=== PATIENT | female | born 1960 | race Caucasian/White ===

== ENCOUNTER 2019-11-24 10:06 | Outpatient (CLI) | payer BC, SELFPAY ==
--- NOTE | 2019-11-24 | ECG_ITS ---
Measurements Intervals [place] Rate: 96 P: 62 TX: 144 QRS: -26 QRSD: 72 T: 74 QT: 326 QTc: 413 Interpretive Statements SINUS RHYTHM DELAYED PRECORDIAL R/S TRANSITION NONSPECIFIC T-WAVE ABNORMALITY- ANTEROLAT/HIGH LAT LEADS BASELINE ARTIFACT- II, III, AVF BORDERLINE ECG Electronically Signed On 11-24-2019 10:33:55 CDT by Daryn Knott D.O.
== END 2019-11-24 10:07 | disposition home or self-care (01) ==
PROVIDERS: PCP Emergency Medicine
DX: M20.42 Other hammer toe(s) (acquired), left foot (principal); Z01.818 Encounter for other preprocedural examination; R94.31 Abnormal electrocardiogram [ECG] [EKG]
CPT/HCPCS: 93005

== ENCOUNTER 2020-03-10 14:30 | Outpatient (CLI) | payer BC, SELFPAY ==
--- NOTE | ~2020-03-10 | US_ITS ---
EXAMINATION: US thyroid DATE: 03/10/2020 14:54 INDICATION: Hypothyroidism. TECHNIQUE: Multiple ultrasound images of the thyroid were obtained. COMPARISON: Ultrasound 10/22/2009 FINDINGS: The right thyroid lobe is absent. The left thyroid lobe measures 3.1 x 1.3 x 1.3 cm. The left thyroi d lobe is hypoechoic with coarsened echotexture. Vascularity is normal. No discrete nodule. IMPRESSION: 1. Chronic heterogeneity of the left thyroid lobe, consistent with chronic thyroiditis. Reviewed, dictated and finalized at location A. AGE CONTROL OPERATOR FORMING IMPRESSION: 1. Chronic heterogeneity of the left thyroid lobe, consistent with chronic thyr oiditis.
--- NOTE | ~2020-03-10 | MM_ITS ---
EXAMINATION: MM screening roel BI w willie HISTORY: Screening mammogram TECHNIQUE: Craniocaudal and mediolateral oblique 3-D tomosynthesis images were obtained and synthetic 2-D images were generated. CAD analysis was submitted and interpreted. COMPARISON: 09/04/2018, 01/02/2016 bilateral digital screening mammogram examinations BREAST PARENCHYMAL COMPOSITION: The breasts are heterogeneously dense, which may obscure small masses . FINDINGS: There are 2 biopsy markers on the right; history of prior benign right breast biopsy. There are scattered bilateral benign calcifications. There is no evidence of suspicious mass, calcifi cation, or architectural distortion to suggest malignancy in either breast. There has been no suspici ous interval change. IMPRESSION: 1. No mammographic evidence of malignancy. 2. Recommend routine screening mammography in one year. BI-RADS Category 2: Benign finding(s). Reviewed, dictated and finalized at location A. ICAL CONSULTANT
== END 2020-03-10 14:31 | disposition home or self-care (01) ==
PROVIDERS: PCP Emergency Medicine; Visit Provider Emergency Medicine
DX: Z12.31 Encounter for screening mammogram for malignant neoplasm of breast (principal); E03.9 Hypothyroidism, unspecified
CPT/HCPCS: 76536; 77063; 77067

== ENCOUNTER 2020-03-31 14:39 | Outpatient (CLI) | payer BC, SELFPAY ==
--- NOTE | ~2020-03-31 | DEXA_ITS ---
Bone Density Report Name: Manda Chavez Age: 59 Sex: Female Ethnicity: White Date of : 1960 Indication: postmenopausal; hysterectomy; Referring Provider: YOKASTA MAJOR Study: Bone densitometry was performed. Exam Date: March 31, 2020 Accession number: [id number] Bone Density: Region BMD T-score Z-score Classification AP Spine (L1-L4) 1.076 0.3 1.6 Normal Femoral Neck (Left) 0.827 -0.2 1.0 Normal Total Hip (Left) 1.063 1.0 1.8 Normal Total Hip Bilateral Avg 1.080 1.2 1.9 Normal Femoral Neck (Right) 0.980 1.2 2.4 Normal Total Hip (Right) 1.095 1.3 2.1 Normal World Health Organization criteria for BMD impression classify patients as: Normal (T-score at or above -1.0), Osteopenia (T-score between -1.0 and -2.5), or Osteoporosis (T-score at or below -2.5). 10-year Fracture Risk: FRAX not reported because: All T-scores for Spine Total, Hip Total, Femoral Neck at or above -1.0 Previous Exams: Region Exam Age BMD T-score BMD Change BMD Change Date g/cm2 vs Baseline vs Previous AP Spine(L1-L4) 03/31/2020 59 1.076 0.3 -0.098(-8.4%)# -0.075(-6.5%)* 08/11/2012 51 1.152 1.0 -0.023(-2.0%)# -0.023(-2.0%)# 04/17/2008 47 1.175 1.2 Total Hip(Left) 03/31/2020 59 1.063 1.0 -0.048(-4.3%)# -0.053(-4.7%)* 08/11/2012 51 1.115 1.4 0.005(0.4%)# 0.005(0.4%)# 04/17/2008 47 1.111 1.4 Total Hip(Right) 03/31/2020 59 1.095 1.3 -0.008(-0.7%)# -0.053(-4.6%)* 08/11/2012 51 1.148 1.7 0.045(4.1%)# 0.045(4.1%)# 04/17/2008 47 1.103 1.3 *Denotes significance at 95% confidence level, LSC for AP Spine = 0.022 g/cm2, LSC for Total Hip = 0.027 g/cm2 Clinical Information Provided by Patient: Has the following medical conditions: Hysterectomy Patient maximum height was 67 Menopause Age: 51 No regular weight bearing exercise Drinks caffeinated beverages Onset of menses at age 13 Number of children 0 Impression: The patient has normal bone mass. The BMD for the AP Spine(L1-L4) decreased, changing by -6.5% since the last DXA exam. The BMD for the Total Hip(Left) decreased, changing by -4.7% since the last DXA exam. The BMD for the Total Hip(Right) decreased, changing by -4.6% since the last DXA exam. Discussion: BONE DENSITY IS ABOVE THE MINIMUM DESIRABLE LEVEL AT ALL SKELETAL SITES TESTED. This patient?s bone mineral density is above the minimum desirable level (T-score -1.0 or better) at all sites measured. The p
== END 2020-03-31 14:40 | disposition home or self-care (01) ==
PROVIDERS: PCP Emergency Medicine; Visit Provider Emergency Medicine
DX: N95.9 Unspecified menopausal and perimenopausal disorder (principal)
CPT/HCPCS: 77080

== ENCOUNTER 2020-04-08 00:53 | Outpatient (CLI) | payer BC, SELFPAY ==
[2020-04-08 18:46] LABS: SARS-CoV-2 RNA PCR Negative
== END 2020-04-08 00:54 | disposition home or self-care (01) ==
LOC: ANHCOVIDDT 00:54
PROVIDERS: PCP Emergency Medicine; Visit Provider Internal Medicine Gastroenterology
DX: Z01.812 Encounter for preprocedural laboratory examination (principal); Z20.822 Contact with and (suspected) exposure to COVID-19
CPT/HCPCS: C9803; U0003; U0005

== ENCOUNTER 2020-04-11 01:53 | Day surgery (SDC) | payer BC, SELFPAY ==
[2020-04-01 08:12] VITALS: BMI 36.6
[2020-04-11 09:09] VITALS: BP 146/109; PULSE 106; RESP 20; TEMP 37.2; O2SAT 99
[2020-04-11] MEDS: LACTATED RINGERS 1,000 ML 150 ML IV CONT (09:19)
--- NOTE | 2020-04-11 10:20 | PM.HPGS ---
History of Present Illness History of Present Illness Consent: Risks, benefits, and alternatives have been discussed and questions answered. Patient agrees to proceed with procedure. Chief complaint: Neoplasm Screening Narrative: Manda Chavez is a 59 year old female here for screening colonoscopy Review of Systems Constitutional: Constitutional: Denies headache(s) and Denies weakness Eyes: Eyes: Denies blurry vision ENT: Reports Normal hearing present, Denies headache(s) and Denies neck pain Cardiovascular: Cardiovascular: Denies chest pain and Denies dyspnea Respiratory: Respiratory: Denies dyspnea Gastrointestinal: Gastrointestinal: Reports no additional gastrointestinal complaints Genitourinary: Genitourinary: Denies dysuria Musculoskeletal: Musculoskeletal: Denies neck pain Integumentary/Breasts: Skin/Breast: Denies dry skin Neurologic: Reports Normal hearing present, Denies headache(s) and Denies weakness Psychiatric: Psychiatric: Denies anxiety Endocrine: Endocrine: Denies change in body appearance Hematologic/Lymphatic: Hematologic/Lymphatic: Denies easy bleeding Allergic/Immunologic: Allergic/Immunologic: Denies urticaria PMFSH Past Medical History Medical History Hypothyroidism (acquired) Family History Family History Sibling Diabetes mellitus Family history of seizure disorder Father Family history of lung cancer, Onset Age: 59 Social History Social History Smoking status: Never smoker Alcohol intake: never Substance use type: does not use Living arrangements: with family Spiritual care concerns: No Meds Home Medications and Allergies Home Medications Medication Instructions Recorded Confirmed Type zolpidem 10 mg tablet 10 mg PO ONCE #30 tablet 06/15/19 04/11/20 Rx levothyroxine 125 mcg tablet See Rx Instructions PO DAILY #90 02/09/20 04/11/20 Rx tablet cetirizine [Zyrtec] 10 mg PO DAILY 04/01/20 04/11/20 History omega 5-wbm-hox-fish oil [Fish Oil] 1 cap PO DAILY 04/01/20 04/11/20 History Allergies Allergy/AdvReac Type Severity Reaction Status Date / Time Penicillins Allergy Unknown Unknown Verified 04/11/20 09:08 Vital Signs Vital Signs - 24 hr 04/11/20 09:09 Temperature 99.0 F Pulse Rate 106 H Respiratory Rate 20 Blood Pressure 146/109 H Pulse Oximetry 99 Exam Const: General: comfortable and no acute distress HENMT: General nose exam: Normal nares present Eyes: General: appearance normal, both eyes and all related structures Neck: Neck: no JVD Resp: Auscultation: clear to auscultation bilaterally Cardio: Rate: regular rate Rhythm: regular rhythm GI: Inspection: non-distended GI Palp: Yes Soft to palpation Skin: General skin exam: normal color Neuro: General: gait normal Speech: normal speech Extrem: General: normal to inspection Psych: Mental Status: mental status grossly normal Assessment and Plan Assessment and plan (1) Colon cancer screening: Code(s): Z12.11 - Encounter for screening for malignant neoplasm of colon Status: Acute Assessment and Plan: will proceed with colonoscopy
--- NOTE | 2020-04-11 10:23 | WPDANESEPP ---
Anes - Eval Pre Procedure Procedure: Operation Date: 04/11/20 10:45 Proposed Procedures p Screening Colonoscopy - Portillo Stevens MD Date/Time: 04/11/20 10:23 Pre Op Diagnosis: Neoplasm Screening Patient Data Age: 59 Gender: F Height: 5 ft 7 in Weight: 106.2 kg Last Vital Signs Temp 99.0 F 04/11/20 09:09 Pulse 106 H 04/11/20 09:09 Resp 20 04/11/20 09:09 BP 146/109 H 04/11/20 09:09 Pulse Ox 99 04/11/20 09:09 Allergies Allergy/AdvReac Type Severity Reaction Status Date / Time Penicillins Allergy Unknown Unknown Verified 04/11/20 09:08 Home Medications Medication Instructions Recorded Confirmed Type zolpidem 10 mg tablet 10 mg PO ONCE #30 tablet 06/15/19 04/11/20 Rx levothyroxine 125 mcg tablet See Rx Instructions PO DAILY #90 02/09/20 04/11/20 Rx tablet cetirizine [Zyrtec] 10 mg PO DAILY 04/01/20 04/11/20 History omega 2-wku-ehn-fish oil [Fish Oil] 1 cap PO DAILY 04/01/20 04/11/20 History Patient hx anesthesia problems: none Family hx anesthesia problems: none PMFSH Past Medical History Medical History (Updated 04/11/20 @ 10:24 by Gaurav Escalante CRNA) Hypothyroidism (acquired) Obesity Surgical History Surgical History (Updated 04/11/20 @ 10:23 by Gaurav Escalante CRNA) H/O arthroscopy of knee H/O: hysterectomy Family History Family History Sibling Diabetes mellitus Family history of seizure disorder Father Family history of lung cancer, Onset Age: 59 Social History Social History Smoking status: Never smoker Alcohol intake: never Substance use type: does not use Living arrangements: with family Spiritual care concerns: No Exam Day of Procedure 04/11/20 10:23 Patient weight: obese Heart: regular rate and rhythm Lungs: clear to auscultation Airway: Mallampati scale class II Risks: SR VR 96
[2020-04-11 10:53] VITALS: BP 131/89; PULSE 96; RESP 16; O2SAT 95
[2020-04-11 11:03] VITALS: BP 146/98; PULSE 95; RESP 20; O2SAT 96
[2020-04-11 11:13] VITALS: BP 160/99; PULSE 92; RESP 22; O2SAT 98
== END 2020-04-11 11:44 | disposition home or self-care (01) ==
PROVIDERS: PCP Emergency Medicine; Visit Provider Internal Medicine Gastroenterology
PROC: 0DJD8ZZ Inspection of Lower Intestinal Tract, Via Natural or Artificial Opening Endoscopic (ICD-10-PCS; CPT 45378; principal; 2020-04-11 10:45)
DX: Z12.11 Encounter for screening for malignant neoplasm of colon (principal); E03.9 Hypothyroidism, unspecified; E66.8 Other obesity; Z68.36 Body mass index [BMI] 36.0-36.9, adult; K57.30 Diverticulosis of large intestine without perforation or abscess without bleeding; K64.8 Other hemorrhoids
CPT/HCPCS: 45378; J2704; J7120

== ENCOUNTER 2021-09-19 07:20 | Outpatient (CLI) | payer BC, SELFPAY ==
--- NOTE | ~2021-09-19 | MM_ITS ---
EXAMINATION: MM screening roel BI w willie HISTORY: Screening TECHNIQUE: Craniocaudal and mediolateral oblique 3-D tomosynthesis images were obtained and synthetic 2-D images were generated. CAD analysis was submitted and interpreted. COMPARISON: Comparison to multiple prior studies sequentially, with oldest reviewed study dated 12/13. BREAST PARENCHYMAL COMPOSITION: The breasts are extremely dense, which lowers the sensitivity of mamm ography FINDINGS: Bilateral breast asymmetries are stable. There are tissue markers in the right breast from prior benign biopsies. There is no evidence of suspicious mass, calcification, or architectural disto rtion to suggest malignancy in either breast. There has been no suspicious interval change. IMPRESSION: 1. No mammographic evidence of malignancy. 2. Recommend routine screening mammography in one year. BI-RADS Category 1: Negative Reviewed, dictated and finalized at location A.
== END 2021-09-19 07:21 | disposition home or self-care (01) ==
LOC: ANHIMG 07:22
PROVIDERS: PCP Emergency Medicine; Visit Provider Obstetrics & Gynecology
DX: Z12.31 Encounter for screening mammogram for malignant neoplasm of breast (principal)
CPT/HCPCS: 77063; 77067

== ENCOUNTER 2022-01-26 13:00 | Outpatient (CLI) | payer BC, SELFPAY ==
[2022-01-26 13:56] LABS: SARS-CoV-2 RNA PCR Positive
== END 2022-01-26 13:01 | disposition home or self-care (01) ==
LOC: ANHLAB 13:02
PROVIDERS: PCP Emergency Medicine; Visit Provider Emergency Medicine
DX: U07.1 COVID-19 (principal)
CPT/HCPCS: U0003; U0005

== ENCOUNTER 2022-04-09 11:23 | Outpatient (CLI) | payer BC, SELFPAY ==
--- NOTE | ~2022-04-09 | XR_ITS ---
XR hip RT 2V w AP pelvis DATE: 04/09/2022 11:39 INDICATION: Right hip pain. Strained groin. TECHNIQUE: AP pelvis. AP and lateral views of right hip COMPARISON: None FINDINGS: Mild lumbar levoscoliosis. The pubic symphysis and sacral iliac joints are intact. No pelvic fracture or bone destruction is det ected. Mild left hip osteoarthritic arthritis. Moderately severe right hip osteoarthritis including joint space narrowing and prominent spurring of the right femoral head. No fracture or dislocation, avascular necrosis or bone destruction of the right hip is detected. IMPRESSION: Moderately severe right hip osteoarthritis Reviewed, dictated and finalized at location B. GENERALIST
== END 2022-04-09 11:24 | disposition home or self-care (01) ==
PROVIDERS: PCP Emergency Medicine; Visit Provider Emergency Medicine
DX: M25.551 Pain in right hip (principal); M16.11 Unilateral primary osteoarthritis, right hip
CPT/HCPCS: 73502

== ENCOUNTER 2022-06-20 13:30 | Outpatient (RCR) | payer BC, SELFPAY ==
--- NOTE | 2022-05-09 15:29 | PTOPEVAL1 ---
Assessment and note entered by Brittany Craig DPT Evaluation Information Assessment Status Evaluation Subjective Information Pt reports bilateral hip pain and OA, reports most of her issue is the right side. Highest pain 9/10 and lowest 0/10. At times gets a stabbing pain with walking, sometimes with rolling over in bed. Sometimes has pain with stairs and sit to stand, or pain with twisting like while doing dishes at her sink. Has been avoiding exercise due to pain. 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 Some pain relief with heat. Sees at the end of May. Reported Pain Level Pain Score 5: Self Report Assessment PT Clinical Summary The patient is presenting to skilled therapy with bilateral hip OA and reports much more pain in her right. She presents with decreased lower extremity strength and gait impairments which are contributing to her pain and difficulty with activities like walking, sit to stand, or rolling over. She will benefit from therapy to address these impairments and safely reduce pain and dysfunction. Plan of Care Interventions Electrical Stimulation,Gait Training,Hot Pack/Cold Pack,Manual Therapy,Neuro Re-education,Patient/ Caregiver Education,Therapeutic Activities, Therapeutic Exercise,Self-Care/Home Management PT Services Indicated Yes Treatment Frequency and 2 times a week for 6 weeks Duration These treatments will address the objective and functional deficits as defined above. The patient will be advanced safely and appropriately in order for the patient to progress towards his/her prior level of function. Additional exercises will be introduced and as well as a comprehensive home exercise program upon discharge, if needed, ?to ensure carryover of functional gains achieved in the clinic. This treatment plan has been reviewed and agreement upon by the patient.
--- NOTE | 2022-05-28 16:14 | PCPTNOTE ---
Patient did not show up for scheduled appointment this date. Called was unable to leave a message mailbox was full.
--- NOTE | 2022-06-20 13:59 | PTOPDC ---
Assessment and note entered by Brittany Craig DPT Evaluation Information Assessment Status Discharge Subjective Information Pt reports feeling the same . Still having pain with certain movements like twisting her legs. Highest pain 10/10 and lowest 0/10. Just saw Dr. Esparza today, still needs to lose 15 pounds prior to doing a total hip replacement. Nothing scheduled so far. Reported Pain Level Pain Score 5: Self Report Assessment PT Clinical Summary The patient has reached a plateau in progress in therapy. She reports her pain is the same as prior to starting therapy. She demonstrates some strength improvements but worse scores on the 5 times sit to stand and 2 minute walk test. Due to these findings, plan to discharge therapy. She has been educated in a thorough HEP to continue addressing strength and function independently, and to follow up with PT and/or MD as needed. Plan of Care Interventions PT Services Indicated No Treatment Frequency and - Duration
== END 2022-06-21 08:40 | disposition home or self-care (01) ==
LOC: ANHPT 13:30
PROVIDERS: PCP Emergency Medicine; Visit Provider Orthopaedic Surgery
DX: M16.0 Bilateral primary osteoarthritis of hip (principal)
CPT/HCPCS: 97014; 97110; 97112; 97140; 97161; 97530; 99199; G0283

== ENCOUNTER 2023-02-03 08:57 | Emergency (ER) | payer BC, SELFPAY ==
--- NOTE | ~2023-02-03 | XR_ITS ---
EXAMINATION: XR chest 2V DATE: 02/03/2023 09:33 INDICATION: Cough. Wheezing. Shortness of breath. TECHNIQUE: Frontal and lateral views of the chest were obtained. COMPARISON: Chest 2 views 03/19/2018 FINDINGS: There is mild atelectasis in left lower lung zone. No pleural effusion or pneumothorax. The heart size is normal. IMPRESSION: 1. Mild atelectasis in left lower lung zone. Reviewed, dictated and finalized at location E. SPLICER
[2023-02-03 09:05] VITALS: BP 155/90; PULSE 99; RESP 18; TEMP 37.1; O2SAT 97
--- NOTE | 2023-02-03 09:26 | ED.GENADULT ---
HPI - General Adult General Chief complaint: Upper Respiratory Infection Stated complaint: Sinus Source: patient Mode of arrival: ambulatory Limitations: no limitations History of Present Illness HPI narrative: Patient presents for evaluation of sick symptoms for over 2 weeks. Symptoms include chest congestion, productive cough of yellow/green sputum, mild shortness of breath, and low-grade fever. No chills, nausea, vomiting or diarrhea. She does not smoke. She states several individuals where she works are sick. She had RSV, COVID and flu vaccines recently. She has taken mucinex for her symptoms. Related Data Home Medications Medication Instructions Recorded Confirmed omega 4-smx-fdo-fish oil 1,000 mg 1 cap PO DAILY 04/01/20 02/03/23 (120 mg-180 mg) capsule (Fish Oil) fexofenadine 60 mg tablet (Yolande 60 mg PO Q12H 01/30/21 02/03/23 Allergy) acetaminophen 650 mg 650 mg PO Q12H 10/16/22 02/03/23 tablet,extended release Allergies Allergy/AdvReac Type Severity Reaction Status Date / Time codeine Allergy Intermediate Hives Verified 10/16/22 08:55 Penicillins Allergy Unknown rash hives Verified 10/16/22 08:55 Review of Systems Review of Systems: CONSTITUTIONAL: Reports low grade fever. Denies chills or sweats. EYES: Denies visual changes, redness, or discharge. ENT: Denies rhinorrhea, congestion, sore throat, or otalgia. CARDIOVASCULAR: Denies chest pain, palpitations, or edema. RESPIRATORY: Reports productive cough of yellow/green sputum and mild SOB GASTROINTESTINAL: Denies abdominal pain, nausea, vomiting, or diarrhea. GENITOURINARY: Denies dysuria or hematuria. SKIN: Denies rash or itching. MUSCULOSKELETAL: Denies back pain, joint pain, or myalgia. NEUROLOGIC: Denies headache, numbness, dizziness, or weakness. PSYCHIATRIC: Denies anxiety or depression. 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 spouse HTN (hypertension) Hypothyroidism (acquired) Obesity Osteoarthritis Screening mammogram, encounter for Surgical History Surgical History H/O arthroscopy of knee left H/O LEEP (~1993) H/O: hysterectomy (05/02/17) RATLH with BSO; uterine prolapse, cervical dysplasia History of colposcopy (01/19/15) Benign History of colposcopy (01/21/17) History of foot surgery right x 2 History of gynecological procedure (11/24/11) endometrial ablation History of gynecological procedure (09/17/11) RA laproscopy w/ adhesiolysis History of partial thyroidectomy (~2002) right side History of tonsillectomy Hx of LASIK Family History Family History Sibling Diabetes mellitus Family history of seizure disorder Pancreatitis Father Family history of lung cancer, Onset Age: 59 Other Heart disease Social History Social History Smoking status: Never smoker Alcohol intake: current Alcohol use details: 1-2 month Substance use: current Substance use type: marijuana Other substance usage details: gummie at night for sleep Lack of Transportation: No Lack of Food: Never True Current Housing: I Have Housing Concerned About Future Housing: No Difficulty Paying Gas/Electric Bills: No Difficulty Paying for Meds: No Currently Unemployed: No Education: Bachelor's Degree Difficulty w/ Childcare or Family Care: No Living arrangements: alone Additional living arrangements comments: Occupation/Education: occupation 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
[2023-02-03] MEDS: IPRATROPIUM BR 0.02% INH SOLN 0.5 MG/2.5 ML VIAL INHALATION (09:38)
[2023-02-03] MEDS: ALBUTEROL SULFATE NEB 2.5 MG/3 ML INH INHALATION (09:38)
[2023-02-03] MEDS: methylPREDNISolone SOD SUCC 125 MG VIAL IM (09:38)
== END 2023-02-03 10:25 | disposition home or self-care (01) ==
PROVIDERS: Emergency Provider Nurse Practitioner; PCP Emergency Medicine
DX: J32.9 Chronic sinusitis, unspecified (principal); I10 Essential (primary) hypertension; E03.9 Hypothyroidism, unspecified; M16.0 Bilateral primary osteoarthritis of hip; E66.9 Obesity, unspecified; Z68.33 Body mass index [BMI] 33.0-33.9, adult
CPT/HCPCS: 71046; 94640; 96372; 99213; G0463; J2930

== ENCOUNTER 2023-02-13 09:23 | Emergency (ER) | payer BC, SELFPAY ==
--- NOTE | ~2023-02-13 | XR_ITS ---
EXAMINATION: XR chest 2V DATE: 02/13/2023 11:02 INDICATION: Productive cough TECHNIQUE: PA and lateral views of the chest are obtained. COMPARISON: 02/03/2023 FINDINGS: There is mild atelectasis of the left lower lung zone. No pleural effusion or pneumothorax. The cardiomediastinal silhouette is normal. There is mild thoracic spondylosis. IMPRESSION: 1. Mild atelectasis of the left lower lung zone. Reviewed, dictated and finalized at location F. E TELEVISION PROGRAM DIRECTOR
[2023-02-13 09:35] VITALS: BP 127/77; PULSE 82; RESP 16; TEMP 37.2; O2SAT 95
--- NOTE | 2023-02-13 10:30 | ED.GENADULT ---
HPI - General Adult General Chief complaint: Upper Respiratory Infection Stated complaint: bad cough Time Seen by Provider: 02/13/23 10:41 Source: patient Mode of arrival: ambulatory Limitations: no limitations History of Present Illness HPI narrative: 62 y/o female presented for continued cough and chest congestion with mild sob for over 3 weeks. Pt was seen here on 02/03/23 for the same symptoms, and states she completed the antibiotic and steroid as directed but feels no improvement. denies chest pain, palpitations, wheezing, nausea, vomiting, diarrhea, fevers or chills. She has taken Mucinex and uses nasal spray and Yolande. Related Data Home Medications Medication Instructions Recorded Confirmed omega 7-vwz-ekv-fish oil 1,000 mg 1 cap PO DAILY 04/01/20 02/03/23 (120 mg-180 mg) capsule (Fish Oil) fexofenadine 60 mg tablet (Yolande 60 mg PO Q12H 01/30/21 02/03/23 Allergy) acetaminophen 650 mg 650 mg PO Q12H 10/16/22 02/03/23 tablet,extended release Flonase 02/13/23 Allergies Allergy/AdvReac Type Severity Reaction Status Date / Time codeine Allergy Intermediate Hives Verified 02/13/23 10:49 Penicillins Allergy Unknown rash hives Verified 02/13/23 10:49 Review of Systems Review of Systems: CONSTITUTIONAL: Denies body aches, fever, chills, or sweats. EYES: Denies visual changes, redness, or discharge. ENT: Denies rhinorrhea, congestion, sore throat, or otalgia. CARDIOVASCULAR: Denies chest pain, palpitations, or edema. RESPIRATORY: Reports cough, sob GASTROINTESTINAL: Denies abdominal pain, nausea, vomiting, or diarrhea. GENITOURINARY: Denies dysuria or hematuria. SKIN: Denies rash, itching, or wounds. MUSCULOSKELETAL: Denies back pain, joint pain, or myalgia. NEUROLOGIC: Denies headache, numbness, tingling, or weakness. All systems reviewed & are unremarkable except as noted in HPI and below PMFSH Past Medical History Medical History Bilateral hip joint arthritis Depression after loss of spouse HTN (hypertension) Hypothyroidism (acquired) Obesity Osteoarthritis Screening mammogram, encounter for Surgical History Surgical History H/O arthroscopy of knee left H/O LEEP (~1993) H/O: hysterectomy (05/02/17) RATLH with BSO; uterine prolapse, cervical dysplasia History of colposcopy (01/19/15) Benign History of colposcopy (01/21/17) History of foot surgery right x 2 History of gynecological procedure (11/24/11) endometrial ablation History of gynecological procedure (09/17/11) RA laproscopy w/ adhesiolysis History of partial thyroidectomy (~2002) right side History of tonsillectomy Hx of LASIK Family History Family History Sibling Diabetes mellitus Family history of seizure disorder Pancreatitis Father Family history of lung cancer, Onset Age: 59 Other Heart disease Social History Social History Smoking status: Never smoker Alcohol intake: current Alcohol use details: 1-2 month Substance use: current Substance use type: marijuana Other substance usage details: gummie at night for sleep Lack of Transportation: No Lack of Food: Never True Current Housing: I Have Housing Concerned About Future Housing: No Difficulty Paying Gas/Electric Bills: No Difficulty Paying for Meds: No Currently Unemployed: No Education: Bachelor's Degree Difficulty w/ Childcare or Family Care: No Living arrangements: alone Additional living arrangements comments: Occupation/Education: occupation 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
== END 2023-02-13 11:22 | disposition home or self-care (01) ==
PROVIDERS: Emergency Provider Nurse Practitioner Family; PCP Emergency Medicine
DX: R05.9 Cough, unspecified (principal); E03.9 Hypothyroidism, unspecified; I10 Essential (primary) hypertension
CPT/HCPCS: 71046; 99213; G0463

== ENCOUNTER 2023-02-22 06:40 | Outpatient (CLI) | payer BC, SELFPAY ==
--- NOTE | ~2023-02-22 | CT_ITS ---
EXAMINATION: CT sinus wo con DATE: 02/22/2023 06:57 INDICATION: Chronic sinusitis TECHNIQUE: Computed tomography (CT) of the paranasal sinuses was performed without intravenous contra st. The dose-length product was 250.27 mGy-cm. Automated exposure control and iterative reconstructio n technique were employed. COMPARISON: None FINDINGS: There is mucosal thickening of the ethmoid and left sphenoid sinus. No air-fluid levels. No significant mucoperiosteal reaction. Leftward nasal septal deviation. Ostiomeatal unit on the right is patent. Left ostiomeatal unit is partially occluded by soft tissue. Mastoids are pneumatized. IMPRESSION: 1. Mild sinusitis. Reviewed, dictated and finalized at location B. REPAIRER BENCH IMPRESSION: 1. Mild sinusitis.
== END 2023-02-22 06:41 | disposition home or self-care (01) ==
PROVIDERS: PCP Emergency Medicine; Visit Provider Emergency Medicine
DX: J32.9 Chronic sinusitis, unspecified (principal)
CPT/HCPCS: 70486

== ENCOUNTER 2023-03-01 17:05 | Emergency (ER) | payer BC, SELFPAY ==
[2023-03-01 17:17] VITALS: BP 151/87; PULSE 99; RESP 18; TEMP 38.1; O2SAT 95
--- NOTE | 2023-03-01 17:53 | ED.URI ---
HPI - URI/Sore Throat General Chief Complaint: Upper Respiratory Infection Stated Complaint: Sinus Time Seen by Provider: 03/01/23 17:34 Source: patient, RN notes reviewed and old records reviewed Mode of arrival: ambulatory Limitations: no limitations History of Present Illness HPI Narrative: Patient presents today complaining of nasal congestion, rhinorrhea, cough, sinus pressure since December. Since that time she has been on 2 rounds of antibiotics and 2 rounds of steroids without relief. She has been to see her PCP, last visit was 4 days ago after she had a sinus CT done. It showed mild sinusitis and patient was instructed to use Flonase and an antihistamine. She is scheduled to see ENT on March 28 for follow-up. Patient presents today asking if she can be placed on an additional course of antibiotics to see if this will help with her symptoms. She has been using Flonase,Vicks, Yolande, and a saline nasal rinse at home for her symptoms. Cough and congestion has not changed in severity. Denies shortness of breath, chest pain. She also reports a new onset fever last night up to 101.9 at home. She took a dose of aspirin at 4:00 p.m. today. 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 Related Data Home Medications Medication Instructions Recorded Confirmed omega 4-wgm-maa-fish oil 1,000 mg 1 cap PO DAILY 04/01/20 03/01/23 (120 mg-180 mg) capsule (Fish Oil) fexofenadine 60 mg tablet (Yolande 60 mg PO Q12H 01/30/21 03/01/23 Allergy) fluticasone propionate 50 1 spray intranasal BID 02/19/23 03/01/23 mcg/actuation nasal spray,suspension (Flonase Allergy Relief) Allergies Allergy/AdvReac Type Severity Reaction Status Date / Time codeine Allergy Intermediate Hives Verified 03/01/23 17:20 Penicillins Allergy Unknown rash hives Verified 03/01/23 17:20 Review of Systems Review of Systems: CONSTITUTIONAL: Denies body aches, chills, or sweats.+ fever EYES: Denies visual changes, redness, or discharge. ENT: Denies sore throat, or otalgia.+ rhinorrhea, congestion, sinus pressure CARDIOVASCULAR: Denies chest pain, palpitations, or edema. RESPIRATORY: Denies dyspnea.+ cough GASTROINTESTINAL: Denies abdominal pain, nausea, vomiting, or diarrhea. GENITOURINARY: Denies dysuria or hematuria. SKIN: Denies rash, itching, or wounds. MUSCULOSKELETAL: Denies back pain, joint pain, or myalgia. NEUROLOGIC: Denies headache, numbness, tingling, or weakness. PSYCH: Denies depression or anxiety. [facility] Past Medical History Medical History Bilateral hip joint arthritis Depression after loss of spouse HTN (hypertension) Hypothyroidism (acquired) Obesity Osteoarthritis Screening mammogram, encounter for Surgical History Surgical History H/O arthroscopy of knee left H/O LEEP (~1993) H/O: hysterectomy (05/02/17) RATLH with BSO; uterine prolapse, cervical dysplasia History of colposcopy (01/19/15) Benign History of colposcopy (01/21/17) History of foot surgery right x 2 History of gynecological procedure (11/24/11) endometrial ablation History of gynecological procedure (09/17/11) RA laproscopy w/ adhesiolysis History of partial thyroidectomy (~2002) right side History of tonsillectomy Hx of LASIK Family History Family History Sibling Diabetes mellitus Family history of seizure disorder Pancreatitis Father Family history of lung cancer, Onset Age: 59 Other Heart disease Social History Social History Smoking status: Never smoker Alcohol intake: current Alcohol use details: 1-2 month Substance use: current Substance use type: marijuana Other substance usage details: gummie at night for sleep Lack of Transportation: No
== END 2023-03-01 18:25 | disposition home or self-care (01) ==
PROVIDERS: Emergency Provider Nurse Practitioner; PCP Emergency Medicine
DX: R50.9 Fever, unspecified (principal); J32.9 Chronic sinusitis, unspecified; I10 Essential (primary) hypertension; E03.9 Hypothyroidism, unspecified; Z79.899 Other long term (current) drug therapy; Z20.822 Contact with and (suspected) exposure to COVID-19
CPT/HCPCS: 87420; 87426; 87804; 99213; C9803; G0463

== ENCOUNTER 2023-03-03 16:41 | Emergency (ER) | payer BC, SELFPAY ==
[2023-03-03] VITALS (15 sets, daily range): BP systolic 123–151; BP diastolic 78–84; PULSE 102–118; RESP 17–20; TEMP 36.5–38; O2SAT 93–98
--- NOTE | ~2023-03-03 | XR_ITS ---
EXAMINATION: XR chest 2V Exam Date/Time: 03/03/2023 17:26 STEAM BOX HAND HISTORY: cough, fevers, uri sxs Comparison: 02/13/2023. RESULT: Lines, tubes, and devices: None. Lungs and pleura: Segmental left lower lobe consolidation. Cardiomediastinal silhouette: Stable. Other: No acute osseous or upper abdominal finding. IMPRESSION: Segmental left lower lobe airspace disease concerning for pneumonia. Reviewed, dictated and finalized at location K. M BOX HAND
[2023-03-03 17:40] LABS: Influenza A QL RT-PCR Negative (Negative); Influenza B QL RT-PCR Negative (Negative); RSV RNA, RT-PCR Negative (Negative); SARS-CoV-2 RNA PCR Negative (Negative)
[2023-03-03 17:51] LABS: Basophils Percent Auto 0.4 % (0.2-1.2); Eosinophils Absolute Auto 0.1 K/mm3 (0-0.3); Eosinophils Percent Auto 1.2 % (0-4.4); Hematocrit 41.6 % (37.0-47.0); Hemoglobin 13.1 g/dL (12.0-15.0); Immature Granulocyte Absolute 0.03 K/mm3 (0.00-0.031); Immature Granulocyte Percent A 0.3 % (0-0.5); Lymphocytes Absolute Auto 1.01 K/mm3 (0.9-3.2); Lymphocytes Percent Auto 9.8 % (18.3-44.2); Mean Corpuscular HGB Conc 31.5 g/dl (32-36); Mean Corpuscular Hemoglobin 26.5 pg (26-34); Mean Platelet Volume 8.7 fl (7.4-10.4); Monocytes Absolute Auto 0.9 K/mm3 (0.1-0.6); Neutrophils Absolute Auto 8.2 K/mm3 (1.3-6.7); Neutrophils Percent Auto 79.3 % (45.5-73.1); Platelet Count Result 227 k/mm3 (150-375); Red Blood Count 4.95 M/mm3 (4.2-5.4); Red Cell Distribution Width 14.1 % (11.5-14.5); White Blood Count 10.3 K/mm3 (4.5-10.0)
--- NOTE | 2023-03-03 18:02 | ED.URI ---
HPI - URI/Sore Throat General Chief Complaint: Upper Respiratory Infection Stated Complaint: congestion Time Seen by Provider: 03/03/23 17:02 Source: patient and old records reviewed Mode of arrival: ambulatory Limitations: no limitations History of Present Illness HPI Narrative: Patient is a 62-year-old female who presents to the ED with report of URI symptoms. Patient reports having persistent cough, congestion, intermittent fevers for the past 1.5 months, since before . She has been seen at the urgent care several times and been on courses of doxycycline and Levaquin, 2 courses of steroids, using an inhaler, Zyrtec/Yolande, and awpz-wlx-zhmejaa decongestants without improvement. She states since Saturday, she has had more persistent fevers. Today had a fever up to 103.4? F at home. She did take aspirin prior to arrival. Patient reports occasional production of sputum with cough. Denies shortness breath, chest pain. Denies any other infectious symptoms, abdominal pain, nausea, vomiting, diarrhea, constipation, dysuria, hematuria. Related Data Home Medications Medication Instructions Recorded Confirmed omega 0-yvj-qsm-fish oil 1,000 mg 1 cap PO DAILY 04/01/20 03/01/23 (120 mg-180 mg) capsule (Fish Oil) fexofenadine 60 mg tablet (Yolande 60 mg PO Q12H 01/30/21 03/01/23 Allergy) fluticasone propionate 50 1 spray intranasal BID 02/19/23 03/01/23 mcg/actuation nasal spray,suspension (Flonase Allergy Relief) Allergies Allergy/AdvReac Type Severity Reaction Status Date / Time codeine Allergy Intermediate Hives Verified 03/03/23 16:49 Penicillins Allergy Unknown rash hives Verified 03/03/23 16:49 Review of Systems Review of Systems: CONSTITUTIONAL: See PI. ENT: See HPI. CARDIOVASCULAR: Denies chest pain. RESPIRATORY: see HPI. GASTROINTESTINAL: Denies abdominal pain, nausea, vomiting, or diarrhea. GENITOURINARY: Denies dysuria or hematuria. MUSCULOSKELETAL: Denies back pain, joint pain, or myalgia. All systems reviewed & are unremarkable except as noted in HPI and below PMFSH Past Medical History Medical History Bilateral hip joint arthritis Depression after loss of spouse HTN (hypertension) Hypothyroidism (acquired) Obesity Osteoarthritis Screening mammogram, encounter for Surgical History Surgical History H/O arthroscopy of knee left H/O LEEP (~1993) H/O: hysterectomy (05/02/17) RATLH with BSO; uterine prolapse, cervical dysplasia History of colposcopy (01/19/15) Benign History of colposcopy (01/21/17) History of foot surgery right x 2 History of gynecological procedure (11/24/11) endometrial ablation History of gynecological procedure (09/17/11) RA laproscopy w/ adhesiolysis History of partial thyroidectomy (~2002) right side History of tonsillectomy Hx of LASIK Family History Family History Sibling Diabetes mellitus Family history of seizure disorder Pancreatitis Father Family history of lung cancer, Onset Age: 59 Other Heart disease Social History Social History Smoking status: Never smoker Alcohol intake: current Alcohol use details: 1-2 month Substance use: current Substance use type: marijuana Other substance usage details: gummie at night for sleep Lack of Transportation: No Lack of Food: Never True Current Housing: I Have Housing Concerned About Future Housing: No Difficulty Paying Gas/Electric Bills: No Difficulty Paying for Meds: No Currently Unemployed: No Education: Bachelor's Degree Difficulty w/ Childcare or Family Care: No Living arrangements: alone Additional living arrangements comments: Occupation/Education: occupation Additional occupatio
[2023-03-03 18:05] LABS: Lactic Acid Reflex 0.9 mmol/L (0.7-2.0)
[2023-03-03 18:07] LABS: Alanine Aminotransferase 42 U/L (6-35); Albumin Level 4.1 g/dL (3.5-5.1); Alkaline Phosphatase 99 U/L (38-126); Anion Gap 8 mmol/L (8-16); Aspartate Amino Transferase 52 U/L (14-36); Bilirubin,Total 0.6 mg/dL (0.2-1.3); Blood Urea Nitrogen 23 mg/dL (7-17); Calcium 8.8 mg/dL (8.4-10.2); Carbon Dioxide 22 mmol/L (22-30); Chloride 108 mmol/L (98-107); Estimated CRCL calculation 62 ml/min; Estimated Glomerular Filt Rate 56; Glucose 113 mg/dL (65-110); Potassium 4.2 mmol/L (3.4-5.0); Sodium 138 mmol/L (137-145)
[2023-03-03] MEDS: ACETAMINOPHEN 500 MG TABLET 1000 MG PO (18:37)
[2023-03-03] MEDS: SODIUM CHLORIDE 0.9% IV 1,000 ML 999 ML IV CONT ×2 (18:38→19:20)
[2023-03-03] MEDS: levoFLOXacin 750 MG/D5W 150 ML 750 MG/150 ML BAG 100 MG IVPB (18:38)
[2023-03-03 19:04] LABS: Appearance Urine Clear (Clear); Bilirubin Urine Negative (Negative); Blood Urine Negative (Negative); Color Urine Yellow (Yellow); Glucose Urine UA Negative (Negative); Ketones Urine Negative (Negative); Leukocyte Esterase Ur Negative LEU/UL (Negative); Nitrate Urine Negative (Negative); Protein Urine Negative (Negative); Specific Grav Ur 1.017 (1.001-1.035); Urobilinogen Urine 0.2 mg/dL (<2.0); pH Urine 5.5 (5.0-9.0)
--- NOTE | 2023-03-03 19:08 | PC.NURSE ---
Report received from MARCUS Rivera. Assumed care of patient at this time.
--- NOTE | 2023-03-03 19:10 | ECG_ITS ---
Measurements Intervals [place] Rate: 110 P: 49 TN: 142 QRS: -20 QRSD: 76 T: 42 QT: 333 QTc: 451 Interpretive Statements SINUS TACHYCARDIA WITH OCCASIONAL SUPRAVENTRICULAR PREMATURE COMPLEXES NONSPECIFIC T-WAVE ABNORMALITY ABNORMAL ECG COMPARED TO ECG 11/24/2019 10:28:01 SINUS TACHYCARDIA NOW PRESENT Electronically Signed On 03-04-2023 12:43:54 BLANKET BINDER by Gatito Ashby M.D.
[2023-03-03 19:21] LABS: Add Urine Microscopic? NO
--- NOTE | 2023-03-03 19:50 | PC.NURSE ---
Patient given water and crackers upon request.
--- NOTE | 2023-03-03 20:10 | PC.NURSE ---
Patient states she feels better and would like to go home. ERP notified and speaking with patient.
== END 2023-03-03 21:19 | disposition home or self-care (01) ==
PROVIDERS: Student in an Organized Health Care Education/Training Program; Emergency Provider Physician Assistant; PCP Emergency Medicine
DX: J18.9 Pneumonia, unspecified organism (principal); Z20.822 Contact with and (suspected) exposure to COVID-19; I10 Essential (primary) hypertension; E66.9 Obesity, unspecified; Z68.33 Body mass index [BMI] 33.0-33.9, adult; E89.0 Postprocedural hypothyroidism; M16.0 Bilateral primary osteoarthritis of hip; Z90.710 Acquired absence of both cervix and uterus
CPT/HCPCS: 36415; 71046; 80053; 81003; 83605; 85025; 87040; 87637; 93005; 96365; 96366; 96367; 99284; A9270; J0696; J1956; J7030

== ENCOUNTER → 2023-04-03 12:55 | Outpatient (CLI) | payer BC, SELFPAY ==
--- NOTE | ~2023-04-03 | MR_ITS ---
EXAMINATION: MR brain/brain stem wo/w con DATE: 04/03/2023 13:32 INDICATION: Encephalocele, unspecified. TECHNIQUE: Magnetic resonance imaging (MRI) of the brain and brainstem was performed without and with 20 mL MultiHance intravenous contrast. COMPARISON: Sinuses CT 02/22/2023 FINDINGS: There are scattered areas of nonspecific increased T2-weighted signal intensity in the cere bral white matter. There is no intracranial hemorrhage, acute infarction, or abnormal intracranial ma ss lesion. The ventricles are normal in size. There is mucosal thickening and dependent fluid in the paranasal sinuses. In the right ethmoid sinus, there is a 11 mm cyst contiguous with a skull base deh iscence. The orbits are normal. The mastoid air cells are normal. IMPRESSION: 1. 11 mm cyst in the right ethmoid sinus contiguous with a skull base dehiscence, consistent with an encephalocele. 2. Mild nonspecific cerebral white matter disease, which likely represents chronic small vessel ische marsha disease. Reviewed, dictated and finalized at location A. TER MIXER IMPRESSION: 1. 11 mm cyst in the right ethmoid sinus contiguous with a skull base dehiscenc e, consistent with an encephalocele. 2. Mild nonspecific cerebral white matter disease, which likely represents small package and bundle sorter clerk annalisa small vessel ischemic disease.
== END ==
PROVIDERS: PCP Otolaryngology; Visit Provider Otolaryngology
DX: Q01.9 Encephalocele, unspecified (principal); R90.82 White matter disease, unspecified; J34.1 Cyst and mucocele of nose and nasal sinus
CPT/HCPCS: 70553; A9577

== ENCOUNTER 2023-05-01 14:11 | Outpatient (CLI) | payer BC, SELFPAY ==
--- NOTE | ~2023-05-01 | MM_ITS ---
EXAMINATION: MM screening roel BI w willie HISTORY: Screening mammogram TECHNIQUE: Craniocaudal and mediolateral oblique 3-D tomosynthesis images were obtained and synthetic 2-D images were generated. CAD analysis was submitted and interpreted. COMPARISON: 09/19/2021, 03/10/2020, 09/04/2018, 01/02/2016 bilateral screening mammogram examinations BREAST PARENCHYMAL COMPOSITION: The breasts are heterogeneously dense, which may obscure small masses . FINDINGS: There is asymmetry in the left; diagnostic left mammogram is recommended, with ultrasound i f required. Biopsy markers are noted in the right breast; history of prior benign right breast biopsies. Otherwise no suspicious mass, architectural distortion, malignant calcification, skin thickening or r etraction or significant new or developing density of either breast is detected. IMPRESSION: 1. Left mammographic asymmetries 2. Recommend diagnostic left mammogram, with ultrasound if required BI-RADS Category 0: Incomplete: Needs additional imaging evaluation. Reviewed, dictated and finalized at location A. ERMAKER HELPER
== END 2023-05-01 14:12 | disposition home or self-care (01) ==
LOC: ANHIMG 14:14
PROVIDERS: PCP Emergency Medicine; Visit Provider Emergency Medicine
DX: Z12.31 Encounter for screening mammogram for malignant neoplasm of breast (principal); R92.8 Other abnormal and inconclusive findings on diagnostic imaging of breast
CPT/HCPCS: 77063; 77067

== ENCOUNTER 2023-06-04 11:11 | Outpatient (CLI) | payer BC, SELFPAY ==
--- NOTE | ~2023-06-04 | MMUS_ITS ---
EXAMINATION: MM diagnostic roel LT w willie, US breast LT complete HISTORY: Left mammographic asymmetry reported on May 01, 2023 screening mammogram TECHNIQUE: Additional 3-D tomosynthesis images of the left breast were performed and synthetic 2-D im ages were generated. CAD analysis was submitted and interpreted. High resolution complete left breast ultrasound examination including all 4 quadrants and subareolar area was performed. COMPARISON: May 01, 2023, 09/19/2021 lateral screening mammogram examinations FINDINGS: MAMMOGRAPHIC FINDINGS: No reproducible mass is evident on these supplemental diagnostic left mammogram images. ULTRASOUND: Small cysts are noted at 4:00 and 6:00. No suspicious mass or shadowing of the left breast is detected. IMPRESSION: 1. Benign findings 2. Routine annual mammographic screening is recommended BI-RADS Category 2: Benign finding(s). Reviewed, dictated and finalized at location A. IMPRESSION: 1. Benign findings 2. Routine annual mammographic screening is recommended BI-RADS Category 2: Benign finding(s).
== END 2023-06-04 11:12 | disposition home or self-care (01) ==
PROVIDERS: PCP Emergency Medicine; Visit Provider Emergency Medicine
DX: N64.89 Other specified disorders of breast (principal)
CPT/HCPCS: 76641; 77061; 77065; G0279

== ENCOUNTER 2023-08-20 09:49 | Outpatient (CLI) | payer BC, SELFPAY ==
[2023-08-20 12:18] LABS: Basophils Absolute Auto 0.1 K/mm3 (0.0-0.1); Eosinophils Absolute Auto 0.2 K/mm3 (0-0.3); Eosinophils Percent Auto 2.7 % (0-4.4); Hemoglobin 13.8 g/dL (12.0-15.0); Immature Granulocyte Absolute 0.02 K/mm3 (0.00-0.031); Immature Granulocyte Percent A 0.3 % (0-0.5); Lymphocytes Absolute Auto 2.19 K/mm3 (0.9-3.2); Lymphocytes Percent Auto 35.2 % (18.3-44.2); Mean Corpuscular HGB Conc 30.7 g/dl (32-36); Mean Corpuscular Hemoglobin 27.1 pg (26-34); Mean Corpuscular Volume 88.4 fl (80-100); Mean Platelet Volume 10.2 fl (7.4-10.4); Monocytes Absolute Auto 0.5 K/mm3 (0.1-0.6); Monocytes Percent Auto 7.7 % (2.6-8.5); Neutrophils Absolute Auto 3.3 K/mm3 (1.3-6.7); Neutrophils Percent Auto 53.1 % (45.5-73.1); Platelet Count Result 171 k/mm3 (150-375); Red Blood Count 5.09 M/mm3 (4.2-5.4); Red Cell Distribution Width 13.4 % (11.5-14.5); White Blood Count 6.2 K/mm3 (4.5-10.0)
[2023-08-20 12:25] LABS: Urine Cotinine NEGATIVE
== END 2023-08-20 09:50 | disposition home or self-care (01) ==
LOC: ANHSURGERY 09:54
PROVIDERS: PCP Emergency Medicine; Visit Provider Orthopaedic Surgery
DX: Z01.818 Encounter for other preprocedural examination (principal); M16.11 Unilateral primary osteoarthritis, right hip
CPT/HCPCS: 80307; 85025; 86850; 86900; 86901

== ENCOUNTER 2023-08-27 14:43 | Observation (INO) | payer BC, SELFPAY ==
[2023-08-20 10:14] VITALS: BP 143/93; PULSE 84; RESP 16; TEMP 37.3; O2SAT 97; BMI 34.8
--- NOTE | 2023-08-20 10:31 | PC.NURSE ---
Report to the Outpatient Waiting Room, entrance under the green pavilion located off [facility], at time __6:00AM on date __08/26/23 . Planned Procedure Time: __7:30AM . Time changes happen often and if your time is changed the preop area will call you the afternoon before. - You and your visitor will be asked to self-screen and do not enter if you have any COVID symptoms. - A mask is optional within the hospital at this time. Patients may have clear liquids (water, carbonated beverages, clear teas, apple juice) until 3 hours prior to surgery with a maximum of 20 ounces. - No food from midnight until time of surgery. Take the following medications with a SIP of water the morning of surgery: ___LEVOTHYROXINE DO NOT STOP ANY OF YOUR OTHER PRESCRIPTION MEDICATIONS PRIOR TO SURGERY ?EXCEPT THE FOLLOWING Medications to discontinue per physician ____HOLD ALL VITAMINS/SUPPLEMENTS 3 DAYS PRE-OP- LAST DOSE 08/22/[address] FRANKLIN. Please no make-up, nail burkinan, hairspray, perfume, deodorant, or body powder the day of surgery. No jewelry (including any body piercings) or valuables the day of surgery, leave them at home. Please take a shower or bath the night before, or the morning of, surgery with an antibacterial soap. Wear comfortable, loose fitting clothing. - Jewelry must be removed prior to entering the operating room. Rings and piercings that are not removed may be cut off. - The hospital will not accept responsibility for valuables. - Please leave all valuables, including medications, at home the day of surgery. If you are going home after surgery, a licensed delivery driver/customer service must drive you home. - NO public transportation without another adult if you receive anesthesia. - We recommend that an adult stay with you for 24 hours following discharge. - We also recommend that you do not drive, make important decision, drink alcoholic beverages, or take any drugs that were not prescribed by your health care provider for at least 24 hours after your discharge time. Follow any additional instructions given to you from your surgeon. If you or anyone in your household have experienced Covid symptoms in the past week, please notify your surgeon or the nurse liaison at the phone number below for possible testing. Telephone instructions given to ____PATIENT and asked if any additional questions and then verbalized understanding. Patient advised to call surgeon office or pre surgery nurse liaison [phone] if any additional questions.
--- NOTE | 2023-08-22 07:27 | PM.IMHP ---
H&P: HPI History of Present Illness Date/Time: 08/22/23 07:27 Chief Complaint: Patient has hip pain right. She has an arthritic RIGHT hip that this been unresponsive to conservative treatment. She would like to proceed with hip replacement surgery. Review of Systems Musculoskeletal: Musculoskeletal: Reports arthralgias, Reports joint swelling and Reports stiffness [facility] Past Medical History Medical History Abnormal cervical Papanicolaou smear Acute non-recurrent frontal sinusitis Atypical mole Bilateral hip joint arthritis Bronchitis Chronic frontal sinusitis Chronic maxillary sinusitis Chronic right shoulder pain Fatigue HTN (hypertension) Hypothyroidism (acquired) Hypothyroidism (acquired) Obesity Osteoarthritis Other chronic pain Primary insomnia Right foot pain Screening mammogram, encounter for Superior glenoid labrum lesion of right shoulder Tuberculosis screening Surgical History Surgical History H/O arthroscopy of knee left H/O LEEP (~1993) H/O: hysterectomy (05/02/17) RATLH with BSO; uterine prolapse, cervical dysplasia History of colposcopy (01/19/15) Benign History of colposcopy (01/21/17) History of foot surgery right x 2 History of gynecological procedure (11/24/11) endometrial ablation History of gynecological procedure (09/17/11) RA laproscopy w/ adhesiolysis History of nasal surgery History of partial thyroidectomy (~2002) right side History of tonsillectomy Hx of LASIK Family History Family History Sibling Diabetes mellitus Family history of seizure disorder Pancreatitis Father Family history of lung cancer, Onset Age: 59 Other Heart disease Mother COPD (chronic obstructive pulmonary disease) Emphysema/COPD Social History Social History Smoking status: Never smoker Alcohol intake: current Drinks per week: 2 Alcohol use details: 1-2 month Substance use: current Substance use type: marijuana Other substance usage details: 1 GUMMIE AT NIGHT Do You Feel Safe in your Home?: Yes Current Housing: Decline to Answer Concerned About Future Housing: Decline to Answer Difficulty Paying Gas/Electric Bills: Decline to Answer Difficulty Paying for Meds: Decline to Answer Currently Unemployed: Decline to Answer Education: Decline to Answer Difficulty w/ Childcare or Family Care: Decline to Answer Living arrangements: alone Additional living arrangements comments: Occupation/Education: occupation 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 Gender identity (if verbalized by the patient): Female Sexual Orientation (if Verbalized by the Patient): Straight or Heterosexual Spiritual care concerns: No Meds Home Medications and Allergies Home Medications Medication Instructions Recorded Confirmed Type omega 9-kra-bqs-fish oil 1,000 mg 1 cap PO DAILY 04/01/20 08/20/23 History (120 mg-180 mg) capsule (Fish Oil) fexofenadine 60 mg tablet (Yolande 60 mg PO QAM 01/30/21 08/20/23 History Allergy) losartan 50 mg tablet See Rx Instructions .Route 01/30/23 08/20/23 Rx .COMPLEX #90 tabs levothyroxine 137 mcg tablet See Rx Instructions .Route 02/06/23 08/20/23 Rx .COMPLEX #90 tabs fluticasone propionate 50 1 spray intranasal BID 02/19/23 08/20/23 History mcg/actuation nasal spray,suspension (Flonase Allergy Relief) celecoxib 200 mg capsule See Rx Instructions .Route 03/19/23 08/20/23 Rx .COMPLEX #90 caps azelastine 137 mcg (0.1 %) nasal 1 spray intranasal .qd-bid #30 mL 04/23/23 08/20/23 Rx spray aerosol tolterodine 2 mg tablet (Detrol) 2 mg PO Q12H 05/29/23 08/20/23 History cetirizine 10 mg capsule (Zyrtec) 10 mg PO HS 07/25/23 08/20/23 History cholecalcif
[2023-08-26] VITALS (17 sets, daily range): BP systolic 130–162; BP diastolic 75–97; PULSE 75–95; RESP 12–21; TEMP 36.3–37; O2SAT 88–99; BMI 34.4
[2023-08-26] MEDS: LACTATED RINGERS 1,000 ML 30 ML IV CONT ×2 (06:20→10:11)
[2023-08-26] MEDS: ACETAMINOPHEN 500 MG TABLET 1000 MG PO (06:43)
[2023-08-26] MEDS: VANCOMYCIN 1,500 MG/NS 500 ML BAG 250 MG IVPB (06:44)
--- NOTE | 2023-08-26 06:54 | WPDANESEPPF ---
Anes - Initial Pre Proc Eval Procedure: Operation Date: 08/26/23 07:30 Proposed Procedures p Right Total Hip Arthroplasty - Rupert Rico MD Date/Time: 08/26/23 06:54 Surgeon: Rupert Rico MD Pre Op Diagnosis: oa right hip Patient Data Age: 62 Gender: F Height: 1.7 m Weight: 99.75 kg Last Vital Signs Temp 37.3 C 08/20/23 10:14 Pulse 84 08/20/23 10:14 Resp 16 08/20/23 10:14 BP 143/93 H 08/20/23 10:14 Pulse Ox 97 08/20/23 10:14 O2 Del Method Room Air 08/20/23 10:14 Allergies Allergy/AdvReac Type Severity Reaction Status Date / Time No Known Allergies Allergy Verified 08/26/23 06:30 Home Medications Medication Instructions Recorded Confirmed Type omega 3-tlv-lgr-fish oil 1,000 mg 1 cap PO DAILY 04/01/20 08/26/23 History (120 mg-180 mg) capsule (Fish Oil) fexofenadine 60 mg tablet (Yolande 60 mg PO QAM 01/30/21 08/20/23 History Allergy) losartan 50 mg tablet See Rx Instructions .Route 01/30/23 08/20/23 Rx .COMPLEX #90 tabs levothyroxine 137 mcg tablet See Rx Instructions .Route 02/06/23 08/26/23 Rx .COMPLEX #90 tabs fluticasone propionate 50 1 spray intranasal BID 02/19/23 08/20/23 History mcg/actuation nasal spray,suspension (Flonase Allergy Relief) celecoxib 200 mg capsule See Rx Instructions .Route 03/19/23 08/26/23 Rx .COMPLEX #90 caps azelastine 137 mcg (0.1 %) nasal 1 spray intranasal .qd-bid #30 mL 04/23/23 08/20/23 Rx spray aerosol tolterodine 2 mg tablet (Detrol) 2 mg PO Q12H 05/29/23 08/20/23 History cetirizine 10 mg capsule (Zyrtec) 10 mg PO HS 07/25/23 08/20/23 History cholecalciferol (vitamin D3) 50 100 mcg PO DAILY #180 caps 08/13/23 08/26/23 Rx mcg (2,000 unit) capsule rivaroxaban 10 mg tablet (Xarelto) 10 mg PO DAILY PE prophylaxis s/p 08/23/23 Rx joint replacement 21 days #21 tabs Patient hx anesthesia problems: none Family hx anesthesia problems: post op nausea/vomiting Results Review: All pre-operative results and documents have been reviewed as part of the pre-operative evaluation. [facility] Past Medical History Medical History Abnormal cervical Papanicolaou smear Acute non-recurrent frontal sinusitis Atypical mole Bilateral hip joint arthritis Bronchitis Chronic frontal sinusitis Chronic maxillary sinusitis Chronic right shoulder pain Fatigue HTN (hypertension) Hypothyroidism (acquired) Hypothyroidism (acquired) Obesity Osteoarthritis Other chronic pain Primary insomnia Right foot pain Screening mammogram, encounter for Superior glenoid labrum lesion of right shoulder Tuberculosis screening Surgical History Surgical History H/O arthroscopy of knee left H/O LEEP (~1993) H/O: hysterectomy (05/02/17) RATLH with BSO; uterine prolapse, cervical dysplasia History of colposcopy (01/19/15) Benign History of colposcopy (01/21/17) History of foot surgery right x 2 History of gynecological procedure (11/24/11) endometrial ablation History of gynecological procedure (09/17/11) RA laproscopy w/ adhesiolysis History of nasal surgery History of partial thyroidectomy (~2002) right side History of tonsillectomy Hx of LASIK Family History Family History Sibling Diabetes mellitus Family history of seizure disorder Pancreatitis Father Family history of lung cancer, Onset Age: 59 Other Heart disease Mother COPD (chronic obstructive pulmonary disease) Emphysema/COPD Social History Social History Smoking status: Never smoker Alcohol intake: current Drinks per week: 2 Alcohol use details: 1-2 month Substance use: current Substance use type: marijuana Other substance usage details: 1 GUMMIE AT NIGHT Do You Feel Safe in your Home?:
[2023-08-26] MEDS: TRANEXAMIC ACID 1,000MG/ISO100 1,000 MG/100 ML BAG 200 MG IVPB (06:59)
--- NOTE | 2023-08-26 06:59 | WPDHPUPDATE1 ---
History and Physical Update Update Date/Time: 08/26/23 06:59 History and Physical has been reviewed, including an updated exam of the patient. There are NO changes in the patient's condition. Risks, benefits, and alternatives have been discussed and questions answered. Patient agrees to proceed with procedure.
[2023-08-26] MEDS: ceFAZolin 2 GM/D5W 50 ML 2 GM/50 ML BAG IVPB ×2 (07:29→16:46)
[2023-08-26] MEDS: ceFAZolin SODIUM 1 GM VIAL 2 GM IV PUSH (09:18)
--- NOTE | 2023-08-26 09:33 | P.OP_ITS ---
Procedure Note - Detailed Date of Procedure 08/26/23 Pre-op Diagnosis Osteoarthritis right hip Post-op Diagnosis Same Procedure Performed RIGHT total hip arthroplasty Surgeon Rupert Rico MD Customer Support Agent Eris Ng Anesthesia General Indications Pain and Arthritis Description of Procedure Patient was brought to the operating room #7, and an anesthetic was administered. The patient was placed with the RIGHT side up and sterilely prepped and draped in the usual manner. A ongitudinal incision was performed. Diissection was carried down to the fascia. A Hardinge type approach was used and the femoral head was dislocated anteriorly. The Femoral head was removed a finger breath above the lesser trochanter. The acetabulum was serially reamed to accept a 52mm Acetabular component. This was impacted into place and secured with 2 25mm screws. A high wall liner was placed. The femur was reamed and broached to accept a #7 component which was impacted into place. A miu 3 head and neck were placed and the hip was put through full range of motion. The hip was noted to be stable. The wounds were then closed in a layered fashion using #5 ethibond, 2 vicryl, 2-0 vicryl and mary jane. Patient left the operating room in satisfactory condition. Her bone was estremely hard. Implants Biomet Taper Lock stem Purnima Multihole Cup Estimated Blood Loss 600 Drains No Packing No Pathology None sent Complications No immediate complications Condition Stable Disposition PACU [facility] Billing Surgery - Charge Forward: Surgery Billing ([id number] Right Total Hip)
[2023-08-26] MEDS: fentaNYL CITRATE INJ (*CRX) 100 MCG/2 ML VIAL 25 MCG IV PUSH ×7 (10:35→11:15)
--- NOTE | 2023-08-26 11:27 | ADMGEN ---
This patient, Manda Chavez, was admitted to Medical Room 251-01. Patient/family oriented to hospital policies and general routines including ID bracelet, bed and alarms, visiting hours, pain management, procedures, bathroom and other care routines, personal items, smoking policy, room service/diet, and visiting hours. Information on how to activate the Rapid Response Team has been discussed. Patient/Family are encouraged to report perceived risks to care and to ask questions if they do not understand what they are told or what they should do.
--- NOTE | 2023-08-26 13:07 | WPDCN ---
Assessment and Plan Assessment and plan (1) Osteoarthritis of right hip: Code(s): M16.11 - Unilateral primary osteoarthritis, right hip Status: Acute Assessment and Plan: Postoperative day 0 status post right total hip arthroplasty. Wound care, pain control, and DVT prophylaxis deferred to Dr. Rico. Monitor hemoglobin and hematocrit. (2) Hypertension: Code(s): I10 - Essential (primary) hypertension Status: Acute Assessment and Plan: Blood pressures were reviewed and they have been stable postoperatively. Continue losartan 50 mg daily and monitor closely. (3) Hypothyroidism: Code(s): E03.9 - Hypothyroidism, unspecified Status: Acute Assessment and Plan: Continue levothyroxine. Recent TSH was within normal limits. Plan Thank you for allowing us to participate in this patient's care. Please do not hesitate to contact us with any questions. HPI Data of Consult Date/Time: 08/26/23 13:00 Requesting Physician: Rupert Rico MD Consult Narrative Reason for consult: Medical management. Narrative: This is a 62-year-old female with osteoarthritis, hypertension, and hypothyroidism whom the hospitalist service has been consulted for help managing her medical conditions postoperatively. She presented today for elective right hip arthroplasty due to ongoing pain despite conservative outpatient treatment. Her surgery was performed under general anesthesia with no immediate complications documented and an estimated blood loss of 600 mL. She is having difficulties with severe ?Charley horses? in the right hip. She has been up with a walker with therapy and tells me that she had a hard time due to the pain. She is worried about being discharged home as she lives alone in a 3 story town home. Other than that she is doing okay and she denies fever, chills, sweats, chest pain, shortness a breath, nausea, and vomiting. She also denies paresthesias, skin color, and temperature changes distal to the surgical site. Regarding her chronic medical conditions, they were reportedly well controlled on medication. She denies personal history of venous thromboembolism. Review of Systems Review of Systems: 12 systems were reviewed and are negative except for as per HPI. [facility] Past Medical History Medical History (Updated 08/26/23 @ 13:14 by Brisa Ashraf PA-C) Hypertension Hypothyroidism Osteoarthritis Surgical History Surgical History (Updated 08/26/23 @ 13:14 by Brisa Ashraf PA-C) History of arthroscopy of left knee History of colposcopy (01/21/17) History of endometrial ablation (11/24/11) History of foot surgery right x 2 History of laparoscopy (09/17/11) With adhesiolysis. History of laser assisted in situ keratomileusis History of loop electrical excision procedure (LEEP) (1993) History of nasal surgery History of partial thyroidectomy (2002) Right History of tonsillectomy History of total abdominal hysterectomy and bilateral salpingo-oophorectomy (05/02/17) For uterine prolapse and cervical dysplasia. Family History Family History Sibling Diabetes mellitus Family history of seizure disorder Pancreatitis Father Family history of lung cancer, Onset Age: 59 Other Heart disease Mother COPD (chronic obstructive pulmonary disease) Emphysema/COPD Social History Social History (Updated 08/26/23 @ 13:14 by Brisa Ashraf PA-C) Social History: Surrogate medical decision maker: Chica Gabrielle, sibling. Code status: Full code. Smoking status: Never smoker Alcohol intake: current Drinks per week: 2 Alcohol use details: 1-2 month Substance use: current Substance use type: marijuana Other substance usage details: 1 GUMMIE AT NIGHT Do You Feel Safe in your Home?: Yes Lack of Transportation: No Lack of Food: Never True Current Housing:
[2023-08-26] MEDS: DEXTROSE 5%/0.45% SOD CHL 1,000 ML 80 ML IV CONT (14:18)
[2023-08-26] MEDS: HYDROcodone/acetaminophen (*CRX) 7.5-325 MG TABLET 1 TAB PO ×2 (14:18→20:49)
[2023-08-26] MEDS: LOSARTAN POTASSIUM 50 MG TABLET BY MOUTH (14:18)
[2023-08-26] MEDS: RIVAROXABAN 10 MG TABLET PO (16:51)
[2023-08-26] MEDS: FAMOTIDINE 20 MG TABLET PO (20:50)
[2023-08-26] MEDS: FLUTICASONE PROPIONATE 0.05% NA SPR 16 GM BTL (*BKC) 1 SPRAY NASAL (20:50)
[2023-08-26] MEDS: TOLTERODINE TARTRATE 2 MG TABLET PO (20:50)
[2023-08-26] MEDS: AZELASTINE HCL NASAL 0.1% 137 MCG/SPR 30 ML BTL 1 SPRAY NASAL (20:50)
[2023-08-27] VITALS (10 sets, daily range): BP systolic 132–148; BP diastolic 69–80; PULSE 87–108; RESP 18–20; TEMP 36.2–37; O2SAT 95–100
--- NOTE | ~2023-08-27 | XR_ITS ---
EXAMINATION: XR surgery orthopedic DATE: 08/26/2023 09:37 INDICATION: Right total hip arthroplasty. TECHNIQUE: 2 intraoperative views of the pelvis were obtained. COMPARISON: Right hip radiographs 05/01/2023 FINDINGS: The first image demonstrates a right acetabular cup in expected position and a broach in pr oximal right femur. The second image demonstrates a total right hip arthroplasty in near-anatomic ali gnment. No fracture. IMPRESSION: 1. Total right hip arthroplasty in near-anatomic alignment. Reviewed, dictated and finalized at location A.
[2023-08-27] MEDS: ceFAZolin 2 GM/D5W 50 ML 2 GM/50 ML BAG IVPB ×2 (00:55→08:44)
[2023-08-27] MEDS: HYDROcodone/acetaminophen (*CRX) 7.5-325 MG TABLET 1 TAB PO ×3 (01:49→13:27)
[2023-08-27] MEDS: HYDROmorphone HCL INJ (*CRX) 1 MG/ML SYR IV PUSH (04:21)
[2023-08-27 05:55] LABS: Basophils Absolute Auto 0.1 K/mm3 (0.0-0.1); Basophils Percent Auto 0.4 % (0.2-1.2); Hematocrit 36.9 % (37.0-47.0); Hemoglobin 11.7 g/dL (12.0-15.0); Immature Granulocyte Absolute 0.04 K/mm3 (0.00-0.031); Immature Granulocyte Percent A 0.3 % (0-0.5); Lymphocytes Absolute Auto 1.48 K/mm3 (0.9-3.2); Lymphocytes Percent Auto 12.9 % (18.3-44.2); Mean Corpuscular HGB Conc 31.7 g/dl (32-36); Mean Corpuscular Hemoglobin 27.1 pg (26-34); Mean Corpuscular Volume 85.4 fl (80-100); Mean Platelet Volume 9.2 fl (7.4-10.4); Monocytes Absolute Auto 1.2 K/mm3 (0.1-0.6); Monocytes Percent Auto 10.5 % (2.6-8.5); Neutrophils Absolute Auto 8.7 K/mm3 (1.3-6.7); Neutrophils Percent Auto 75.9 % (45.5-73.1); Platelet Count Result 223 k/mm3 (150-375); Red Blood Count 4.32 M/mm3 (4.2-5.4); Red Cell Distribution Width 13.4 % (11.5-14.5); White Blood Count 11.5 K/mm3 (4.5-10.0)
[2023-08-27 06:06] LABS: Anion Gap 5 mmol/L (4-12); Blood Urea Nitrogen 14 mg/dL (7-17); Calcium 8.5 mg/dL (8.4-10.2); Carbon Dioxide 26 mmol/L (22-30); Chloride 106 mmol/L (98-107); Estimated CRCL calculation 90 ml/min; Estimated Glomerular Filt Rate > 60; Glucose 125 mg/dL (65-110); Potassium 3.8 mmol/L (3.4-5.0); Sodium 137 mmol/L (137-145)
--- NOTE | 2023-08-27 06:36 | PM.PNORT ---
Progress Note: A&P Assessment and Plan (1) Osteoarthritis of right hip: Code(s): M16.11 - Unilateral primary osteoarthritis, right hip Status: Acute Assessment and Plan: Patient is S/P RIGHT MOMO for osteoarthritis. Doing well. Will mobilize today. If ambulatory will send home. (2) History of right hip replacement: Code(s): Z96.641 - Presence of right artificial hip joint Status: Acute Subjective Subjective Date/Time Seen: 08/27/23 06:36 Post Op day: 1 Principal diagnosis: RIGHT MOMO for osteoarthritis Review of Systems Musculoskeletal: Musculoskeletal: Reports arthralgias, Reports joint swelling, Reports limited range of motion and Reports loss of height Exam Narrative: NVI. Dressing intact. Wiggles toes. Objective Data Vital Signs Vital Signs: Vital Signs - 24 hr 08/26/23 10:11 08/26/23 10:15 08/26/23 10:30 Temperature 97.9 F Pulse Rate 95 89 93 Respiratory Rate 18 18 16 Blood Pressure 145/95 H 139/89 138/97 H Pulse Oximetry 96 96 99 Oxygen Delivery Simple Face Mask Simple Face Mask Room Air Oxygen Flow Rate 8 8 08/26/23 10:39 08/26/23 10:42 08/26/23 10:45 Temperature Pulse Rate 79 Respiratory Rate 19 Blood Pressure 133/75 Pulse Oximetry 88 L 99 97 Oxygen Delivery Nasal Cannula Nasal Cannula Nasal Cannula Oxygen Flow Rate 3 2 2 08/26/23 11:00 08/26/23 11:09 08/26/23 12:55 Temperature Pulse Rate 91 93 Respiratory Rate 16 18 Blood Pressure 148/95 H Pulse Oximetry 97 92 Oxygen Delivery Nasal Cannula Nasal Cannula Room Air Oxygen Flow Rate 2 2 08/26/23 11:40 08/26/23 11:55 08/26/23 12:25 Temperature 97.6 F 97.8 F 97.7 F Pulse Rate 76 80 76 Respiratory Rate 20 20 21 H Blood Pressure 130/77 135/83 139/79 Pulse Oximetry 98 97 98 Oxygen Delivery Oxygen Flow Rate 08/26/23 13:25 08/26/23 16:00 08/26/23 12:00 Temperature 97.4 F L Pulse Rate 75 75 78 Respiratory Rate 12 18 Blood Pressure 149/88 H Pulse Oximetry 98 97 Oxygen Delivery Nasal Cannula Oxygen Flow Rate 2 08/26/23 17:00 08/26/23 20:05 08/26/23 20:00 Temperature 98.6 F 97.3 F L Pulse Rate 76 78 76 Respiratory Rate 20 20 20 Blood Pressure 159/89 H 162/86 H Pulse Oximetry 98 98 97 Oxygen Delivery Room Air Oxygen Flow Rate 08/27/23 00:04 08/26/23 20:00 08/27/23 00:00 Temperature 97.5 F L Pulse Rate 90 84 87 Respiratory Rate 20 Blood Pressure 142/77 H Pulse Oximetry 97 Oxygen Delivery Oxygen Flow Rate 08/27/23 04:38 08/27/23 04:00 Temperature 97.1 F L Pulse Rate 102 H 95 Respiratory Rate 18 Blood Pressure 134/69 Pulse Oximetry 95 Oxygen Delivery Oxygen Flow Rate Intake/Output Intake/Output: Intake & Output 08/24/23 08/25/23 08/26/23 08/27/23 23:59 23:59 23:59 23:59 Intake Total 1450 440 Balance 1450 440 Meds/Results Medications: Active Medications Generic Name Dose Route Start Last Admin Trade Name Freq PRN Reason Stop Dose Admin Hydrocodone Bitart/Acetaminophen 1 tab 08/26/23 11:15 Hydrocodone/Acetaminophen (*Crx) 5-325 Mg Tablet PO Q4H PRN Pain Rated 4-6 Hydrocodone Bitart/Acetaminophen 1 tab 08/26/23 11:15 08/27/23 01:49 Hydrocodone/Acetaminophen (*Crx) 7.5-325 Mg Tablet PO 1 tab Q4H PRN Administration Pain Rated 7-10 Azelastine HCl 1 spray 08/26/23 21:00 08/26/23 20:50 Azelastine Hcl Nasal 0.1% 137 Mcg/Spr 30 Ml Btl NASAL 1 spray Q12H FERMIN Administration Celecoxib 200 mg 08/27/23 09:00 Celecoxib 200 Mg Capsule PO DAILY FERMIN Famotidine 20 mg 08/26/23 21:00 08/26/23 20:50 Famotidine 20 Mg Tablet PO 20 mg Q12HR FERMIN Administration Fluticasone Propionate 1 spray 08/26/23 21:00 08/26/23 20:50 Fluticasone Propionate 0.05% Na Spr 16 Gm Btl (*Bkc) NASAL 1 spray Q12H FERMIN Administration Hydromorphone HCl 1 mg 08/26/23 11:15 08/27/23 04:21 Hydromorphone Hcl Inj (*Crx) 1 Mg/Ml Syr IV PUSH
--- NOTE | 2023-08-27 07:35 | PM.IMPN ---
Progress Note: A&P Assessment and Plan (1) Osteoarthritis of right hip: Code(s): M16.11 - Unilateral primary osteoarthritis, right hip Status: Acute Assessment and Plan: S/p right total hip arthroplasty on 08/[address] Rico - Wound care, pain control, and DVT prophylaxis deferred to Dr. Rico. - Hemoglobin and hematocrit remain stable, continue to monitor (2) Hypertension: Code(s): I10 - Essential (primary) hypertension Status: Acute Assessment and Plan: Blood pressures were reviewed and continue to be stable postoperatively. - Continue losartan 50 mg daily and monitor closely. (3) Hypothyroidism: Code(s): E03.9 - Hypothyroidism, unspecified Status: Acute Assessment and Plan: TSH 08/09/23: 1.78 - Continue levothyroxine 137 mcg daily Plan Thank you for allowing us to participate in this patient's care. Please do not hesitate to contact us with any questions. Time Spent With Patient Time with patient: 25 - 35 minutes Subjective Date/time seen: 08/27/23 07:35 Interval history: 62-year-old female with osteoarthritis, hypertension, and hypothyroidism whom the hospitalist service has been consulted for help managing her medical conditions postoperatively after an elective right total hip arthroplasty on 08/[address] Rico. Patient is pleasant lying in bed. She states that after receiving the IV ibuprofen and having the kosta hose placed, her pain has significantly improved. She notes that the pain was not in the hip, rather in the thigh and radiated to the foot. She denies pain, tingling/numbness at this time. Patient denies chest pain, shortness of breath, nausea/vomiting and changes in bowel/bladder. After my assessment patient was getting up to work with OT. Review of Systems Review of Systems: All systems reviewed & are unremarkable except as noted in HPI and below Exam Narrative: AF HR 105 RR 20 SpO2 98 BP 132/77 General: female in no acute respiratory distress who is nontoxic appearing, lying semi recumbent in bed. HEENT: Normocephalic. Atraumatic. Pupils equal round reactive to light. Extraocular movement intact. Sclera clear and anicteric. No facial asymmetry. Chest: Lungs are clear to auscultation bilaterally okay. No wheezes or crackles. CV: Heart was regular rate and rhythm. S1-S2. No murmurs, gallops, or rubs. Abd: Abdomen was soft. Nontender. Nondistended. Positive bowel sounds. No organomegaly or masses. Ext: No clubbing, cyanosis, or edema. SCD and thigh high kosta hose in place. 2+ DP pulses bilaterally. Neuro: Patient is alert and oriented x4. Cranial nerves 2-12 are intact. Speech is clear. Psych: Normal mood and affect. Patient is pleasant and cooperative. Skin: Warm and dry. No rashes noted. Objective Data Vital Signs Vital Signs: Vital Signs - 24 hr 08/26/23 10:11 08/26/23 10:15 08/26/23 10:30 Temperature 97.9 F Pulse Rate 95 89 93 Respiratory Rate 18 18 16 Blood Pressure 145/95 H 139/89 138/97 H Pulse Oximetry 96 96 99 Oxygen Delivery Simple Face Mask Simple Face Mask Room Air Oxygen Flow Rate 8 8 08/26/23 10:39 08/26/23 10:42 08/26/23 10:45 Temperature Pulse Rate 79 Respiratory Rate 19 Blood Pressure 133/75 Pulse Oximetry 88 L 99 97 Oxygen Delivery Nasal Cannula Nasal Cannula Nasal Cannula Oxygen Flow Rate 3 2 2 08/26/23 11:00 08/26/23 11:09 08/26/23 12:55 Temperature Pulse Rate 91 93 Respiratory Rate 16 18 Blood Pressure 148/95 H Pulse Oximetry 97 92 Oxygen Delivery Nasal Cannula Nasal Cannula Room Air Oxygen Flow Rate 2 2 08/26/23 11:40 08/26/23 11:55 08/26/23 12:25 Temperature 97.6 F 97.8 F 97.7 F Pulse Rate 76 80 76 Respiratory Rate 20 20 21 H Blood Pressure 130/77 135/83 139/79 Pulse Oximetry 98 97 98 Oxygen Delivery Oxygen Flow Rate 08/26/23 13:25 08/26/23 16:00 08/26/23 12:00 Temperature 97.4 F L Pulse Rate 75 75 78 Respiratory Ra
[2023-08-27] MEDS: CELECOXIB 200 MG CAPSULE PO (08:44)
[2023-08-27] MEDS: LORATADINE 10 MG TABLET PO (08:44)
--- NOTE | 2023-08-27 08:44 | WPDANESPN ---
Anes - Prog Note Post-Op Date/Time: 08/27/23 08:44 Cardiovascular status: normal Respiratory status: normal Airway patency: baseline Mental status: baseline Post-Op hydration status: normal Vital Signs: Last Vital Signs Temp 36.2 C L 08/27/23 04:38 Pulse 102 H 08/27/23 04:38 Resp 18 08/27/23 04:38 BP 134/69 08/27/23 04:38 Pulse Ox 95 08/27/23 04:38 O2 Del Method Room Air 08/26/23 20:00 O2 Flow Rate 2 08/26/23 12:00 Pain Score (VAS): 09/01 I/O: Intake & Output 08/26/23 08/27/23 08/27/23 23:59 07:59 15:59 Intake Total 1080 440 Balance 1080 440 Laboratory Tests 08/27/23 05:27 08/27/23 05:27 08/27/23 05:27 WBC 11.5 H RBC 4.32 Hgb 11.7 L Hct 36.9 L MCV 85.4 MCH 27.1 MCHC 31.7 L RDW 13.4 Plt Count 223 MPV 9.2 Immature Gran % (Auto) 0.3 Neut % (Auto) 75.9 H Lymph % (Auto) 12.9 L [place] % (Auto) 10.5 H Eos % (Auto) 0.0 Baso % (Auto) 0.4 Lymph # (Auto) 1.48 [place] # (Auto) 1.2 H Eos # (Auto) 0.0 Baso # (Auto) 0.1 Abs Immat Gran (auto) 0.04 H Absolute Neuts (auto) 8.7 H Absolute Nucleated RBC 0.000 Nucleated RBC % 0.0 Sodium 137 Potassium 3.8 Chloride 106 Carbon Dioxide 26 Anion Gap 5 BUN 14 D Creatinine 0.70 Estim Creat Clear Calc 90 Estimated GFR > 60 Glucose 125 H Calcium 8.5 Magnesium 2.0 Post-procedural complaints: none Patient Feedback: Patient satisfied with anesthetic care.
[2023-08-27] MEDS: FAMOTIDINE 20 MG TABLET PO ×2 (08:46→20:11)
[2023-08-27] MEDS: SENNA/DOCUSATE SODIUM TABLET 2 TAB PO (08:46)
[2023-08-27] MEDS: LOSARTAN POTASSIUM 50 MG TABLET BY MOUTH (08:46)
[2023-08-27] MEDS: TOLTERODINE TARTRATE 2 MG TABLET PO ×2 (08:46→20:12)
[2023-08-27] MEDS: FLUTICASONE PROPIONATE 0.05% NA SPR 16 GM BTL (*BKC) 1 SPRAY NASAL ×2 (08:49→20:14)
[2023-08-27] MEDS: AZELASTINE HCL NASAL 0.1% 137 MCG/SPR 30 ML BTL 1 SPRAY NASAL ×2 (08:49→20:14)
[2023-08-27] MEDS: IBUPROFEN IV 800 MG/200 ML 800 MG/200 ML BAG 400 MG IVPB ×2 (11:02→21:36)
--- NOTE | 2023-08-27 11:28 | PCOTNOTE ---
Attempted 2 times this A.M. to see Patient for OT treatment session. Patient had just finished PT and could not tolerate at that time. Therapist check back at a alter time and still declined, stating having increased pain and currently getting IV pain medication and just got back into bed. Patient asked therapist to come back in the afternoon.
[2023-08-27] MEDS: RIVAROXABAN 10 MG TABLET PO (16:26)
[2023-08-27] MEDS: CYCLOBENZAPRINE HCL 10 MG TABLET PO (16:26)
[2023-08-27] MEDS: traMADol HCL (*CRX) 50 MG TABLET PO (20:12)
[2023-08-28] VITALS: PULSE 92
[2023-08-28] MEDS: CYCLOBENZAPRINE HCL 10 MG TABLET PO ×2 (00:55→09:01)
[2023-08-28 04:00] VITALS: PULSE 96
[2023-08-28 04:32] VITALS: BP 147/84; PULSE 101; RESP 20; TEMP 36.6; O2SAT 96
--- NOTE | 2023-08-28 07:42 | PM.IMPN ---
Progress Note: A&P Assessment and Plan (1) Osteoarthritis of right hip: Code(s): M16.11 - Unilateral primary osteoarthritis, right hip Status: Acute Assessment and Plan: S/p right total hip arthroplasty on 08/[address] Rico - Wound care, pain control, and DVT prophylaxis deferred to Dr. Rico. -pt is on xarelto - Hemoglobin and hematocrit remain stable, continue to monitor (2) Hypertension: Code(s): I10 - Essential (primary) hypertension Status: Acute Assessment and Plan: Blood pressures were reviewed and continue to be stable postoperatively. - Continue losartan 50 mg daily - monitor (3) Hypothyroidism: Code(s): E03.9 - Hypothyroidism, unspecified Status: Acute Assessment and Plan: TSH 08/09/23: 1.78 - Continue levothyroxine 137 mcg daily Plan Thank you for allowing us to participate in this patient's care. Please do not hesitate to contact us with any questions. Time Spent With Patient Time with patient: 25 - 35 minutes Subjective Date/time seen: 08/28/23 07:42 Interval history: 62-year-old female with osteoarthritis, hypertension, and hypothyroidism whom the hospitalist service has been consulted for help managing her medical conditions postoperatively after an elective right total hip arthroplasty on 08/[address] Rico. Hospitalist group is consulted to follow pt for chronic disease management Her pain has significantly improved with IV ibuprophen and KOSTA hose. She notes that the pain was not in the hip, rather in the thigh and radiated to the foot. She denies pain, tingling/numbness at this time. Patient denies chest pain, shortness of breath, nausea/vomiting and changes in bowel/bladder. Working with PT/OT she reports that she might be going home today- she is stable from medical stand point- will sign off. Review of Systems Review of Systems: 12 systems were reviewed and are negative except for as per HPI. All systems reviewed & are unremarkable except as noted in HPI and below Exam Narrative: AF HR 105 RR 20 SpO2 98 BP 132/77 General: female in no acute respiratory distress who is nontoxic appearing, lying semi recumbent in bed. HEENT: Normocephalic. Atraumatic. Pupils equal round reactive to light. Extraocular movement intact. Sclera clear and anicteric. No facial asymmetry. Chest: Lungs are clear to auscultation bilaterally okay. No wheezes or crackles. CV: Heart was regular rate and rhythm. S1-S2. No murmurs, gallops, or rubs. Abd: Abdomen was soft. Nontender. Nondistended. Positive bowel sounds. No organomegaly or masses. Ext: No clubbing, cyanosis, or edema. SCD and thigh high kosta hose in place. 2+ DP pulses bilaterally. Neuro: Patient is alert and oriented x4. Cranial nerves 2-12 are intact. Speech is clear. Psych: Normal mood and affect. Patient is pleasant and cooperative. Skin: Warm and dry. No rashes noted. Objective Data Vital Signs Vital Signs: Vital Signs - 24 hr 08/27/23 09:00 08/27/23 08:40 08/27/23 14:00 Temperature 98.1 F 98.6 F Pulse Rate 105 H 98 Respiratory Rate 20 18 Blood Pressure 132/77 148/80 H Pulse Oximetry 98 96 Oxygen Delivery Room Air 08/27/23 08:00 08/27/23 12:00 08/27/23 16:00 Temperature Pulse Rate 108 H 103 H 93 Respiratory Rate Blood Pressure Pulse Oximetry Oxygen Delivery 08/27/23 19:42 08/27/23 20:00 08/28/23 00:00 Temperature 98.5 F Pulse Rate 96 92 Respiratory Rate 20 Blood Pressure 140/80 Pulse Oximetry 100 Oxygen Delivery Room Air 08/28/23 04:00 08/28/23 04:32 Temperature 97.9 F Pulse Rate 96 101 H Respiratory Rate 20 Blood Pressure 147/84 H Pulse Oximetry 96 Oxygen Delivery Intake/Output Intake/Output: Intake & Output 08/25/23 08/26/23 08/27/23 08/28/23 23:59 23:59 23:59 23:59 Intake Total 1450 2280 390 Balance 1450 2280 390 Meds/Results Medications: Active Medications Gen
[2023-08-28] MEDS: LEVOTHYROXINE SODIUM 112 MCG TABLET PO (08:45)
[2023-08-28] MEDS: HYDROcodone/acetaminophen (*CRX) 5-325 MG TABLET 1 TAB PO (08:45)
[2023-08-28] MEDS: SENNA/DOCUSATE SODIUM TABLET 2 TAB PO ×2 (08:45→16:46)
[2023-08-28] MEDS: FLUTICASONE PROPIONATE 0.05% NA SPR 16 GM BTL (*BKC) 1 SPRAY NASAL (08:45)
[2023-08-28] MEDS: FAMOTIDINE 20 MG TABLET PO (08:46)
[2023-08-28] MEDS: TOLTERODINE TARTRATE 2 MG TABLET PO (08:47)
[2023-08-28] MEDS: LEVOTHYROXINE SODIUM 25 MCG TABLET PO (08:47)
[2023-08-28] MEDS: LORATADINE 10 MG TABLET PO (08:47)
[2023-08-28] MEDS: LOSARTAN POTASSIUM 50 MG TABLET BY MOUTH (08:47)
[2023-08-28] MEDS: CELECOXIB 200 MG CAPSULE PO (08:47)
[2023-08-28] MEDS: AZELASTINE HCL NASAL 0.1% 137 MCG/SPR 30 ML BTL 1 SPRAY NASAL (09:02)
--- NOTE | 2023-08-28 10:39 | P.DS_ITS ---
DS: Admitting Diagnosis Discharge Date 03/27/23 Admitting Diagnosis Osteoarthritis Right Hio DS: Discharge Diagnosis Discharge Diagnosis (1) History of right hip replacement: Code(s): Z96.641 - Presence of right artificial hip joint Status: Acute Assessment and Plan: S/P Right MOMO. Progressing slowly. NVI. Home with home help DS: Summary Hospital Course Hospital Course: Patient underwent Right Total Hip Arthroplasty for Osteoarthritis. Progressing slowly. Home today Status at Discharge Functional status at discharge: uses cane/walker Time Spent with Patient Time attestation: Total time spent providing and/or coordinating discharge services: Exam Narrative: Dressing intact. NVI. Wiggles toes Eyes: General: appearance normal, both eyes and all related structures Neck: Neck: supple Resp: Effort & Inspection: normal respiratory effort Cardio: Rate: regular rate Rhythm: regular rhythm Discharge Plan Discharge Attending physician on discharge: Rupert Rico Consulting providers: Joel Lim; Edyta Meier Discharging Clinician: Rupert Rico Anticipated Discharge Date/Time: 08/28/23 16:43 Patient Disposition: Home Health Service Activity: no straining, no driving and follow weight bearing status Diet: regular Discharge Instructions: Care Coordination: Patient to have [facility] for PT/OT eval and treat, and senior living. Their phone number is [phone] if you have any questions. They will contact you to schedule their first visit. Patient Instructions: Antibiotic Form Stand Alone Forms: General Discharge Information Follow-up/Referrals: Rupert Rico MD [Physician] - Discharge Medications: New hydrocodone-acetaminophen 7.5-325 mg tablet 1 tablet PO Q4H PRN (Reason: pain) Qty: 40 0RF doxycycline hyclate 100 mg tablet 100 mg PO DAILY Qty: 10 0RF Continued fexofenadine [Yolande Allergy] 60 mg tablet 60 mg PO QAM tolterodine [Detrol] 2 mg tablet 2 mg PO Q12H Zyrtec 10 mg capsule 10 mg PO HS fluticasone propionate [Flonase Allergy Relief] 50 mcg/actuation spray,suspension 1 spray intranasal BID Rx Instructions: administer into each nostril omega 1-yil-ryn-fish oil [Fish Oil] 1,000 mg (120 mg-180 mg) Capsule 1 cap PO DAILY levothyroxine 137 mcg Tablet 137 mcg PO DAILY losartan 50 mg tablet See Rx Instructions .ROUTE .COMPLEX Qty: 90 2RF Dose Instruction: TAKE 1 TABLET BY MOUTH DAILY Rx Instructions: TAKE 1 TABLET BY MOUTH DAILY IN AM celecoxib 200 mg capsule See Rx Instructions .ROUTE .COMPLEX Qty: 90 2RF Dose Instruction: TAKE 1 CAPSULE BY MOUTH DAILY Rx Instructions: TAKE 1 CAPSULE BY MOUTH DAILY azelastine 137 mcg (0.1 %) aerosol,spray 1 spray intranasal .qd-bid Qty: 30 0RF Rx Instructions: administer into each nostril. Aim back/up/out cholecalciferol (vitamin D3) 50 mcg (2,000 unit) capsule 100 mcg PO DAILY Qty: 180 2RF Xarelto 10 mg tablet 10 mg PO DAILY 21 Days Qty: 21 0RF Rx Instructions: take 1 tab daily x 21 days beginning day AFTER surgery Date of admission: 08/27/23 14:43 Primary Care Provider: Lucas Thomas Admitting Provider: Rupert Rico Attending physician on admission: Rupert Rico Condition: Stable
[2023-08-28] MEDS: HYDROcodone/acetaminophen (*CRX) 7.5-325 MG TABLET 1 TAB PO (12:46)
[2023-08-28 13:55] VITALS: BP 133/72; PULSE 102; RESP 16; TEMP 36.8; O2SAT 99
[2023-08-28] MEDS: RIVAROXABAN 10 MG TABLET PO (16:46)
== END 2023-08-28 17:00 | disposition home health service (06) ==
LOC: ANHSURGERY 14:48 → ANH2MED 14:48
PROVIDERS: Admitting Provider Orthopaedic Surgery; PCP Emergency Medicine; Visit Provider Orthopaedic Surgery
PROC: (CPT 27130; principal; 2023-08-26 07:30)
DX: M16.11 Unilateral primary osteoarthritis, right hip (principal); I10 Essential (primary) hypertension; E03.9 Hypothyroidism, unspecified; E66.9 Obesity, unspecified; Z68.37 Body mass index [BMI] 37.0-37.9, adult; F12.90 Cannabis use, unspecified, uncomplicated
CPT/HCPCS: 27130; 36415; 80048; 83735; 85025; 97110; 97116; 97161; 97165; 97530; 97535; 99199; A9270; C1776; G0378; J0690; J1100; J1170; J1741; J2405; J2704; J3010; J3370; J7120

== ENCOUNTER 2024-06-24 07:47 | Outpatient (CLI) | payer BC, SELFPAY ==
--- OUTSIDE RECORDS SUMMARY | 2024-06-24 07:55 | XMS_ITS | Clinical Summary ---
Author Organization [facility] Address [address] [place] [id number] Care Team Providers Care Telecom Manager Name Role Phone Lucas Thomas MD Primary Care Provide r Allergies Active Allergy Reactions Criticality Noted Date Comments Codeine Rash Medium 07/19/2013 Rash Penicillin G Rash Medium 07/19/2013 Rash- Tolerated recently Medications azelastine (ASTELIN) 137 mcg (0.1 %) nasal sprayIndications: Seasonal Allergic Rhinitis Administer 1 spray into each nostril 2 (two) times a day 4 Active celecoxib (CeleBREX) 200 mg capsuleIndication s:Osteoarthritis Take 1 capsule (200 mg total) by mouth nightly 3 Active levothyroxine (SYNTHROID) 137 mcg tabletIndications :hypothyroidism Take 1 tablet (137 mcg total) by mouth chief mate before breakfast 3 Active losartan (COZAAR) 50 mg tabletIndications :hypertension Take 1 tablet (50 mg total) by mouth chief mate before breakfast 3 Active tolterodine (DETROL) 2 mg tabletIndications :Bladder Hyperactivity Take 1 tablet (2 mg total) by mouth 2 (two) times a day 3 Active zolpidem (AMBIEN) 5 mg tabletIndications :Sleep-Onset Insomnia Take 1 tablet (5 mg total) by mouth daily as needed for sleep (for vacation only) 3 Active fexofenadine (JULIAN) 180 mg tabletIndications :Seasonal Allergic Rhinitis Take 1 tablet (180 mg total) by mouth chief mate before breakfast Active cetirizine (ZyrTEC) 10 mg tabletIndications :Perennial Allergic Rhinitis,Seasonal Allergic Rhinitis Take 1 tablet (10 mg total) by mouth chief mate before breakfast Active cannabidiol, CBD, (EPIDIOLEX) 100 mg/mL solutionIndicatio ns:sleep Take 5 mg/kg by mouth nightly as needed (sleep) Active docosahexaenoic acid/epa (FISH OIL ORAL)Indications: supplement Take 1 tablet by mouth chief mate before breakfast Active aspirin 500 mg tablet Take 1 tablet (500 mg total) by mouth every 6 (six) hours as needed for pain or headaches Active sod hlwbw-dorgbc-xsam ez bottle 2,300-700 mg kit Administer 1 spray into each nostril 2 (two) times a day 1 kit 4 Active oxyCODONE (ROXICODONE) 5 mg immediate release tabletIndications :Pain Take 1 tablet (5 mg total) by mouth every 4 (four) hours as needed for pain 5 tablet 4 Active Active Problems Problem Noted Date Diagnosed Date Chronic ethmoidal sinusitis 04/24/2023 CSF leak 04/24/2023 Surgical History Surgery Date Site/Laterality Comments LASIK unusre of date THYROID SURGERY 03/25/1992 - 03/24/1993 FOOT SURGERY unsure of date HYSTERECTOMY 03/25/2017 - 03/24/2018 KNEE SURGERY unsure of date TONSILLECTOMY 03/25/1970 - 03/24/1971 Medical History Medical History Date Comments Allergic rhinitis Arthritis Fracture of nasal bones Hypertension Thyroid disease Sleep apnea Family History Medical History Relation Name Comments Cancer Father Rheum arthritis Mother Anesthesia problems Neg Hx Relation Name Status Comments Father Mother Social History Tobacco Use Types Packs/Day Years Used Date Smoking Tobacco: Never Passive Smoke Exposure: Never Smokeless Tobacco: Never Tobacco Cessation:Counseling Given: Not Answered AUDIT-C Answer Date Recorded Q1: How often do you have a drink containing alc ohol? 2-4 times a month 06/20/2023 Q2: How many drinks containi ng alcohol do you have on a typical day when you are drinking? 1 or 2 06/20/2023 Q3: How often do you have si x or more drinks on one occasion? Never 06/20/2023 Personal Safety Answer Date Recorded Have you ever been in or are you currently in a harmful physical or emotional relationship or is someone making you feel afraid or unsafe? 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 RESOURCES MANAGER Gender Identity Not on file Sexual Orientation Not on file Obstetrics History Last Filed Vital Signs Vital Sign Reading Time Taken Comments Blood Pressure 155/101 06/20/2023 10:00 AM CDT Pulse 99 06/20/2023 10:10 AM CDT Temperature 36 C (96.8 F) 06/20/2023 9:20 AM CDT Respiratory Rate 16 06/20/2023 10:10 AM CDT Oxygen Saturation 97% 06/20/2023 10:10 AM CDT Inhaled Oxygen Concentration - - Weight 97.5 kg (215 lb) 05/24/2023 11:00 AM CENTER HUMAN RESOURCES MANAGER Height 170.2 cm (5' 7 ) 05/24/2023 11:00 AM CENTER HUMAN RESOURCES MANAGER Body Mass Index 33.67 05/24/2023 11:00 AM CENTER HUMAN RESOURCES MANAGER Plan of Treatment Health Maintenance Due Date Last Done Comments Breast Cancer Screening-Mammogram 1961 Colon Cancer Screening-Colonoscopy 1961 Depression Screening 1961 Hepatitis C Screening 1961 Hepatitis B Screening 12/13/1979 Regular Well Visit/Exam 18-64 12/13/1979 Pneumococcal vaccine <65 (1 of 2 - PCV) 1980 Covid-19 Vaccine (2023-2 5 season) 2023 12/16/2022, 12/13/2021, 06/24/2021, Additional history exists Influenza Vaccine (#1) 2023 , 12/13/2021, 12/02/2020, Additional history exists DTaP/Tdap/Td Vaccine (3 - Td or Tdap) 12/28/2026 12/28/2016, 04/21/2012 Zoster Vaccine Completed 02/20/2020, 12/22/2019 Insurance [employer] Sub[place] Plan / Payer (Ef fective 2023-Present) Name:Kathy Manda D Relation to Subscriber:Self Name:Manda Chavez Lakisha Payer ID:[id number] (NAIC) Type:HEALTHCARE/EXCHANGE Address: [place] [id number] [place] Care Teams Telecom Manager Relationship Specialty Start Date End Date Lucas Thomas MD [address] [place] [address] PCP - General Emergency Medicine 04/23/23
--- OUTSIDE RECORDS SUMMARY | 2024-06-24 07:55 | XMS_ITS | Referral Summary ---
Author Organization [facility] Address [address] [place] [id number] Care Team Providers Care Generation Technologist Name Role Phone Lucas Thomas MD Primary [...] 1 tablet (137 mcg total) by mouth early years teacher before breakfast 3 Active losartan (COZAAR) 50 mg tabletIndications :hypertension Take 1 tablet (50 mg total) by mouth early years teacher before breakfast 3 Active tolterodine (DETROL) 2 [...] 1 tablet (180 mg total) by mouth early years teacher before breakfast Active cetirizine (ZyrTEC) 10 mg tabletIndications :Perennial Allergic Rhinitis,Seasonal Allergic Rhinitis Take 1 tablet (10 mg total) by mouth early years teacher before breakfast Active cannabidiol, CBD, (EPIDIOLEX) 100 mg/mL solutionIndicatio ns:sleep Take 5 mg/kg by mouth nightly as needed (sleep) Active docosahexaenoic acid/epa (FISH OIL ORAL)Indications: supplement Take 1 tablet by mouth early years teacher before breakfast Active aspirin 500 mg tablet Take 1 tablet (500 mg total) by mouth every 6 (six) hours as needed for pain or headaches Active sod jnmwk-bzbfrx-rceu ez bottle 2,300-700 mg kit Administer 1 spray into each nostril 2 (two) times a day 1 kit 4 Active oxyCODONE (ROXICODONE) 5 mg immediate release tabletIndications :Pain Take 1 tablet (5 mg total) by mouth every 4 (four) hours as needed for pain 5 tablet 4 Active Active Problems Problem Noted Date Diagnosed Date Chronic ethmoidal sinusitis 04/24/2023 CSF leak 04/24/2023 Social History Tobacco Use Types Packs/Day Years [...] on file Legal Sex Female 2:03 AM PHLEBOTOMY SERVICES REPRESENTATIVE Gender Identity Not on file Sexual Orientation Not on file Last Filed Vital Signs Vital Sign Reading Time Taken Comments Blood Pressure 155/101 06/20/2023 10:00 AM CDT Pulse 99 06/20/2023 10:10 AM CDT Temperature 36 C (96.8 F) 06/20/2023 9:20 AM CDT Respiratory Rate 16 06/20/2023 10:10 AM CDT Oxygen Saturation 97% 06/20/2023 10:10 AM CDT Inhaled Oxygen Concentration - - Weight 97.5 kg (215 lb) 05/24/2023 11:00 AM PHLEBOTOMY SERVICES REPRESENTATIVE Height 170.2 cm (5' 7 ) 05/24/2023 11:00 AM PHLEBOTOMY SERVICES REPRESENTATIVE Body Mass Index 33.67 05/24/2023 11:00 AM PHLEBOTOMY SERVICES REPRESENTATIVE Plan of Treatment Not on file [place] Care Teams Generation Technologist Relationship Specialty Start Date End Date Lucas Thomas MD [address] [facility] [place] [address] PCP - General Emergency Medicine 04/23/23
--- OUTSIDE RECORDS SUMMARY | 2024-06-24 07:55 | XMS_ITS | Clinical Summary ---
Author Organization [facility] Care Team Providers Care Bus Operator Name Role Phone Unavailable Primary Care Provider Unavailabl e Social History Tobacco Use Types Packs/Day Years Used Date Smoking Tobacco: Never Assessed Comments Unknown Sex and Gender Information Value Date Recorded Sex Assigned at Not on file Legal Sex Female 8:58 AM ECOMMERCE MERCHANDISING MANAGER Gender Identity Not on file Sexual Orientation Not on file Plan of Treatment Health Maintenance Due Date Last Done Comments Hepatitis C Virus (HCV) Screening 1961 Pap Smear 1982 Cervical Cancer Screening (CCS) 12/13/1991 HPV/Cotest 12/13/1991 Colonoscopy 2006 Colorectal Cancer Screening 2006 Cologuard 12/13/2011 Immunochemical Fecal Occult Blood 12/13/2011 Mammogram 12/13/2011 Pneumococcal Immunization (50+ years) (1 of 1 - PCV) 12/13/2011 Influenza Immunization (#1) 11/24/202311/24, 01/02/2019, 01/01/2018, Additional history exists SARS-COV-2 Immunization ( - 2023- season) 2023 Respiratory Syncytial Virus (RSV) Immunization (Adult) (1 - 1-dose 75+ series) 2036 DTaP/Tdap/Td Immunization Discontinued 12/28/2016, TdaP Immunization Completed 12/28/2016, 04/21/2012 Zoster Immunization Completed 02/20/2020, 0 Hepatitis B Immunization Aged Out No longer eligible based on patient's age to complete this topic Meningococcal Immunization (ACWY) Aged Out No longer eligible based on patient's age to complete this topic Pneumococcal Immunization Combined Aged Out No longer eligible based on patient's age to complete this topic Rotavirus Immunization Aged Out No lo nger eligible based on patient's age to complete this topic
--- OUTSIDE RECORDS SUMMARY | 2024-06-24 07:55 | XMS_ITS | Continuity of Care Document ---
Author Organization [facility] Address [address] [facility] [address] [place] [address] Phone Care Team Providers Care Varnish Melter Helper Name Role Phone Aldo Coronado MD Unavailable [...] Copied on Encounter OFFICE/OUTPA TIENT VISIT EST [facility], [address] [facility] [address], [place], [facility], tel:[phone] [facility] Impingement syndrome of right shoulder 7 Ivonne Carlson. [address] [facility] [address], [place], [place], [id number]. tel:[phone] OFFICE/OUTPA TIENT VISIT EST [facility], [address] [facility] [address], [place], [place], [facility], tel:[phone] [facility] Rotator cuff impingement syndrome of left shoulderImping ement syndrome of right shoulder 7 Ivonne Carlson. [address] [facility] [address], [place], [place], [id number]. tel:[phone] OFFICE/OUTPA TIENT VISIT [facility], [address], [address], tel:[phone] [facility] Right rotator cuff tendonitis 1 7 Ivonne Carlson. [address], [place], [place], [id number]. tel:[phone] [facility], [address] [place] [address], [address], [place] tel:[phone] [facility] Knee pain, right Apr-3 0-201 4 Zelda Kelsy. [address] [place] [address], [place], [place], [id number]. tel:[phone] OFFICE/OUTPA TIENT VISIT [facility], [address], [address], [place] tel:[phone] [facility] Knee pain, right May- 0-201 4 Zelda Kelsy. [address] [place] [address], [place], [place], [id number]. tel:[phone] OFFICE/OUTPA TIENT VISIT [facility], [address], [address], [place] tel:[phone] [facility] Bakers cyst 7 4 Tru Gomez. [address] [place] [address], [id number]. tel:[phone] Family History Family Member Type Diagnosis Age At Onset Mother Problem (finding) Alive and well Payers Payer name Insurance type Covered constitution party ID Zulay fam(s) Blue Access PPO [id number] Social History Type Description Quantity Date Captured [...] Assessment Date assessment [facility] Care Teams Name Effective Dates (start - stop) Status Members No Information
--- NOTE | 2024-06-24 08:41 | ECG_ITS ---
Test Date: 2024-06-24 09:06:52 Measurements Intervals [place] Rate: 82 P: 14 ND: 134 QRS: -32 QRSD: 78 T: 45 QT: 353 QTc: 413 Interpretive Statements SINUS RHYTHM LEFT AXIS DEVIATION PATTERN CONSISTENT WITH PULMONARY DISEASE BORDERLINE T WAVE ABNORMALITY- ANTERIOR LEADS BORDERLINE ECG No previous ECG available for comparison Electronically Signed On 06-24-2024 09:09:00 CDT by Daryn Knott D.O.
[2024-06-24 09:22] LABS: Basophils Absolute Auto 0.1 K/mm3 (0.0-0.1); Basophils Percent Auto 1.3 % (0.2-1.2); Eosinophils Absolute Auto 0.2 K/mm3 (0-0.3); Eosinophils Percent Auto 3.2 % (0-4.4); Hematocrit 44.3 % (37.0-47.0); Hemoglobin 13.9 g/dL (12.0-15.0); Immature Granulocyte Absolute 0.03 K/mm3 (0.00-0.031); Immature Granulocyte Percent A 0.5 % (0-0.5); Lymphocytes Absolute Auto 1.65 K/mm3 (0.9-3.2); Lymphocytes Percent Auto 29.7 % (18.3-44.2); Mean Corpuscular HGB Conc 31.4 g/dl (32-36); Mean Corpuscular Hemoglobin 26.5 pg (26-34); Mean Corpuscular Volume 84.5 fl (80-100); Mean Platelet Volume 9.2 fl (7.4-10.4); Monocytes Absolute Auto 0.5 K/mm3 (0.1-0.6); Monocytes Percent Auto 9.5 % (2.6-8.5); Neutrophils Absolute Auto 3.1 K/mm3 (1.3-6.7); Neutrophils Percent Auto 55.8 % (45.5-73.1); Platelet Count Result 220 k/mm3 (150-375); Red Blood Count 5.24 M/mm3 (4.2-5.4); Red Cell Distribution Width 13.7 % (11.5-14.5); White Blood Count 5.6 K/mm3 (4.5-10.0)
[2024-06-24 09:29] LABS: Albumin Level 4.4 g/dL (3.5-5.1); Estimated Glomerular Filt Rate 60; Glucose 91 mg/dL (65-110)
[2024-06-24 09:31] LABS: Urine Cotinine NEGATIVE
[2024-06-24 10:39] LABS: MRSA (PCR) NOT DETECTED (NOT DETECTE)
[2024-06-24 17:03] LABS: Hemoglobin A1C 6.1 % (<5.7)
== END 2024-06-24 07:48 | disposition home or self-care (01) ==
LOC: ANHSURGERY 07:50
PROVIDERS: PCP Emergency Medicine; Visit Provider Orthopaedic Surgery
DX: M17.12 Unilateral primary osteoarthritis, left knee (principal); Z01.818 Encounter for other preprocedural examination
CPT/HCPCS: 80307; 82040; 82565; 82947; 83036; 85025; 87641; 93005

== ENCOUNTER 2024-07-10 07:27 | Outpatient (CLI) | payer BC, SELFPAY ==
--- NOTE | ~2024-07-10 | MM_ITS ---
EXAMINATION: MM screening roel BI w willie HISTORY: Screening TECHNIQUE: Craniocaudal and mediolateral oblique 3-D tomosynthesis images were obtained and synthetic 2-D images were generated. CAD analysis was submitted and interpreted. COMPARISON: 01/02/2016 BREAST PARENCHYMAL COMPOSITION: Dense: The breasts are heterogeneously dense, which may obscure small masses FINDINGS: There is no evidence of suspicious mass, calcification, or architectural distortion to sugg est malignancy in either breast. There has been no suspicious interval change. IMPRESSION: 1. No mammographic evidence of malignancy. 2. Recommend routine screening mammography in one year. BI-RADS Category 1: Negative Reviewed, dictated and finalized at location B.
--- OUTSIDE RECORDS SUMMARY | 2024-07-10 07:31 | XMS_ITS | Clinical Summary ---
Author Organization [facility] Care Team Providers Care Supervisor Grounds Name Role Phone Unavailable Primary Care Provider Unavailabl e Social History Tobacco Use Types Packs/Day Years Used Date Smoking Tobacco: Never Assessed Comments Unknown Sex and Gender Information Value Date Recorded Sex Assigned at Not on file Legal Sex Female 8:58 AM RESTAURANT HOSPITALITY MANAGER Gender Identity Not on file Sexual [...]
--- OUTSIDE RECORDS SUMMARY | 2024-07-10 07:31 | XMS_ITS | Referral Summary ---
Author Organization [facility] Address [address] [place] [id number] Care Team Providers Care Rabies Inspector Name Role Phone Lucas Thomas MD Primary [...] 1 tablet (137 mcg total) by mouth coal screener before breakfast 3 Active losartan (COZAAR) 50 mg tabletIndications :hypertension Take 1 tablet (50 mg total) by mouth coal screener before breakfast 3 Active tolterodine (DETROL) 2 [...] 1 tablet (180 mg total) by mouth coal screener before breakfast Active cetirizine (ZyrTEC) 10 mg tabletIndications :Perennial Allergic Rhinitis,Seasonal Allergic Rhinitis Take 1 tablet (10 mg total) by mouth coal screener before breakfast Active cannabidiol, CBD, (EPIDIOLEX) 100 mg/mL solutionIndicatio ns:sleep Take 5 mg/kg by mouth nightly as needed (sleep) Active docosahexaenoic acid/epa (FISH OIL ORAL)Indications: supplement Take 1 tablet by mouth coal screener before breakfast Active aspirin 500 mg tablet Take 1 tablet (500 mg total) by mouth every 6 (six) hours as needed for pain or headaches Active sod fmboz-xekugv-frvp ez bottle 2,300-700 mg kit Administer 1 [...] on file Legal Sex Female 2:03 AM PAPER MACHINE BACK TENDER Gender Identity Not on file Sexual Orientation [...] 97.5 kg (215 lb) 05/24/2023 11:00 AM PAPER MACHINE BACK TENDER Height 170.2 cm (5' 7 ) 05/24/2023 11:00 AM PAPER MACHINE BACK TENDER Body Mass Index 33.67 05/24/2023 11:00 AM PAPER MACHINE BACK TENDER Plan of Treatment Not on file [place] Care Teams Rabies Inspector Relationship Specialty Start Date End Date Lucas Thomas MD [address] [place] [address] PCP - General Emergency Medicine 04/23/23
--- OUTSIDE RECORDS SUMMARY | 2024-07-10 07:31 | XMS_ITS | Clinical Summary ---
Author Organization [facility] Address [address] [place] [id number] Care Team Providers Care Precast Concrete Products Installer Name Role Phone Lucas Thomas MD Primary [...] 1 tablet (137 mcg total) by mouth auto dismantler before breakfast 3 Active losartan (COZAAR) 50 mg tabletIndications :hypertension Take 1 tablet (50 mg total) by mouth auto dismantler before breakfast 3 Active tolterodine (DETROL) 2 [...] 1 tablet (180 mg total) by mouth auto dismantler before breakfast Active cetirizine (ZyrTEC) 10 mg tabletIndications :Perennial Allergic Rhinitis,Seasonal Allergic Rhinitis Take 1 tablet (10 mg total) by mouth auto dismantler before breakfast Active cannabidiol, CBD, (EPIDIOLEX) 100 mg/mL solutionIndicatio ns:sleep Take 5 mg/kg by mouth nightly as needed (sleep) Active docosahexaenoic acid/epa (FISH OIL ORAL)Indications: supplement Take 1 tablet by mouth auto dismantler before breakfast Active aspirin 500 mg tablet Take 1 tablet (500 mg total) by mouth every 6 (six) hours as needed for pain or headaches Active sod emgds-bbsjxr-pmrk ez bottle 2,300-700 mg kit Administer 1 [...] on file Legal Sex Female 2:03 AM ELECTRICAL MANAGER Gender Identity Not on file Sexual [...] 97.5 kg (215 lb) 05/24/2023 11:00 AM ELECTRICAL MANAGER Height 170.2 cm (5' 7 ) 05/24/2023 11:00 AM ELECTRICAL MANAGER Body Mass Index 33.67 05/24/2023 11:00 AM ELECTRICAL MANAGER Plan of Treatment Health Maintenance Due Date Last Done Comments Breast Cancer Screening-Mammogram 1961 Colon Cancer Screening-Colonoscopy 1961 Depression Screening 1961 Hepatitis C Screening 1961 Hepatitis B Screening 12/13/1979 Regular Well Visit/Exam 18-64 12/13/1979 Pneumococcal vaccine <65 (1 of 2 - PCV) 1980 Covid-19 Vaccine (2023-2 5 season) 2023 12/16/2022, 12/13/2021, 06/24/2021, Additional history exists Influenza Vaccine (Season Ended) 2024 12/16/2022, 12/13/2021, 12/02/2020, Additional history exists DTaP/Tdap/Td Vaccine (3 - Td or Tdap) 12/28/2026 12/28/2016, 04/21/2012 Zoster Vaccine Completed 02/20/2020, 12/22/2019 [place] Sub[place] Plan / Payer (Ef fective 2023-Present) Name:Kathy Manda D Relation to Subscriber:Self Name:Manda Chavez Lakisha Payer ID:[id number] (NAIC) Type:HEALTHCARE/EXCHANGE Address: [place] [id number] [place] Care Teams Precast Concrete Products Installer Relationship Specialty Start Date End Date Lucas Thomas MD [address] [place] [address] PCP - General Emergency Medicine 04/23/23
--- OUTSIDE RECORDS SUMMARY | 2024-07-10 07:31 | XMS_ITS | Continuity of Care Document ---
Author Organization [facility] Address [address] [facility] [address] [facility] [address] [place] [address] Phone Care Team Providers Care Specification Writer Name Role Phone Aldo Coronado MD Unavailable [...] [facility], [address] [facility] [address], [place], [facility], tel:[phone] [facility] Impingement syndrome of right shoulder 7 Ivonne Carlson. [address] [facility] [address], [place], [place], [id number]. tel:[phone] OFFICE/OUTPA TIENT VISIT EST [facility], [address] [facility] [address], [place], [place], [facility], tel:[phone] [facility] Rotator cuff impingement syndrome of left shoulderImping ement syndrome of right shoulder 7 Ivonne Carlson. [address] [facility] [address], [place], [place], [id number]. tel:[phone] OFFICE/OUTPA TIENT VISIT [facility], [address], [address], tel:[phone] [facility] Right rotator cuff tendonitis 1 7 Ivonne Carlson. [address], [place], [place], [id number]. tel:[phone] [facility], [address] [place] [address], [address], [place] tel:[phone] [facility] Knee pain, right Apr-3 0-201 4 Zelda Kelsy. [address] [address], [place], [place], [id number]. tel:[phone] OFFICE/OUTPA TIENT VISIT [facility], [address], [address], [place] tel:[phone] [facility] Knee pain, right May- 0-201 4 Zelda Kelsy. [address] [address], [place], [place], [id number]. tel:[phone] OFFICE/OUTPA TIENT VISIT [facility], [address], [address], [place] tel:[phone] [facility] Bakers cyst 7 4 Tru Gomez. [address] [place] [address], [id number]. tel:[phone] Family History Family Member Type Diagnosis Age At Onset Mother Problem (finding) Alive and well Payers Payer name Insurance type Covered green party ID Zulay fam(s) Blue Access PPO E2 OT [id number] Social History Type Description Quantity Date Captured [...] Assessment Date assessment Impingement syndrome of right [facility] Patient Care Teams Name Effective Dates (start - stop) Status Members No Information
== END 2024-07-10 07:28 | disposition home or self-care (01) ==
LOC: ANHIMG 07:29
PROVIDERS: PCP Emergency Medicine; Visit Provider Obstetrics & Gynecology
DX: Z12.31 Encounter for screening mammogram for malignant neoplasm of breast (principal)
CPT/HCPCS: 77063; 77067

== ENCOUNTER 2024-08-19 00:40 | Day surgery (SDC) | payer BC, SELFPAY ==
--- NOTE | 2024-06-24 07:49 | PC.NURSE ---
Report to the Outpatient Waiting Room, entrance under the green pavilion located off [facility], at time __6 am on date _08/19/24 . Planned Procedure Time: __7:30 am .? Time changes happen often and if your time is changed the preop area will call you the afternoon before. - You and your visitor will be asked to self-screen and do not enter if you have any COVID symptoms. Please call surgeon if you need to reschedule. - A mask is optional within the hospital at this time. Patients may have clear liquids (water, carbonated beverages, clear teas, apple juice) until 3 hours prior to surgery ( 4:30 am) with a maximum of 20 ounces. - No food from midnight until time of surgery and no smoking, or chewing tobacco (or any form of nicotine). No chewing gum, candy or mints. - Take only the following medications with a SIP of water on the morning of surgery: ___LEVOTHYROXINE DO NOT STOP ANY OF YOUR OTHER PRESCRIPTION MEDICATIONS PRIOR TO SURGERY EXCEPT THE FOLLOWING Hold all vitamins and supplements for 3 days per anesthesiologist. LAST DOSE 08/15/24 Medications to discontinue per physician NAPROXEN PER DR FRANKLIN Date to take last dose TOTAL JOINT CLASS 06/24/24 AT 10 AM Please no make-up, nail [place], hairspray, perfume, deodorant, or body powder the day of surgery.? No jewelry (including any body piercings) or valuables the day of surgery, leave them at home.? Please take a shower or bath the night before, or the morning of, surgery with an antibacterial soap.? Wear comfortable, loose fitting clothing.? Children are encouraged to wear pajamas. - Jewelry must be removed prior to entering the operating room.? Rings and piercings that are not removed may be cut off. - The hospital will not accept responsibility for valuables.? - Please leave all valuables, including medications, at home the day of surgery. If you are going home after surgery, a licensed driver/sales workers must drive you home.? - NO public transportation without another adult if you receive anesthesia. - We recommend that an adult stay with you for 24 hours following discharge. - We also recommend that you do not drive, make important decision, drink alcoholic beverages, or take any drugs that were not prescribed by your health care provider for at least 24 hours after your discharge time. For Pediatric surgeries, we recommend two adults accompany the child home. Follow any additional instructions given to you from your surgeon. verbal and written instructions given to __PATIENT and asked if any additional questions and then verbalized understanding. Patient advised to call surgeon office or pre surgery nurse liaison [phone] if any additional questions.
[2024-06-24 07:54] VITALS: BMI 35.7
[2024-06-24 08:42] VITALS: BP 138/94; PULSE 80; RESP 18; TEMP 37.2; O2SAT 98
--- NOTE | 2024-08-18 07:06 | PM.IMHP ---
H&P: HPI History of Present Illness Date/Time: 08/18/24 07:06 Chief Complaint: Patient has hgfn-vc-nevx arthritis left knee. She has failed conservative treatment like to proceed with knee replacement surgery. She has had right knee replacement earlier this year. She has done well from that. Review of Systems Musculoskeletal: Musculoskeletal: Reports arthralgias, Reports joint swelling, Reports limited range of motion and Reports loss of height PMFSH Past Medical History Medical History Chronic sinusitis Hypothyroidism Hypertension Osteoarthritis Surgical History Surgical History History of right hip replacement 08/26/23 History of endometrial ablation (11/24/11) History of laparoscopy (09/17/11) With adhesiolysis. History of total abdominal hysterectomy and bilateral salpingo-oophorectomy (05/02/17) For uterine prolapse and cervical dysplasia. History of laser assisted in situ keratomileusis History of loop electrical excision procedure (LEEP) (1993) History of arthroscopy of left knee History of nasal surgery History of colposcopy (01/21/17) History of tonsillectomy History of partial thyroidectomy (2002) Right History of foot surgery right x 2 Family History Family History Sibling Diabetes mellitus Family history of seizure disorder Pancreatitis Father Family history of lung cancer, Onset Age: 59 Other Heart disease Mother COPD (chronic obstructive pulmonary disease) Emphysema/COPD Social History Social History Social History: Surrogate medical decision maker: Chica Anthony, sibling. Code status: Full code. Smoking status: Never smoker Second hand tobacco smoke exposure: Yes Additional smoking assessment comments: DENIES ANY FORM OF TOBACCO USE Alcohol intake: current Drinks per week: 2 Alcohol use details: BEER Substance use: current Substance use type: marijuana Other substance usage details: gummie to sleep Do You Feel Safe in your Home?: Yes Lack of Transportation: No Lack of Food: Never True Current Housing: I Have Housing Concerned About Future Housing: No Difficulty Paying Gas/Electric Bills: No Difficulty Paying for Meds: No Currently Unemployed: No Education: Bachelor's Degree Difficulty w/ Childcare or Family Care: No Living arrangements: alone Occupation/Education: occupation 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 Gender identity (if verbalized by the patient): Female Spiritual care concerns: No Meds Home Medications and Allergies Home Medications ?Medication ?Instructions ?Recorded ?Confirmed ?Type omega 3-nzy-xfz-fish oil 1,000 mg 1 cap PO DAILY 04/01/20 08/04/24 History (120 mg-180 mg) capsule (Fish Oil) fexofenadine 60 mg tablet (Yolande 60 mg PO QAM 01/30/21 08/04/24 History Allergy) cetirizine 10 mg capsule (Zyrtec) 10 mg PO HS 07/25/23 08/04/24 History cholecalciferol (vitamin D3) 50 100 mcg (2 x 50 mcg (2,000 unit)) 08/13/23 08/04/24 Rx mcg (2,000 unit) capsule PO DAILY #180 caps naproxen 500 mg tablet 500 mg PO BID #180 tabs 02/04/24 08/04/24 Rx tolterodine 2 mg tablet See Rx Instructions .Route 02/12/24 08/04/24 Rx .COMPLEX #180 tabs levothyroxine 125 mcg tablet 125 mcg PO DAILY #90 tabs 03/16/24 08/04/24 Rx losartan 50 mg tablet See Rx Instructions .Route 07/10/24 08/04/24 Rx .COMPLEX #90 tabs azelastine 137 mcg (0.1 %) nasal 1 spray intranasal .qd-bid PRN 08/04/24 History spray fluticasone propionate 50 1 spray intranasal BID PRN 08/04/24 08/04/24 History mcg/actuation nasal spray,suspension (Flonase Allergy Relief) Allergies Allergy/AdvReac Type Severity Reaction Status Date / Time No Known Allergies Allergy Verified 08/04/24 15:13 Exam Narrative: On exam she has motion of her LEFT knee from 5-100 10?. She has varus deformity. She has grinding crepitus and pain. She walks with an antalgic gait. Neurologically she is intact. Assessment and Plan Assessment and plan (1) Osteoarthritis of knees, bilateral: Code(s): M17.0 - Bilateral primary osteoarthritis of knee Status: Acute Assessment and Plan: Patient has arthritis left knee. She has ktwk-dj-ypgx changes failed conservative treatment. She has already had a knee replacement on the right knee for osteoarthritis as well. I have discussed treatment options with the patient in detail. We discussed risks, benefits, limitations, and alternatives. She understands and agrees would like to proceed. Will proceed per her request.
[2024-08-19] VITALS (19 sets, daily range): BP systolic 128–152; BP diastolic 70–96; PULSE 45–104; RESP 12–20; TEMP 36.1–37.1; O2SAT 92–100; BMI 35.7
--- NOTE | ~2024-08-19 | XR_ITS ---
EXAMINATION: [id number] DATE: 08/19/2024 9:50 CDT INDICATION: Left knee arthroplasty TECHNIQUE: 2 views left knee FINDINGS: There is a left total knee arthroplasty in expected position. Subcutaneous gas with fluid and air in the joint and overlying skin mary jane are consistent with recent surgery. No evidence of pe riprosthetic fracture. IMPRESSION: 1. Recent left total knee arthroplasty. Reviewed, dictated and finalized at location A.
--- OUTSIDE RECORDS SUMMARY | 2024-08-19 00:43 | XMS_ITS | Referral Summary ---
Author Organization [facility] Address [address] [place] [id number] Care Team Providers Care Street Car Inspector Name Role Phone Lucas Thomas MD [...] 1 tablet (137 mcg total) by mouth deputy chief executive before breakfast 3 Active losartan (COZAAR) 50 mg tabletIndications :hypertension Take 1 tablet (50 mg total) by mouth deputy chief executive before breakfast 3 Active tolterodine (DETROL) 2 [...] 1 tablet (180 mg total) by mouth deputy chief executive before breakfast Active cetirizine (ZyrTEC) 10 mg tabletIndications :Perennial Allergic Rhinitis,Seasonal Allergic Rhinitis Take 1 tablet (10 mg total) by mouth deputy chief executive before breakfast Active cannabidiol, CBD, (EPIDIOLEX) 100 mg/mL solutionIndicatio ns:sleep Take 5 mg/kg by mouth nightly as needed (sleep) Active docosahexaenoic acid/epa (FISH OIL ORAL)Indications: supplement Take 1 tablet by mouth deputy chief executive before breakfast Active aspirin 500 mg tablet Take 1 tablet (500 mg total) by mouth every 6 (six) hours as needed for pain or headaches Active sod synau-yimrmd-bboc ez bottle 2,300-700 mg kit Administer 1 [...] on file Legal Sex Female 2:03 AM MSW Gender Identity Not on file Sexual Orientation [...] 97.5 kg (215 lb) 05/24/2023 11:00 AM MSW Height 170.2 cm (5' 7) 05/24/2023 11:00 AM MSW Body Mass Index 33.67 05/24/2023 11:00 AM MSW Plan of Treatment Not on file [place] Care Teams Street Car Inspector Relationship Specialty Start Date End Date Lucas Thomas MD [address] [place] [address] PCP - General Emergency Medicine 04/23/23
--- OUTSIDE RECORDS SUMMARY | 2024-08-19 00:43 | XMS_ITS | Continuity of Care Document ---
Author Organization [facility] Address [address] [facility] [address] [place] [address] Phone Care Team Providers Care Track Inspecting Supervisor Name Role Phone Aldo Coronado MD Unavailable [...] Copied on Encounter OFFICE/OUTPA TIENT VISIT EST [facility], [address] [facility] [address], [place], [facility], tel:[phone] [facility] Impingement syndrome of right shoulder 7 Ivonne Carlson. [address] [facility] [address], [place], [place], [id number]. tel:[phone] OFFICE/OUTPA TIENT VISIT EST [facility], [address] [facility] [address], [place], [place], [facility], tel:[phone] [facility] Rotator cuff impingement syndrome of left shoulderImping ement syndrome of right shoulder 7 Ivonne Carlson. [address], [place], [place], [id number]. tel:[phone] OFFICE/OUTPA TIENT VISIT [facility], [address], [address], tel:[phone] [facility] Right rotator cuff tendonitis 1 7 Ivonne Carlson. [address], [place], [place], [id number]. tel:[phone] [facility], [address] [place] [address], [address], [place] tel:[phone] [facility] Knee pain, right Apr-3 0-201 4 Zelda Kelsy. [address] [address], [place], [place], [id number]. tel:[phone] OFFICE/OUTPA TIENT VISIT [facility], [address], [address], [place] tel:[phone] [facility] Knee pain, right May- 0-201 4 Zelda Kelsy. [address] [address], [place], [place], [id number]. tel:[phone] OFFICE/OUTPA TIENT VISIT [facility], [address], [address], [place] tel:[phone] [facility] Bakers cyst 7 4 Tru Gomez. [address] [place] [address], [id number]. tel:[phone] Family History Family Member Type Diagnosis Age At Onset Mother Problem (finding) Alive and well Payers Payer name Insurance type Covered alliance party ID Zulay fam(s) Blue Access PPO E2 [place] [id number] Social History Type Description Quantity Date Captured [...] Assessment Date assessment [facility]ing[facility] Patient Care Teams Name Effective Dates (start - stop) Status Members No Information
--- OUTSIDE RECORDS SUMMARY | 2024-08-19 00:43 | XMS_ITS | Clinical Summary ---
Author Organization [facility] Care Team Providers Care Warp Yarn Sorter Name Role Phone Unavailable Primary Care Provider Unavailabl e Social History Tobacco Use Types Packs/Day Years Used Date Smoking Tobacco: Never Assessed Comments Unknown Sex and Gender Information Value Date Recorded Sex Assigned at Not on file Legal Sex Female 8:58 AM COMPOSITION ROOFER Gender Identity Not on file Sexual Orientation [...]
--- OUTSIDE RECORDS SUMMARY | 2024-08-19 00:43 | XMS_ITS | Clinical Summary ---
Author Organization [facility] Address [address] [place] [id number] Care Team Providers Care Risk Compliance Manager Name Role Phone Lucas Thomas MD [...] 1 tablet (137 mcg total) by mouth inpatient coder before breakfast 3 Active losartan (COZAAR) 50 mg tabletIndications :hypertension Take 1 tablet (50 mg total) by mouth inpatient coder before breakfast 3 Active tolterodine (DETROL) 2 [...] 1 tablet (180 mg total) by mouth inpatient coder before breakfast Active cetirizine (ZyrTEC) 10 mg tabletIndications :Perennial Allergic Rhinitis,Seasonal Allergic Rhinitis Take 1 tablet (10 mg total) by mouth inpatient coder before breakfast Active cannabidiol, CBD, (EPIDIOLEX) 100 mg/mL solutionIndicatio ns:sleep Take 5 mg/kg by mouth nightly as needed (sleep) Active docosahexaenoic acid/epa (FISH OIL ORAL)Indications: supplement Take 1 tablet by mouth inpatient coder before breakfast Active aspirin 500 mg tablet Take 1 tablet (500 mg total) by mouth every 6 (six) hours as needed for pain or headaches Active sod doore-hywstn-ylrg ez bottle 2,300-700 mg kit Administer 1 [...] on file Legal Sex Female 2:03 AM TRAUMA DIRECTOR Gender Identity Not on file Sexual Orientation [...] 97.5 kg (215 lb) 05/24/2023 11:00 AM TRAUMA DIRECTOR Height 170.2 cm (5' 7) 05/24/2023 11:00 AM TRAUMA DIRECTOR Body Mass Index 33.67 05/24/2023 11:00 AM TRAUMA DIRECTOR Plan of Treatment Health Maintenance Due Date [...] Chavez Lakisha Payer ID:[id number] (NAIC) Type:HEALTHCARE/EXCHANGE Address: [place] [id number] [place] Care Teams Risk Compliance Manager Relationship Specialty Start Date End Date Lucas Thomas MD [address] [place] [address] PCP - General Emergency Medicine 04/23/23
[2024-08-19] MEDS: LACTATED RINGERS 1,000 ML 30 ML IV CONT ×2 (06:15→09:44)
--- NOTE | 2024-08-19 06:48 | WPDHPUPDATE1 ---
History and Physical Update Update Date/Time: 08/19/24 06:48 History and Physical has been reviewed, including an updated exam of the patient. There are NO changes in the patient's condition. Risks, benefits, and alternatives have been discussed and questions answered. Patient agrees to proceed with procedure.
[2024-08-19] MEDS: VANCOMYCIN 1,500 MG/NS 500 ML BAG 250 MG IVPB (07:09)
[2024-08-19] MEDS: TRANEXAMIC ACID 1,000MG/ISO100 1,000 MG/100 ML BAG 200 MG IVPB (07:10)
[2024-08-19] MEDS: ACETAMINOPHEN 500 MG TABLET 1000 MG PO (07:12)
--- NOTE | 2024-08-19 07:27 | P.PNAN_ITS ---
Anes - Initial Pre Proc Eval Procedure: Operation Date: 08/19/24 07:30 Proposed Procedures p Left Total Knee Arthroplasty - Rupert Rico MD Date/Time: 08/19/24 07:27 Surgeon: Rupert Rico MD Pre Op Diagnosis: oa left knee Patient Data Age: 63 Gender: F Height: 1.68 m Weight: 100.5 kg Last Vital Signs Temp 98.8 F 08/19/24 06:20 Pulse 88 08/19/24 06:20 Resp 18 08/19/24 06:20 BP 133/82 08/19/24 06:20 Pulse Ox 97 08/19/24 06:20 O2 Del Method Room Air 08/19/24 06:20 Allergies Allergy/AdvReac Type Severity Reaction Status Date / Time No Known Allergies Allergy Verified 08/19/24 06:12 Home Medications ?Medication ?Instructions ?Recorded ?Confirmed ?Type omega 8-jxz-mkp-fish oil 1,000 mg 1 cap PO DAILY 04/01/20 08/19/24 History (120 mg-180 mg) capsule (Fish Oil) fexofenadine 60 mg tablet (Yolande 60 mg PO QAM 01/30/21 08/19/24 History Allergy) cetirizine 10 mg capsule (Zyrtec) 10 mg PO HS 07/25/23 08/19/24 History cholecalciferol (vitamin D3) 50 100 mcg (2 x 50 mcg (2,000 unit)) 08/13/23 08/19/24 Rx mcg (2,000 unit) capsule PO DAILY #180 caps naproxen 500 mg tablet 500 mg PO BID #180 tabs 02/04/24 08/19/24 Rx levothyroxine 125 mcg tablet 125 mcg PO DAILY #90 tabs 03/16/24 08/19/24 Rx losartan 50 mg tablet See Rx Instructions .Route 07/10/24 08/19/24 Rx .COMPLEX #90 tabs azelastine 137 mcg (0.1 %) nasal 1 spray intranasal .qd-bid PRN 08/04/24 History spray fluticasone propionate 50 1 spray intranasal BID PRN 08/04/24 08/04/24 History mcg/actuation nasal spray,suspension (Flonase Allergy Relief) tolterodine 2 mg tablet See Rx Instructions .Route 08/18/24 Rx .COMPLEX #180 tabs Laboratory Tests 08/19/24 06:26 Blood Type O Positive Antibody Screen Pending Patient hx anesthesia problems: none Family hx anesthesia problems: none Results Review: All pre-operative results and documents have been reviewed as part of the pre- operative evaluation. [facility] Past Medical History Medical History Chronic sinusitis Hypothyroidism Hypertension Osteoarthritis Surgical History Surgical History History of right hip replacement 08/26/23 History of endometrial ablation (11/24/11) History of laparoscopy (09/17/11) With adhesiolysis. History of total abdominal hysterectomy and bilateral salpingo-oophorectomy (05/02/17) For uterine prolapse and cervical dysplasia. History of laser assisted in situ keratomileusis History of loop electrical excision procedure (LEEP) (1993) History of arthroscopy of left knee History of nasal surgery History of colposcopy (01/21/17) History of tonsillectomy History of partial thyroidectomy (2002) Right History of foot surgery right x 2 Family History Family History Sibling Diabetes mellitus Family history of seizure disorder Pancreatitis Father Family history of lung cancer, Onset Age: 59 Other Heart disease Mother COPD (chronic obstructive pulmonary disease) Emphysema/COPD Social History Social History Social History: Surrogate medical decision maker: Chica Anthony, sibling. Code status: Full code. Smoking status: Never smoker Second hand tobacco smoke exposure: Yes Additional smoking assessment comments: DENIES ANY FORM OF TOBACCO USE Alcohol intake: current Drinks per week: 2 Alcohol use details: BEER Substance use: current Substance use type: marijuana Other substance usage details: gummie to sleep Do You Feel Safe in your Home?: Yes Lack of Transportation: No Lack of Food: Never True Current Housing: I Have Housing Concerned About Future Housing: No Difficulty Paying Gas/Electric Bills: No Difficulty Paying for Meds: No Currently Unemployed: No Education: Bachelor's Degree Difficulty w/ Childcare or Family Care: No Living arrangements: alone Occupation/Education: occupation 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 Gender identity (if verbalized by the patient): Female Spiritual care concerns: No Anes - Eval Final PreProcedure Day of Procedure 08/19/24 07:27 Patient weight: obese Lungs: normal air movement Airway: Mallampati scale class II Neurological: alert and oriented Last oral intake: >/= 8 hours ASA classification: III Emergent: no Anesthetic plan: proceed Anesthesia type and monitoring: general LMA and standard monitoring Results Review: All pre-operative results and documents have been reviewed as part of the pre- operative evaluation. HTN, hyperlipidemia, hypothyroidism. Informed Consent: The patient's anesthetic plan and its attendant risks and benefits were discussed with the patient/family/POA. Questions were solicited and answers provided to the satisfaction of the patient/family/POA.
--- NOTE | 2024-08-19 07:29 | WPDANESPNB ---
Anes - Peripheral Nerve Block Date/Time: 08/19/24 07:29 I have discussed with the patient/family/POA the placement of a peripheral nerve block for post-operative pain management, including associated risks, benefits, complications, and side effects. Alternative methods of post-operative analgesia were detailed. Questions were solicited and answers provided to the satisfaction of the patient/family/POA. Time-Out: A pre-procedural Time-Out was completed immediately before starting the procedure and confirmed: Patient Identification, Site, Procedure, Patient Position and the Availability of Requisite Equipment. Clinical Indications: Acute post-operative pain management requested by the operative surgeon. Nerve Block Insertion Note Anes-nerve block: adductor canal left Patient position: supine Skin prep: chlorhexidine Needle: 22 gauge, stimulating, insulated echogenic needle. Needle length: 80 mm Technique: ultrasound Injectate: other (Bupiv 0.5%, 15 mls. ) Observations: tolerated well Complications: none Procedure start time:: 720 Procedure end time:: 725
[2024-08-19] MEDS: ceFAZolin 2 GM/D5W 50 ML 2 GM/50 ML BAG IVPB ×2 (07:30→16:10)
[2024-08-19] MEDS: SODIUM CHLORIDE 0.9% IV 37.7 ML, MORPHINE SULFATE INJ (*CRX) 2 MG, ROPivacaine HCL 1% 2... INFILTRATE (08:15)
[2024-08-19] MEDS: GENTAMICIN BONE CEMENT REFOBACIN 1 EACH TOPICAL (08:26)
[2024-08-19] MEDS: TRANEXAMIC ACID 1,000 MG/10 ML AMPUL 1000 MG IV PUSH (08:43)
--- NOTE | 2024-08-19 09:01 | P.OP_ITS ---
Procedure Note - Detailed Date of Procedure 08/19/24 Pre-op Diagnosis Osteoarthritis LEFT knee Post-op Diagnosis Same Procedure Performed LEFT Total Knee arthroplasty Surgeon Rupert Rico MD Anesthesia General Indications Pain and Arthritis Description of Procedure The patient was brought to operating room #7. A general anesthetic was administered. Placed on the operating table and sterilely prepped and draped in usual manner. A longitudinal incision was made. Tourniquet inflated to 300 mmHg for a total of 44 minutes. Dissection was carried down to the fascia. Medial parapatellar incision was made and the patella subluxated laterally. P atella cut from 20 to 14 mm. The tibia was cut perpendicular to the long axis and femur cut in 5 degrees of valgus. The components were trialed and the knee was noted to be stable with excellent motion. The soft tissues balanced, hemostasis obtained. All [address], 63 tibia, 60 femur, 34 mm patella, and 10 mm poly. Motion was 0-125 degrees with good stability in both flexion and extension. The wound was closed with #2 Vicryl, 2-0 Vicryl and mary jane. [employer] Estimated Blood Loss 200 Drains No Packing No Pathology None sent Complications No immediate complications Condition Stable Disposition PACU [facility] Billing Surgery - Charge Forward: Surgery Billing ([id number] TKA)
[2024-08-19] MEDS: fentaNYL CITRATE INJ (*CRX) 100 MCG/2 ML VIAL 25 MCG IV PUSH ×8 (09:40→10:23)
--- NOTE | 2024-08-19 10:53 | ADMGEN ---
This patient, Manda Chavez, was admitted to -. Patient/family oriented to hospital policies and general routines including ID bracelet, bed and alarms, visiting hours, pain management, procedures, bathroom and other care routines, personal items, smoking policy, room service/diet, and visiting hours. Information on how to activate the Rapid Response Team has been discussed. Patient/Family are encouraged to report perceived risks to care and to ask questions if they do not understand what they are told or what they should do.
[2024-08-19] MEDS: HYDROcodone/acetaminophen (*CRX) 7.5-325 MG TABLET 1 TAB PO ×3 (11:37→20:26)
[2024-08-19] MEDS: SENNA/DOCUSATE SODIUM TABLET 2 TAB PO (16:11)
--- NOTE | 2024-08-19 18:25 | PCRCNOTE ---
Incentive spirometer given to RN and will instruct patient.
--- NOTE | 2024-08-19 18:47 | PM.IMCN ---
Assessment and Plan Assessment and plan (1) Osteoarthritis of knees, bilateral: Qualifiers: Osteoarthritis type: primary Qualified Code(s): M17.0 - Bilateral primary osteoarthritis of knee Code(s): M17.0 - Bilateral primary osteoarthritis of knee Status: Acute Assessment and Plan: Total left knee arthroplasty done on 08/19 with Jacky AYERS. Primary management through orthopedic team. - ambulate with assistance and up to chair - use IS - neurovasc checks - see order for intervals - SCDs and TEDs - analgesics and antiemetics p.r.n. - monitor labs in AM - CBC and BMP - bowel regimen: docusate/senna, polyethylene glycol - maintenance fluids: NS 125 mL/hr x8 hrs - PT/OT (2) Hypothyroidism: Qualifiers: Hypothyroidism type: unspecified Qualified Code(s): E03.9 - Hypothyroidism, unspecified Code(s): E03.9 - Hypothyroidism, unspecified Status: Chronic Assessment and Plan: - continue home medication: Levothyroxine 125 mcg daily - TSH within normal limits on 07/28/2024 (3) HTN (hypertension): Qualifiers: Hypertension type: primary hypertension Qualified Code(s): I10 - Essential (primary) hypertension Code(s): I10 - Essential (primary) hypertension Status: Chronic Assessment and Plan: - chronic, currently 148/88 - continue home medications:Losartan 50 mg daily - monitor Plan Diet: regular GI Prophylaxis: not currently indicated DVT Prophylaxis: SCDs, TEDs IV fluids: NS at 125 mL/hour x8 hours Lines/Tubes: peripheral IV Code Status: full code HPI Date of Consult Consult date: 08/19/24 Requesting Physician: Rupert Rico MD Primary Care Provider: Lucas Thomas MD Consult Narrative Reason for consult: medical management Narrative: 63 y/o F presents here for a left total knee arthroplasty with PMH of hypothyroidism, osteoarthritis, and hypertension. The patient presented here for a total left knee arthroplasty. She has a history of cwfy-nw-zxki arthritis to the left knee. She has previously failed conservative treatment including cortisone injections (last done 3 months ago, lasted for only a few weeks and wore off), naproxen, etc.. Pain now causing difficulty with her daily activities (ambulating, stairs, etc.). Due to these factors she elected to move forward with surgical management. Postoperatively she reports pain is moderate, no nausea or vomiting. She denies any recent changes to her home medications or medical history. Preop VS: 99? F, HR 80, R 18, 138/94, and 98% on RA. Preop workup: No leukocytosis, no anemia, no significant electrolyte derangements, creatinine 0.8 and GFR 83, A1c 6.1% on 06/24/2024, TSH within normal limits on 07/28/2024. Review of Systems Review of Systems: All systems reviewed & are unremarkable except as noted in HPI and below PMFSH Past Medical History Medical History REBEKAH (obstructive sleep apnea) does not wear a CPAP Chronic sinusitis Hypothyroidism Hypertension Osteoarthritis Surgical History Surgical History History of right hip replacement 08/26/23 History of endometrial ablation (11/24/11) History of laparoscopy (09/17/11) With adhesiolysis. History of total abdominal hysterectomy and bilateral salpingo-oophorectomy (05/02/17) For uterine prolapse and cervical dysplasia. History of laser assisted in situ keratomileusis History of loop electrical excision procedure (LEEP) (1993) History of arthroscopy of left knee History of nasal surgery History of colposcopy (01/21/17) History of tonsillectomy History of partial thyroidectomy (2002) Right History of foot surgery right x 2 Family History Family History Sibling Diabetes mellitus Family history of seizure disorder Pancreatitis Father Family history of lung cancer, Onset Age: 59 Other Heart disease Mother COPD (chronic obstructive pulmonary disease) Emphysema/COPD Social History Social History Social History: Surrogate medical decision maker: Chicarivas Anthony, sibling. Code status: Full code. Smoking status: Never smoker Second hand tobacco smoke exposure: Yes Additional smoking assessment comments: DENIES ANY FORM OF TOBACCO USE Alcohol intake: current Drinks per week: 2 Alcohol use details: BEER Substance use: current Substance use type: marijuana Other substance usage details: gummie to sleep Do You Feel Safe in your Home?: Yes Lack of Transportation: No Lack of Food: Never True Current Housing: I Have Housing Concerned About Future Housing: No Difficulty Paying Gas/Electric Bills: No Difficulty Paying for Meds: No Currently Unemployed: No Education: Bachelor's Degree Difficulty w/ Childcare or Family Care: No Living arrangements: alone Occupation/Education: occupation 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 Gender identity (if verbalized by the patient): Female Spiritual care concerns: No Meds Home Medications and Allergies Home Medications ?Medication ?Instructions ?Recorded ?Confirmed ?Type omega 2-rfu-vil-fish oil 1,000 mg 1 cap PO DAILY 04/01/20 08/19/24 History (120 mg-180 mg) capsule (Fish Oil) fexofenadine 60 mg tablet (Yolande 60 mg PO QAM 01/30/21 08/19/24 History Allergy) cetirizine 10 mg capsule (Zyrtec) 10 mg PO HS 07/25/23 08/19/24 History cholecalciferol (vitamin D3) 50 100 mcg (2 x 50 mcg (2,000 unit)) 08/13/23 08/19/24 Rx mcg (2,000 unit) capsule PO DAILY #180 caps naproxen 500 mg tablet 500 mg PO BID #180 tabs 02/04/24 08/19/24 Rx levothyroxine 125 mcg tablet 125 mcg PO DAILY #90 tabs 03/16/24 08/19/24 Rx losartan 50 mg tablet See Rx Instructions .Route 07/10/24 08/19/24 Rx .COMPLEX #90 tabs azelastine 137 mcg (0.1 %) nasal 1 spray intranasal .qd-bid PRN 08/04/24 08/19/24 History spray allergy symptoms fluticasone propionate 50 1 spray intranasal BID PRN nasal 08/04/24 08/19/24 History mcg/actuation nasal congestion spray,suspension (Flonase Allergy Relief) tolterodine 2 mg tablet See Rx Instructions .Route 08/18/24 08/19/24 Rx .COMPLEX #180 tabs Allergies Allergy/AdvReac Type Severity Reaction Status Date / Time No Known Allergies Allergy Verified 08/19/24 10:56 Vital Signs Vital Signs - 24 hr 08/19/24 06:20 08/19/24 09:25 08/19/24 09:35 Temperature 98.8 F 97.0 F L Pulse Rate 88 104 H 94 Respiratory Rate 18 12 12 Blood Pressure 133/82 152/85 H 143/84 H Pulse Oximetry 97 98 100 Oxygen Delivery Room Air Simple Face Mask Simple Face Mask Oxygen Flow Rate 8 8 08/19/24 09:45 08/19/24 10:00 08/19/24 10:15 Temperature Pulse Rate 95 100 98 Respiratory Rate 12 20 14 Blood Pressure 144/85 H 145/73 H 128/81 Pulse Oximetry 100 98 99 Oxygen Delivery Simple Face Mask Room Air Nasal Cannula Oxygen Flow Rate 8 2 08/19/24 10:25 08/19/24 10:30 08/19/24 11:00 Temperature Pulse Rate 93 96 95 Respiratory Rate 15 16 14 Blood Pressure 139/96 H 134/90 144/75 H Pulse Oximetry 95 92 96 Oxygen Delivery Nasal Cannula Nasal Cannula Nasal Cannula Oxygen Flow Rate 2 2 3 08/19/24 11:30 08/19/24 12:00 08/19/24 12:30 Temperature Pulse Rate 86 45 L 86 Respiratory Rate 16 Blood Pressure 133/86 134/89 135/83 Pulse Oximetry 99 99 94 Oxygen Delivery Nasal Cannula Nasal Cannula Nasal Cannula Oxygen Flow Rate 3 3 3 08/19/24 12:50 08/19/24 13:10 08/19/24 13:13 Temperature 97.2 F L Pulse Rate 89 82 Respiratory Rate 18 16 Blood Pressure 146/90 H 142/96 H Pulse Oximetry 100 97 96 Oxygen Delivery Nasal Cannula Room Air Oxygen Flow Rate 3 08/19/24 13:28 08/19/24 13:58 08/19/24 14:01 Temperature 97.2 F L 97.0 F L Pulse Rate 82 79 Respiratory Rate 16 16 Blood Pressure 133/70 133/91 H Pulse Oximetry 96 97 Oxygen Delivery Room Air Oxygen Flow Rate 08/19/24 14:58 Temperature 97.0 F L Pulse Rate 90 Respiratory Rate 14 Blood Pressure 148/88 H Pulse Oximetry 97 Oxygen Delivery Oxygen Flow Rate Exam Const: General: comfortable and no acute distress Other: female, nontoxic appearance HENMT: Face/Nose/Sinus: Normal nares present Mouth: Yes moist mucous membranes Eyes: General: appearance normal, both eyes and all related structures Sclera: sclerae normal Pupils: Equal, round and reactive pupils present EOM: EOMs intact bilaterally Resp: Effort & Inspection: normal respiratory effort Auscultation: clear to auscultation bilaterally Cardio: Rate: regular rate Rhythm: regular rhythm Other: S1-S2 present without murmur, rub, ectopy GI: Other: Abdomen soft, nondistended, nontender. Normoactive bowel sounds in all quadrants. Skin: General skin exam: normal color and no rashes or lesions noted Wounds: no wounds Neuro: Speech: normal speech Motor exam (neuro): 5/5 motor strength present throughout Sensory Exam: normal sensation Other: A&O x4 Extrem: General: normal to inspection Psych: Mental Status: mental status grossly normal Affect: normal affect Other: good insight judgment, pleasant Quality VTE Prophylaxis VTE prophylaxis: mechanical ordered Hospitalist [facility] Advance Care Plan I have confirmed that the patient's Advanced Care Plan is present, code status is documented, or surrogate decision maker is listed in patient medical record.: Yes Medication Reconciliation I have utilized all available resources to obtain, update and review the patients current medications (includes all prescriptions, OTC, herbals, cannabis, and nutritional supplements).: Yes
[2024-08-19] MEDS: ASPIRIN 325 MG ENTERIC TABLET PO (20:26)
[2024-08-20] VITALS: BP 116/74; PULSE 92; RESP 17; TEMP 36.4; O2SAT 96
[2024-08-20] MEDS: ceFAZolin 2 GM/D5W 50 ML 2 GM/50 ML BAG IVPB ×2 (00:02→09:53)
[2024-08-20 04:00] VITALS: BP 100/60; PULSE 98; RESP 16; TEMP 36.5; O2SAT 97
[2024-08-20] MEDS: HYDROcodone/acetaminophen (*CRX) 5-325 MG TABLET 1 TAB PO (04:27)
[2024-08-20] MEDS: HYDROcodone/acetaminophen (*CRX) 7.5-325 MG TABLET 1 TAB PO ×2 (04:28)
[2024-08-20 08:00] VITALS: BP 139/79; PULSE 87; RESP 20; TEMP 36.7; O2SAT 100
[2024-08-20 08:01] LABS: Basophils Percent Auto 0.3 % (0.2-1.2); Eosinophils Percent Auto 0.3 % (0-4.4); Hematocrit 39.3 % (37.0-47.0); Hemoglobin 12.3 g/dL (12.0-15.0); Immature Granulocyte Absolute 0.03 K/mm3 (0.00-0.031); Immature Granulocyte Percent A 0.3 % (0-0.5); Lymphocytes Percent Auto 18.2 % (18.3-44.2); Mean Corpuscular HGB Conc 31.3 g/dl (32-36); Mean Corpuscular Volume 86.2 fl (80-100); Mean Platelet Volume 9.5 fl (7.4-10.4); Monocytes Absolute Auto 0.8 K/mm3 (0.1-0.6); Monocytes Percent Auto 9.2 % (2.6-8.5); Neutrophils Absolute Auto 6.3 K/mm3 (1.3-6.7); Neutrophils Percent Auto 71.7 % (45.5-73.1); Platelet Count Result 187 k/mm3 (150-375); Red Blood Count 4.56 M/mm3 (4.2-5.4); Red Cell Distribution Width 13.4 % (11.5-14.5); White Blood Count 8.8 K/mm3 (4.5-10.0)
[2024-08-20 08:06] LABS: Anion Gap 7 mmol/L (4-12); Blood Urea Nitrogen 19 mg/dL (7-17); Calcium 8.7 mg/dL (8.4-10.2); Carbon Dioxide 27 mmol/L (22-30); Chloride 104 mmol/L (98-107); Estimated CRCL calculation 68 ml/min; Estimated Glomerular Filt Rate > 60; Glucose 111 mg/dL (65-110); Potassium 3.8 mmol/L (3.4-5.0); Sodium 138 mmol/L (137-145)
[2024-08-20] MEDS: IBUPROFEN IV 800 MG/200 ML 800 MG/200 ML BAG 400 MG IVPB (08:23)
[2024-08-20] MEDS: ASPIRIN 325 MG ENTERIC TABLET PO (08:24)
[2024-08-20] MEDS: SENNA/DOCUSATE SODIUM TABLET 2 TAB PO (08:25)
--- NOTE | 2024-08-20 08:47 | PM.IMPN ---
Progress Note: A&P Assessment and Plan (1) Osteoarthritis of knees, bilateral: Qualifiers: Osteoarthritis type: primary Qualified Code(s): M17.0 - Bilateral primary osteoarthritis of knee Code(s): M17.0 - Bilateral primary osteoarthritis of knee Status: Acute Assessment and Plan: Total left knee arthroplasty done on 08/19 with Jacky AYERS. Primary management through orthopedic team. - ambulate with assistance and up to chair - use IS - neurovasc checks - see order for intervals - SCDs and TEDs - analgesics and antiemetics p.r.n. - monitor labs in AM - CBC and BMP - bowel regimen: docusate/senna, polyethylene glycol - maintenance fluids: NS 125 mL/hr x8 hrs - PT/OT (2) Hypothyroidism: Qualifiers: Hypothyroidism type: unspecified Qualified Code(s): E03.9 - Hypothyroidism, unspecified Code(s): E03.9 - Hypothyroidism, unspecified Status: Chronic Assessment and Plan: - continue home medication: Levothyroxine 125 mcg daily - TSH within normal limits on 07/28/2024 (3) HTN (hypertension): Qualifiers: Hypertension type: primary hypertension Qualified Code(s): I10 - Essential (primary) hypertension Code(s): I10 - Essential (primary) hypertension Status: Chronic Assessment and Plan: - chronic, currently 139/79 - continue home medications:Losartan 50 mg daily - monitor Plan Diet: regular GI Prophylaxis: not currently indicated DVT Prophylaxis: SCDs, TEDs IV fluids: NS at 125 mL/hour x8 hours Lines/Tubes: peripheral IV Code Status: full code Subjective Date/time seen: 08/20/24 08:47 Interval history: 08/20/24 Patient was sitting in the chair feeling well. She denies any chest pain, shortness a breath dot nausea, vomiting, diarrhea or constipation. Currently patient feels pretty well and is ready to go home. Pain is a 09/01. 08/19/24 63 y/o F presents here for a left total knee arthroplasty with PMH of hypothyroidism, osteoarthritis, and hypertension. The patient presented here for a total left knee arthroplasty. She has a history of xmvi-fj-[id number] arthritis to the left knee. She has previously failed conservative treatment including cortisone injections (last done 3 months ago, lasted for only a few weeks and wore off), naproxen, etc.. Pain now causing difficulty with her daily activities (ambulating, stairs, etc.). Due to these factors she elected to move forward with surgical management. Postoperatively she reports pain is moderate, no nausea or vomiting. She denies any recent changes to her home medications or medical history. Preop VS: 99? F, HR 80, R 18, 138/94, and 98% on RA. Preop workup: No leukocytosis, no anemia, no significant electrolyte derangements, creatinine 0.8 and GFR 83, A1c 6.1% on 06/24/2024, TSH within normal limits on 07/28/2024. Review of Systems Review of Systems: All systems reviewed & are unremarkable except as noted in HPI and below Exam Narrative: General: well-nourished, well-appearing 63-year-old female, sitting up in bed, comfortable, NARD Neuro: awake, alert and oriented x4, speech clear, no focal neuro deficits noted HEENMT: normocephalic, atraumatic, EOMI, sclerae anicteric, moist oral mucosa Respiratory: Clear to auscultation bilaterally without crackles, rhonchi or wheezes, nonlabored breathing Cardio: regular rate, regular rhythm with S1-S2 Abdomen: nondistended, normoactive bowel sounds, soft, nontender to palpation Extremities: no edema, erythema, or tenderness to palpation, DP pulses 2+ bilaterally Skin: no rashes or lesions, warm and dry Psych: appropriate mood and affect, judgment and insight intact Objective Data Vital Signs Vital Signs: Vital Signs - 24 hr 08/19/24 09:25 08/19/24 09:35 08/19/24 09:45 Temperature 97.0 F L Pulse Rate 104 H 94 95 Respiratory Rate 12 12 12 Blood Pressure 152/85 H 143/84 H 144/85 H Pulse Oximetry 98 100 100 Oxygen Delivery Simple Face Mask Simple Face Mask Simple Face Mask Oxygen Flow Rate 8 8 8 08/19/24 10:00 08/19/24 10:15 08/19/24 10:25 Temperature Pulse Rate 100 98 93 Respiratory Rate 20 14 15 Blood Pressure 145/73 H 128/81 139/96 H Pulse Oximetry 98 99 95 Oxygen Delivery Room Air Nasal Cannula Nasal Cannula Oxygen Flow Rate 2 2 08/19/24 10:30 08/19/24 11:00 08/19/24 11:30 Temperature Pulse Rate 96 95 86 Respiratory Rate 16 14 16 Blood Pressure 134/90 144/75 H 133/86 Pulse Oximetry 92 96 99 Oxygen Delivery Nasal Cannula Nasal Cannula Nasal Cannula Oxygen Flow Rate 2 3 3 08/19/24 12:00 08/19/24 12:30 08/19/24 12:50 Temperature Pulse Rate 45 L 86 89 Respiratory Rate 18 Blood Pressure 134/89 135/83 146/90 H Pulse Oximetry 99 94 100 Oxygen Delivery Nasal Cannula Nasal Cannula Nasal Cannula Oxygen Flow Rate 3 3 3 08/19/24 13:10 08/19/24 13:13 08/19/24 13:28 Temperature 97.2 F L 97.2 F L Pulse Rate 82 82 Respiratory Rate 16 16 Blood Pressure 142/96 H 133/70 Pulse Oximetry 97 96 96 Oxygen Delivery Room Air Oxygen Flow Rate 08/19/24 13:58 08/19/24 14:01 08/19/24 14:58 Temperature 97.0 F L 97.0 F L Pulse Rate 79 90 Respiratory Rate 16 14 Blood Pressure 133/91 H 148/88 H Pulse Oximetry 97 97 Oxygen Delivery Room Air Oxygen Flow Rate 08/19/24 20:00 08/19/24 21:32 08/20/24 00:00 Temperature 97.6 F 97.5 F L Pulse Rate 82 92 Respiratory Rate 13 17 Blood Pressure 129/70 116/74 Pulse Oximetry 98 96 Oxygen Delivery Room Air Oxygen Flow Rate 08/20/24 04:00 Temperature 97.7 F Pulse Rate 98 Respiratory Rate 16 Blood Pressure 100/60 Pulse Oximetry 97 Oxygen Delivery Oxygen Flow Rate Intake/Output Intake/Output: Intake & Output 08/17/24 08/18/24 08/19/24 08/20/24 23:59 23:59 23:59 23:59 Intake Total 2180 430 Balance 2180 430 Meds/Results Medications: Active Medications Generic Name Dose Route Start Last Admin Trade Name Freq PRN Reason Stop Dose Admin Hydrocodone Bitart/Acetaminophen 1 tab 08/19/24 10:48 08/20/24 04:28 Hydrocodone/Acetaminophen (*Crx) 7.5-325 Mg Tablet PO 1 tab Q4H PRN Administration Pain Rated 7-10 Hydrocodone Bitart/Acetaminophen 1 tab 08/19/24 13:01 08/20/24 04:27 Hydrocodone/Acetaminophen (*Crx) 5-325 Mg Tablet PO 1 tab Q4H PRN Administration Pain Rated 4-6 Aspirin 325 mg 08/19/24 21:00 08/20/24 08:24 Aspirin 325 Mg Enteric Tablet PO 325 mg Q12HR FERMIN Administration Celecoxib 200 mg 08/19/24 17:00 08/20/24 08:30 Celecoxib 200 Mg Capsule PO Not Given BIDWM FERMIN Diphenhydramine HCl 25 mg 08/19/24 13:01 Diphenhydramine Hcl Inj 50 Mg/Ml Vial IV PUSH Q6H PRN Itching Hydromorphone HCl 1 mg 08/19/24 13:06 Hydromorphone Hcl Inj (*Crx) 2 Mg/Ml Vial IV PUSH Q2H PRN Breakthrough Pain Rated 7-10 or NPO Hydromorphone HCl 0.5 mg 08/19/24 13:06 Hydromorphone Hcl Inj (*Crx) 2 Mg/Ml Vial IV PUSH Q2H PRN Breakthrough Pain Rated 4-6 or NPO Ibuprofen 800 mg in 200 mls @ 400 mls/hr 08/19/24 13:01 08/20/24 08:23 Caldolor 800 Mg/200 Ml IVPB 400 mls/hr Q6H PRN Administration Breakthrough Pain Rated 1-3 or NPO Levothyroxine Sodium 125 mcg 08/20/24 06:30 08/20/24 01:12 Levothyroxine Sodium 125 Mcg Tablet PO Not Given DAILY@0630 [facility] Losartan Potassium 50 mg 08/20/24 09:00 08/20/24 08:30 Losartan Potassium 50 Mg Tablet PO Not Given DAILY [facility] Naloxone HCl 0.1 mg 08/19/24 13:01 Naloxone Hcl 0.4 Mg/Ml Vial IV PUSH Q2M PRN Opiate Reversal Ondansetron HCl 4 mg 08/19/24 13:01 Ondansetron Inj 4 Mg/2 Ml Vial IV PUSH Q4H PRN Nausea And Vomiting Polyethylene Glycol 17 gm 08/20/24 09:00 08/20/24 08:30 Polyethylene Glycol 3350 17 Gm Powd.Pack PO Not Given QAM [facility] Senna/Docusate Sodium 2 tab 08/19/24 17:00 08/20/24 08:25 Senna/Docusate Sodium Tablet PO 2 tab BID FERMIN Administration Tolterodine Tartrate 2 mg 08/19/24 21:00 08/20/24 08:30 Tolterodine Tartrate 2 Mg Tablet PO Not Given Q12HR FERMIN Tramadol HCl 50 mg 08/19/24 13:01 Tramadol Hcl (*Crx) 50 Mg Tablet PO Q4H PRN Pain Rated 1-3 Radiology Results: ITS Impressions Knee X-Ray 08/19/24 09:50 IMPRESSION: 1. Recent left total knee arthroplasty. Labs Labs: Laboratory Results - last 24 hr 08/20/24 07:26 WBC 8.8 RBC 4.56 Hgb 12.3 Hct 39.3 MCV 86.2 MCH 27.0 MCHC 31.3 L RDW 13.4 Plt Count 187 MPV 9.5 Immature Gran % (Auto) 0.3 Neut % (Auto) 71.7 Lymph % (Auto) 18.2 L [place] % (Auto) 9.2 H Eos % (Auto) 0.3 Baso % (Auto) 0.3 Lymph # (Auto) 1.60 [place] # (Auto) 0.8 H Eos # (Auto) 0.0 Baso # (Auto) 0.0 Abs Immat Gran (auto) 0.03 Absolute Neuts (auto) 6.3 Absolute Nucleated RBC 0.000 Nucleated RBC % 0.0 Sodium 138 Potassium 3.8 Chloride 104 Carbon Dioxide 27 Anion Gap 7 BUN 19 H Creatinine 0.90 Estim Creat Clear Calc 68 Estimated GFR > 60 Glucose 111 H Calcium 8.7 Quality VTE Prophylaxis VTE prophylaxis: mechanical ordered
== END 2024-08-20 11:40 | disposition home or self-care (01) ==
LOC: ANHSURGERY 05:46 → ANH3MEDSUR 13:02
PROVIDERS: PCP Emergency Medicine; Visit Provider Orthopaedic Surgery
PROC: (CPT 27447; principal; 2024-08-19 07:30)
DX: M17.12 Unilateral primary osteoarthritis, left knee (principal); G89.18 Other acute postprocedural pain; E03.9 Hypothyroidism, unspecified; I10 Essential (primary) hypertension; F12.90 Cannabis use, unspecified, uncomplicated; E66.9 Obesity, unspecified; Z68.35 Body mass index [BMI] 35.0-35.9, adult
CPT/HCPCS: 27447; 64447; 36415; 73560; 80048; 85025; 86850; 86900; 86901; 97110; 97116; 97161; 97165; 97530; 97535; A9270; C1713; C1776; J0171; J0690; J1100; J1171; J1741; J1885; J2003; J2250; J2270; J2371; J2405; J2704; J2795; J3010; J3370; J7120

== ENCOUNTER 2024-10-24 16:31 | Emergency (ER) | payer BC, SELFPAY ==
--- NOTE | ~2024-10-24 | XR_ITS ---
EXAM: XR forearm LT 2V, XR forearm RT 2V DATE: 10/24/2024 17:14 HISTORY: fall, pain . COMPARISON: None available. FINDINGS: Normal mineralization. Chronic appearing ossific fragment in the dorsal right wrist as can be seen with old triquetral fracture. Possible cortical irregularity of the left radial head. Left e lbow joint effusion. No lytic or blastic lesion. Joint spaces are maintained. No erosion or periostea l change. Soft tissues within normal limits. IMPRESSION: Possible left radial head fracture with left elbow joint effusion. Recommend dedicated radiographs of the elbow. No acute osseous finding in the right forearm. Reviewed, dictated and finalized at location K. IMPRESSION: Possible left radial head fracture with left elbow joint effusion. Recommend de dicated radiographs of the elbow. No acute osseous finding in the right forearm.
--- NOTE | ~2024-10-24 | XR_ITS ---
EXAM: XR elbow LT min 3V DATE: 10/24/2024 17:58 HISTORY: fall, possible radial head fx . COMPARISON: X-ray left forearm, same date. FINDINGS: Normal mineralization. Small cortical regularity along the anteromedial aspect of the radi al head. No lytic or blastic lesion. Joint spaces are maintained. No erosion or periosteal change. La rge elbow joint effusion. Soft tissues within normal limits. IMPRESSION: Elbow joint effusion which may indicate the presence of occult fracture, likely radial he ad in a patient of this age. No overt radial head fracture, however there is cortical irregularity al penny the anteromedial aspect of the radial head that may represent a small acute fracture fragment krista mandy degenerative change. Reviewed, dictated and finalized at location K. IMPRESSION: Elbow joint effusion which may indicate the presence of occult frac ture, likely radial head in a patient of this age. No overt radial head fractur e, however there is cortical irregularity along the anteromedial aspect of the radial head that may represent a small acute fracture fragment versus degenerat rikki change.
--- OUTSIDE RECORDS SUMMARY | 2024-10-24 16:33 | XMS_ITS | Referral Summary ---
Author Organization [facility] Address [address] [place] [id number] Care Team Providers Care Museum Exhibit Designer Name Role Phone Lucas Thomas MD Primary [...] 1 tablet (137 mcg total) by mouth regional merchandising manager before breakfast 3 Active losartan (COZAAR) 50 mg tabletIndications :hypertension Take 1 tablet (50 mg total) by mouth regional merchandising manager before breakfast 3 Active tolterodine (DETROL) 2 [...] 1 tablet (180 mg total) by mouth regional merchandising manager before breakfast Active cetirizine (ZyrTEC) 10 mg tabletIndications :Perennial Allergic Rhinitis,Seasonal Allergic Rhinitis Take 1 tablet (10 mg total) by mouth regional merchandising manager before breakfast Active cannabidiol, CBD, (EPIDIOLEX) 100 mg/mL solutionIndicatio ns:sleep Take 5 mg/kg by mouth nightly as needed (sleep) Active docosahexaenoic acid/epa (FISH OIL ORAL)Indications: supplement Take 1 tablet by mouth regional merchandising manager before breakfast Active aspirin 500 mg tablet Take 1 tablet (500 mg total) by mouth every 6 (six) hours as needed for pain or headaches Active sod kpalx-htfnky-jukj ez bottle 2,300-700 mg kit Administer 1 [...] on file Legal Sex Female 2:03 AM SKEINER Gender Identity Not on file Sexual Orientation [...] 97.5 kg (215 lb) 05/24/2023 11:00 AM SKEINER Height 170.2 cm (5' 7) 05/24/2023 11:00 AM SKEINER Body Mass Index 33.67 05/24/2023 11:00 AM SKEINER Plan of Treatment Not on file [place] Care Teams Museum Exhibit Designer Relationship Specialty Start Date End Date Lucas Thomas MD [address] [place] [address] PCP - General Emergency Medicine 04/23/23
--- OUTSIDE RECORDS SUMMARY | 2024-10-24 16:33 | XMS_ITS | Clinical Summary ---
Author Organization [facility] Address [address] [place] [id number] Care Team Providers Care Teaching Manager Name Role Phone Lucas Thomas MD [...] 1 tablet (137 mcg total) by mouth adjunct spanish instructor before breakfast 3 Active losartan (COZAAR) 50 mg tabletIndications :hypertension Take 1 tablet (50 mg total) by mouth adjunct spanish instructor before breakfast 3 Active tolterodine (DETROL) 2 [...] 1 tablet (180 mg total) by mouth adjunct spanish instructor before breakfast Active cetirizine (ZyrTEC) 10 mg tabletIndications :Perennial Allergic Rhinitis,Seasonal Allergic Rhinitis Take 1 tablet (10 mg total) by mouth adjunct spanish instructor before breakfast Active cannabidiol, CBD, (EPIDIOLEX) 100 mg/mL solutionIndicatio ns:sleep Take 5 mg/kg by mouth nightly as needed (sleep) Active docosahexaenoic acid/epa (FISH OIL ORAL)Indications: supplement Take 1 tablet by mouth adjunct spanish instructor before breakfast Active aspirin 500 mg tablet Take 1 tablet (500 mg total) by mouth every 6 (six) hours as needed for pain or headaches Active sod dgrza-mucwed-emrl ez bottle 2,300-700 mg kit Administer 1 [...] on file Legal Sex Female 2:03 AM 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 TEST ENGINE 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 Gender Identity Not on file Sexual Orientation [...] 97.5 kg (215 lb) 05/24/2023 11:00 AM RESEARCH TEST ENGINE EVALUATOR Height 170.2 cm (5' 7) 05/24/2023 11:00 AM RESEARCH TEST ENGINE EVALUATOR Body Mass Index 33.67 05/24/2023 11:00 AM RESEARCH TEST ENGINE EVALUATOR Plan of Treatment Health Maintenance Due Date Last Done Comments Breast Cancer Screening-Mammogram 1961 Colon Cancer Screening-Colonoscopy 1961 Depression Screening 1961 Hepatitis C Screening 1961 Hepatitis B Screening 12/13/1979 Regular Well Visit/Exam 18-64 12/13/1979 Pneumococcal vaccine <65 (1 of 2 - PCV) 1980 Covid-19 Vaccine (2023-2 5 season) 2023 12/16/2022, 12/13/2021, 06/24/2021, Additional history exists Influenza Vaccine (#1) 2024 , 12/13/2021, 12/02/2020, Additional history exists DTaP/Tdap/Td Vaccine (3 - Td or Tdap) 12/28/2026 12/28/2016, 04/21/2012 Zoster Vaccine Completed 02/20/2020, 12/22/2019 Insurance [place] Member Subscriber Plan / Payer (Ef fective 2023-Present) Name:Kathy Manda D Relation to Subscriber:Self Name:Manda Chavez Lakisha Payer ID:[id number] (NAIC) Type:HEALTHCARE/EXCHANGE Address: [place] [id number] [place] Care Teams Teaching Manager Relationship Specialty Start Date End Date Lucas Thomas MD [address] [place] [address] PCP - General Emergency Medicine 04/23/23
--- OUTSIDE RECORDS SUMMARY | 2024-10-24 16:33 | XMS_ITS | Continuity of Care Document ---
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, tel:[phone] [facility] Impingement syndrome of right shoulder 7 Ivonne Carlson. [address], [place], [place], [id number]. tel:[phone] OFFICE/OUTPA TIENT VISIT EST [facility], [address], [place], [place], [facility], tel:[phone] [facility] Rotator cuff impingement syndrome of left shoulderImping ement syndrome of right shoulder 7 Ivonne Carlson. [address], [place], [place], [id number]. tel:[phone] OFFICE/OUTPA TIENT VISIT [facility], [address], [address], tel:[phone] [facility] Right rotator cuff tendonitis 1 7 Ivonne Carlson. [address], [place], [place], [id number]. tel:[phone] [facility], [address] [place] [address], [address], [place] tel:[phone] [facility] Knee pain, right Apr-3 0-201 4 Zelda Kelsy. [address] [place] [address], [place], [place], [id number]. tel:[phone] OFFICE/OUTPA TIENT VISIT [facility], [address], [address], [place] tel:[phone] [facility] Knee pain, right May- 0-201 4 Zelda Kelsy. [address] [address], [place], [place], [id number]. tel:[phone] OFFICE/OUTPA TIENT VISIT [facility], [address], [address], [place] tel:[phone] [facility] Bakers cyst 7 4 Tru Gomez. [address] [place] [address], [id number]. tel:[phone] Family History Family Member Type Diagnosis Age At Onset Mother Problem (finding) Alive and well Payers Payer name Insurance type Covered alliance party ID Zulay fam(s) Blue Access PPO E2 OT [id number] Social History Type Description Quantity Date Captured [...] Assessment Date assessment Impingement syndrome of right [facility] Patient Care Teams Name Effective Dates (start - stop) Status Members No Information
--- OUTSIDE RECORDS SUMMARY | 2024-10-24 16:33 | XMS_ITS | Clinical Summary ---
Author Organization [facility] Care Team Providers Care Calendering Machine Operator Name Role Phone Unavailable Primary Care Provider Unavailabl e Social History Tobacco Use Types Packs/Day Years Used Date Smoking Tobacco: Never Assessed Comments Unknown Sex and Gender Information Value Date Recorded Sex Assigned at Not on file Legal Sex Female 8:[address] Gender Identity Not on file Sexual Orientation Not on file Plan of Treatment Health Maintenance Due Date Last Done Comments Hepatitis C Virus (HCV) Screening 1961 Pap Smear 1982 Cervical Cancer Screening (CCS) 12/13/1991 HPV/Cotest 12/13/1991 Cologuard 2006 Colonoscopy 2006 Colorectal Cancer Screening 2006 Immunochemical Fecal Occult Blood 2006 Pneumococcal Immunization (50+ years) (1 of 1 - PCV) 12/13/2011 SARS-COV-2 Immunization ( - 2023- season) 2023 Influenza Immunization (#1) 11/23/202411/24, 01/02/2019, 01/01/2018, Additional history exists Respiratory Syncytial Virus (RSV) Immunization (Adult) (1 - 1-dose 75+ series) 2036 DTaP/Tdap/Td Immunization Discontinued 12/28/2016, TdaP Immunization Completed 12/28/2016, 04/21/2012 Zoster Immunization Completed 02/20/2020, 0 Hepatitis B Immunization Aged Out No longer eligible based on patient's age to complete this topic Human Papillomavirus (HPV) Immunization Aged Out No longer eligible based on patient's age to complete this topic Meningococcal Immunization (ACWY) Aged Out No longer eligible based on patient's age to complete this topic Rotavirus Immunization Aged Out No lo nger eligible based on patient's age to complete this topic
--- OUTSIDE RECORDS SUMMARY | 2024-10-24 16:33 | XMS_ITS | Patient Health Record ---
Author Organization [facility] Address [address] [place], [place] [id number] Care Team Providers Care Command And Control Systems Integrator Name Role Phone LUIS CERVANTES Unavailable [phone] Lucas Thomas Unavailable Unavailable Reason For Referral No Information Medications Medication SIG (Take, Route, Frequency, Duration) Notes Start Date End Date Status levothyroxine sodium 0.125 MG Oral Tablet ORAL levothyroxine sodium 0.125 MG Oral TabletOriginal Medicationlevothyroxine sodium 0.125 MG Oral Tablet *Reorder from Food[employer]an for eRx and Interaction Alerts* 6 Active Meloxicam 7.5 MG Oral Tablet ORAL meloxicam 7.5 MG Oral TabletOriginal Medicationmeloxicam 7.5 MG Oral Tablet *Reorder from Medispan for eRx and Interaction Alerts* 6 Active Plan Of Treatment No Information Insurance Providers Payer Name Payer Address Payer Phone Subscriber Number Group Number Insured Name Patient Relationship to Insured Coverage Start Date Coverage End Date [facility] [address] [place], [place] [id number] 1 WILY DESIR Spouse - patient is the spouse of the insured
[2024-10-24 16:38] VITALS: BP 160/85; PULSE 87; RESP 16; TEMP 36.3; O2SAT 99
--- NOTE | 2024-10-24 17:21 | ED.UPPEXIN ---
HPI - Extremity Injury (Upper) General Chief Complaint: Extremity Injury, Upper Stated Complaint: Pain bilateral arms after falling forward Time Seen by Provider: 10/24/24 16:43 Source: patient Mode of arrival: ambulatory Limitations: no limitations History of Present Illness HPI narrative: Patient is a 63-year-old female who presents the ED with report of bilateral forearm pain. Patient reports she was walking in her neighborhood this morning when she tripped and fell. She attempted to catch herself with both arms. Complains of pain to bilateral forearms. States she has had difficulty raising her forearms above her head due to the pain. Denies pain in her shoulders. Denies head injury, LOC. She did scrape her left knee and reports a recent left knee replacement, however denies any pain within the left knee. Has been ambulatory without issue. Denies numbness. Related Data Home Medications ?Medication ?Instructions ?Recorded ?Confirmed ?Last Taken ?Type omega 4-dhf-sfs-fish oil 1,000 mg 1 cap PO DAILY 04/01/20 10/01/24 08/16/24 History (120 mg-180 mg) capsule (Fish Oil) fexofenadine 60 mg tablet (Yolande 60 mg PO QAM 01/30/21 10/01/24 08/18/24 History Allergy) cetirizine 10 mg capsule (Zyrtec) 10 mg PO HS 07/25/23 10/01/24 08/18/24 History azelastine 137 mcg (0.1 %) nasal 1 spray intranasal .qd-bid PRN 08/04/24 10/01/24 Unknown History spray allergy symptoms fluticasone propionate 50 1 spray intranasal BID PRN nasal 08/04/24 10/01/24 Unknown History mcg/actuation nasal congestion spray,suspension (Flonase Allergy Relief) Allergies Allergy/AdvReac Type Severity Reaction Status Date / Time No Known Allergies Allergy Verified 10/24/24 16:32 Review of Systems Review of Systems: All systems reviewed & are unremarkable except as noted in HPI. All systems reviewed & are unremarkable except as noted in HPI and below PMFSH Past Medical History Medical History REBEKAH (obstructive sleep apnea) does not wear a CPAP Chronic sinusitis Hypothyroidism Hypertension Osteoarthritis Surgical History Surgical History History of right hip replacement 08/26/23 History of endometrial ablation (11/24/11) History of laparoscopy (09/17/11) With adhesiolysis. History of total abdominal hysterectomy and bilateral salpingo-oophorectomy (05/02/17) For uterine prolapse and cervical dysplasia. History of laser assisted in situ keratomileusis History of loop electrical excision procedure (LEEP) (1993) History of arthroscopy of left knee History of nasal surgery History of colposcopy (01/21/17) History of tonsillectomy History of partial thyroidectomy (2002) Right History of foot surgery right x 2 Family History Family History Sibling Diabetes mellitus Family history of seizure disorder Pancreatitis Father Family history of lung cancer, Onset Age: 59 Other Heart disease Mother COPD (chronic obstructive pulmonary disease) Emphysema/COPD Social History Social History Social History: Surrogate medical decision maker: Chica Anthony, sibling. Code status: Full code. Smoking status: Never smoker Second hand tobacco smoke exposure: Yes Additional smoking assessment comments: DENIES ANY FORM OF TOBACCO USE Alcohol intake: current Drinks per week: 2 Alcohol use details: BEER Substance use: current Substance use type: marijuana Other substance usage details: gummie to sleep Do You Feel Safe in your Home?: Yes Lack of Transportation: No Lack of Food: Never True Current Housing: I Have Housing Concerned About Future Housing: No Difficulty Paying Gas/Electric Bills: No Difficulty Paying for Meds: No Currently Unemployed: No Education: Bachelor's Degree Difficulty w/ Childcare or Family Care: No Living arrangements: alone Occupation/Education: occupation 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 Gender identity (if verbalized by the patient): Female Spiritual care concerns: No Exam Narrative: GENERAL: Well appearing, obese with BMI of 34.5, non-toxic, in no acute distress. HEAD: Normocephalic, atraumatic. RESPIRATORY: Airway patent, respirations nonlabored. Clear to auscultation bilaterally, no rales, rhonchi, wheezing. CARDIOVASCULAR: Regular rate and rhythm without murmurs, rubs, or gallops. Radial pulses strong and intact. MUSCULOSKELETAL: Moves all extremities. No gross deformities. Mild diffuse tenderness throughout bilateral for regions. No significant bony tenderness over distal radius/ulna bilaterally. No significant bony tenderness over elbows bilaterally. No significant tenderness over shoulders bilaterally. Strong salesperson pianos and organs strength bilaterally. Sensation intact throughout extremity. Recent healing midline anterior L knee scar without evidence of dehiscence or signs of infection. Small overlying abrasion without active bleeding. No significant tenderness throughout left knee. SKIN: Warm, dry, normal color. NEURO: A&O X3. Speech clear. Steady gait. No ataxic movements. PSYCHIATRIC: Appropriate mood and affect. Normal interaction. Course Vital Signs Vital signs: Vital Signs Temperature 97.3 F L 10/24/24 16:38 Pulse Rate 87 10/24/24 16:38 Respiratory Rate 16 10/24/24 16:38 Blood Pressure 160/85 H 10/24/24 16:38 Pulse Oximetry 99 10/24/24 16:38 Temperature 97.3 F L 10/24/24 16:38 Pulse Rate 87 10/24/24 16:38 Respiratory Rate 16 10/24/24 16:38 Blood Pressure 160/85 H 10/24/24 16:38 Pulse Oximetry 99 10/24/24 16:38 MDM - Extremity Injury (Upper) MDM Narrative Medical decision making narrative: Patient?s injury is consistent with musculoskeletal etiology. No signs of neurologic or vascular compromise on physical examination. Compartments are soft without signs of compartment syndrome. XR of bilateral forearms without evidence of obvious fracture. Did show possible left radial head fracture with left elbow joint effusion. Dedicated left elbow x-ray showing joint effusion, no obvious fracture, but cannot rule out possibility of small avulsion fracture. Discussed imaging findings with patient. Patient placed in arm sling for comfort and support. Advised pain control, ice, rice therapy. Recommended follow-up with Orthopedics. She sees Dr. Rico on Saturday as a follow-up for her left knee replacement. Advised to discuss this left elbow pain. Otherwise safe for discharge. Given return precautions. She agrees with plan. Discharged in stable condition. Medical Records Attestation: I reviewed the patient's medical records. Imaging Data Attestation: I personally reviewed and interpreted this imaging study as follows: Radiologist's impression: ITS Impressions Forearm X-Ray 10/24/24 17:33 IMPRESSION: Possible left radial head fracture with left elbow joint effusion. Recommend dedicated radiographs of the elbow. No acute osseous finding in the right forearm. Forearm X-Ray 10/24/24 17:33 IMPRESSION: Possible left radial head fracture with left elbow joint effusion. Recommend dedicated radiographs of the elbow. No acute osseous finding in the right forearm. Elbow X-Ray 10/24/24 18:00 IMPRESSION: Elbow joint effusion which may indicate the presence of occult fracture, likely radial head in a patient of this age. No overt radial head fracture, however there is cortical irregularity along the anteromedial aspect of the radial head that may represent a small acute fracture fragment versus degenerative change. Discharge Plan Discharge Clinical Impression: Fall from ground level, Effusion of elbow joint, left, Pain in both forearms Patient Disposition: Home Condition: Stable Instructions: Antibiotic Form, Elbow Fracture (ED), How to Use a Sling (ED), Arm Pain (ED), Elbow Strain (ED) Additional Instructions: Use sling for comfort and support. Recommend Tylenol and ibuprofen around the clock as needed for pain. Recommend frequent icing to elbow. Scotrun as needed for more severe pain. Follow-up with orthopedics for further evaluation if needed. Return to the ED if you experience worsening or severe pain, recurrent fall or injury, numbness, or any other symptoms of concern. Patient Language: Lao Prescriptions: New hydrocodone-acetaminophen 5-325 mg tablet 1 tablet PO Q6H PRN (Reason: pain) Qty: 7 0RF No Action fexofenadine [Yolande Allergy] 60 mg tablet 60 mg PO QAM Patient Comments: TAKES 180 MG Zyrtec 10 mg capsule 10 mg PO HS fluticasone propionate [Flonase Allergy Relief] 50 mcg/actuation spray,suspension 1 spray intranasal BID PRN (Reason: nasal congestion) Rx Instructions: administer into each nostril azelastine 137 mcg (0.1 %) spray,non-aerosol 1 spray intranasal .qd-bid PRN (Reason: allergy symptoms) Rx Instructions: administer into each nostril. Aim back/up/out omega 3-hht-ihg-fish oil [Fish Oil] 1,000 mg (120 mg-180 mg) Capsule 1 cap PO DAILY cholecalciferol (vitamin D3) 50 mcg (2,000 unit) capsule 100 mcg PO DAILY Qty: 180 2RF losartan 50 mg tablet See Rx Instructions .ROUTE .COMPLEX Qty: 90 2RF Dose Instruction: TAKE 1 TABLET BY MOUTH DAILY Rx Instructions: TAKE 1 TABLET BY MOUTH DAILY levothyroxine 125 mcg tablet See Rx Instructions .ROUTE .COMPLEX Qty: 90 2RF Dose Instruction: TAKE 1 TABLET BY MOUTH DAILY Rx Instructions: TAKE 1 TABLET BY MOUTH DAILY Follow-up/Referrals: Rupert Rico MD [Physician] - (ORTHOPEDICS) Lucas Thomas MD [Primary Care Provider] - Time of Disposition: 18:26
--- OUTSIDE RECORDS SUMMARY | 2024-10-24 17:26 | XMS_ITS | Referral Summary ---
Author Organization [facility] Address [address] [place] [phone] Care Team Providers Care Clinic Specialist Name Role Phone Lucas Thomas MD Primary [...] 1 tablet (137 mcg total) by mouth home energy auditor before breakfast 3 Active losartan (COZAAR) 50 mg tabletIndications :hypertension Take 1 tablet (50 mg total) by mouth home energy auditor before breakfast 3 Active tolterodine (DETROL) 2 [...] 1 tablet (180 mg total) by mouth home energy auditor before breakfast Active cetirizine (ZyrTEC) 10 mg tabletIndications :Perennial Allergic Rhinitis,Seasonal Allergic Rhinitis Take 1 tablet (10 mg total) by mouth home energy auditor before breakfast Active cannabidiol, CBD, (EPIDIOLEX) 100 mg/mL solutionIndicatio ns:sleep Take 5 mg/kg by mouth nightly as needed (sleep) Active docosahexaenoic acid/epa (FISH OIL ORAL)Indications: supplement Take 1 tablet by mouth home energy auditor before breakfast Active aspirin 500 mg tablet Take 1 tablet (500 mg total) by mouth every 6 (six) hours as needed for pain or headaches Active sod oqsfl-bewbpe-lmct ez bottle 2,300-700 mg kit Administer 1 [...] on file Legal Sex Female 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
--- OUTSIDE RECORDS SUMMARY | 2024-10-24 17:26 | XMS_ITS | Clinical Summary ---
Author Organization [facility] Address [address] [place] [phone] Care Team Providers Care Tag Machine Operator Name Role Phone Lucas Thomas MD Primary [...] 1 tablet (137 mcg total) by mouth seismograph recorder before breakfast 3 Active losartan (COZAAR) 50 mg tabletIndications :hypertension Take 1 tablet (50 mg total) by mouth seismograph recorder before breakfast 3 Active tolterodine (DETROL) 2 [...] 1 tablet (180 mg total) by mouth seismograph recorder before breakfast Active cetirizine (ZyrTEC) 10 mg tabletIndications :Perennial Allergic Rhinitis,Seasonal Allergic Rhinitis Take 1 tablet (10 mg total) by mouth seismograph recorder before breakfast Active cannabidiol, CBD, (EPIDIOLEX) 100 mg/mL solutionIndicatio ns:sleep Take 5 mg/kg by mouth nightly as needed (sleep) Active docosahexaenoic acid/epa (FISH OIL ORAL)Indications: supplement Take 1 tablet by mouth seismograph recorder before breakfast Active aspirin 500 mg tablet Take 1 tablet (500 mg total) by mouth every 6 (six) hours as needed for pain or headaches Active sod udftu-yiscda-fdbb ez bottle 2,300-700 mg kit Administer 1 [...] on file Legal Sex Female 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
--- OUTSIDE RECORDS SUMMARY | 2024-10-24 17:26 | XMS_ITS | Continuity of Care Document ---
Author Organization [facility] Address [address] [place] [address] Phone Care Team Providers Care Package Car Driver Name Role Phone Aldo Coronado MD Unavailable [...] Copied on Encounter OFFICE/OUTPA TIENT VISIT EST [facility], [address], [place], [facility], tel:[phone] [facility] Impingement syndrome of right shoulder 7 Ivonne Carlson. [address], [place], [place], [id number]. tel:[phone] OFFICE/OUTPA TIENT VISIT EST [facility], [address], [place], [place], [facility], tel:[phone] [facility] Rotator cuff impingement syndrome of left shoulderImping ement syndrome of right shoulder 7 Ivonne Carlson. [address], [place], [place], [id number]. tel:[phone] OFFICE/OUTPA TIENT VISIT [facility], [address], [address], tel:[phone] [facility] Right rotator cuff tendonitis 1 7 Ivonne Carlson. [address], [place], [place], [id number]. tel:[phone] [facility], [address] [place] [address], [address], [place] tel:[phone] [facility] Knee pain, right Apr-3 0-201 4 Zelda Kelsy. [address] [address], [place], [place], [id number]. tel:[phone] OFFICE/OUTPA TIENT VISIT [facility], [address], [address], [place] tel:[phone] [facility] Knee pain, right May- 0-201 4 Zelda Kelsy. [address] [address], [place], [place], [id number]. tel:[phone] OFFICE/OUTPA TIENT VISIT [facility], [address], [address], [place] tel:[phone] [facility] Bakers cyst 7 4 Tru Gomez. [address] [place] [address], [id number]. tel:[phone] Family History Family Member Type Diagnosis Age At Onset Mother Problem (finding) Alive and well Payers Payer name Insurance type Covered republican ID Zulay fam(s) Blue Access PPO E2 OT [id number] Social History Type Description Quantity Date Captured [...] Assessment Date assessment [facility] Patient Care Teams Name Effective Dates (start - stop) Status Members No Information
--- OUTSIDE RECORDS SUMMARY | 2024-10-24 17:26 | XMS_ITS | Clinical Summary ---
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
[2024-10-24] MEDS: ACETAMINOPHEN 500 MG TABLET 1000 MG PO (17:58)
== END 2024-10-24 18:54 | disposition home or self-care (01) ==
PROVIDERS: Emergency Provider Physician Assistant; PCP Emergency Medicine
DX: S59.912A Unspecified injury of left forearm, initial encounter (principal); S59.911A Unspecified injury of right forearm, initial encounter; M25.422 Effusion, left elbow; I10 Essential (primary) hypertension; E03.9 Hypothyroidism, unspecified; J32.9 Chronic sinusitis, unspecified; G47.33 Obstructive sleep apnea (adult) (pediatric); M19.90 Unspecified osteoarthritis, unspecified site; Z96.652 Presence of left artificial knee joint; Z96.641 Presence of right artificial hip joint; Z77.22 Contact with and (suspected) exposure to environmental tobacco smoke (acute) (chronic); R93.6 Abnormal findings on diagnostic imaging of limbs; Z79.899 Other long term (current) drug therapy; W01.0XXA Fall on same level from slipping, tripping and stumbling without subsequent striking against object, initial encounter
CPT/HCPCS: 73080; 73090; 99284; A4565; A9270

== ENCOUNTER 2025-02-24 07:57 | Outpatient (CLI) | payer BC, SELFPAY ==
--- OUTSIDE RECORDS SUMMARY | 2016-11-28 07:35 | XMS_ITS | Continuity of Care Document ---
Author Organization [facility] Address [address] [place] [address] Phone Care Team Providers Care Ethnic Origins Teacher Name Role Phone Aldo Coronado MD Unavailable [...] Copied on Encounter OFFICE/OUTPA TIENT VISIT EST [facility], [address], [place], [facility], tel:[phone] [facility] Impingement syndrome of right shoulder 7 Ivonne Carlson. [address], [place], [place], [id number]. tel:[phone] OFFICE/OUTPA TIENT VISIT EST [facility], [address], [place], [place], [facility], tel:[phone] [facility] Rotator cuff impingement syndrome of left shoulderImping ement syndrome of right shoulder 7 Ivonne Carlson. [address], [place], [place], [id number]. tel:[phone] OFFICE/OUTPA TIENT VISIT [facility], [address], [address], tel:[phone] [facility] Right rotator cuff tendonitis 1 7 Ivonne Carlson. [address], [place], [place], [id number]. tel:[phone] [facility], [address] [place] [address], [address], [place] tel:[phone] [facility] Knee pain, right Apr-3 0-201 4 Zelda Kelsy. [address] [address], [place], [place], [id number]. tel:[phone] OFFICE/OUTPA TIENT VISIT [facility], [address], [address], [place] tel:[phone] [facility] Knee pain, right May- 0-201 4 Zelda Kelsy. [address] [address], [place], [place], [id number]. tel:[phone] OFFICE/OUTPA TIENT VISIT [facility], [address], [address], [place] tel:[phone] [facility] Bakers cyst 7 4 Tru Gomez. [address] [place] [address], [id number]. tel:[phone] Family History Family Member Type Diagnosis Age At Onset Mother Problem (finding) Alive and well Payers Payer name Insurance type Covered alliance party ID Zulay fam(s) Blue Access PPO E2 OT [id number] Social History Type Description Quantity Date Captured [...] Assessment Date assessment [facility]ing[facility] Patient Care Teams Name Effective Dates (start - stop) Status Members No Information
--- OUTSIDE RECORDS SUMMARY | 2025-02-24 08:08 | XMS_ITS | Clinical Summary ---
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 Gender Identity Not on file Sexual Orientation Not on file Plan of Treatment Health Maintenance Due Date Last Done Comments Hepatitis C Virus (HCV) Screening 1961 Pap Smear 1982 Cervical Cancer Screening (CCS) 12/13/1991 HPV/Cotest 12/13/1991 Cologuard 2006 Colonoscopy 2006 Colorectal Cancer Screening 2006 Immunochemical Fecal Occult Blood 2006 Pneumococcal Immunization (50+ years) (1 of 1 - PCV) 12/13/2011 Influenza Immunization (#1) 11/23/202411/24, 01/02/2019, 01/01/2018, Additional history exists SARS-COV-2 Immunization ( - season) 2024 Respiratory Syncytial Virus (RSV) Immunization (Adult) (1 [...]
--- OUTSIDE RECORDS SUMMARY | 2025-02-24 08:08 | XMS_ITS | Clinical Summary ---
Author Organization [facility] Address [address] [place] [id number] Care Team Providers Care Licensed Nurse Practitioner Name Role Phone Lucas Thomas MD Primary [...] 1 tablet (137 mcg total) by mouth line maintainer section before breakfast 3 Active losartan (COZAAR) 50 mg tabletIndications :hypertension Take 1 tablet (50 mg total) by mouth line maintainer section before breakfast 3 Active tolterodine (DETROL) 2 [...] 1 tablet (180 mg total) by mouth line maintainer section before breakfast Active cetirizine (ZyrTEC) 10 mg tabletIndications :Perennial Allergic Rhinitis,Seasonal Allergic Rhinitis Take 1 tablet (10 mg total) by mouth line maintainer section before breakfast Active cannabidiol, CBD, (EPIDIOLEX) 100 mg/mL solutionIndicatio ns:sleep Take 5 mg/kg by mouth nightly as needed (sleep) Active docosahexaenoic acid/epa (FISH OIL ORAL)Indications: supplement Take 1 tablet by mouth line maintainer section before breakfast Active aspirin 500 mg tablet Take 1 tablet (500 mg total) by mouth every 6 (six) hours as needed for pain or headaches Active sod ocsbw-xvnkuq-skda ez bottle 2,300-700 mg kit Administer 1 [...] on file 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 Gender Identity Not on file Sexual Orientation [...] 97.5 kg (215 lb) 05/24/2023 11:00 AM METAL INSPECTOR Height 170.2 cm (5' 7) 05/24/2023 11:00 AM METAL INSPECTOR Body Mass Index 33.67 05/24/2023 11:00 AM METAL INSPECTOR Plan of Treatment Health Maintenance Due Date Last Done Comments Breast Cancer Screening-Mammogram 1961 Colon Cancer Screening-Colonoscopy 1961 Depression Screening 1961 Hepatitis C Screening 1961 Hepatitis B Screening 12/13/1979 Regular Well Visit/Exam 18-64 12/13/1979 Pneumococcal vaccine <65 (1 of 2 - PCV) 1980 Covid-19 Vaccine ( - 2024-2 6 season) 2024 12/16/2022, 12/13/2021, 06/24/2021, Additional history exists Influenza Vaccine (#1) 2024 , 12/13/2021, 12/02/2020, Additional history exists DTaP/Tdap/Td Vaccine (3 - Td or Tdap) 12/28/2026 12/28/2016, 04/21/2012 Zoster Vaccine Completed 02/20/2020, 12/22/2019 Insurance [place] [address] [place] Care Teams Licensed Nurse Practitioner Relationship Specialty Start Date End Date Lucas Thomas MD [address] [place] [address] PCP - General Emergency Medicine 04/23/23
[2025-02-24 08:36] LABS: Hematocrit 42.5 % (37.0-47.0); Hemoglobin 13.6 g/dL (12.0-15.0); Immature Granulocyte Percent A 0.4 % (0-0.5); Lymphocytes Absolute Auto 1.73 K/mm3 (0.9-3.2); Mean Corpuscular HGB Conc 32.0 g/dl (32-36); Mean Corpuscular Hemoglobin 26.8 pg (26-34); Mean Corpuscular Volume 83.8 fl (80-100); Nucleated Red Blood Cells Absolute Auto 0.000 K/mm3 (0.0-0.012); Nucleated Red Blood Cells Perc 0.0 % (0.0-0.2); Platelet Count Result 202 k/mm3 (150-375); Red Blood Count 5.07 M/mm3 (4.2-5.4); White Blood Count 5.4 K/mm3 (4.5-10.0)
[2025-02-24 08:47] LABS: Hemoglobin A1C 5.8 % (<5.7)
[2025-02-24 09:46] LABS: MRSA (PCR) NOT DETECTED (NOT DETECTE)
== END 2025-02-24 07:58 | disposition home or self-care (01) ==
LOC: ANHSURGERY 08:02
PROVIDERS: PCP Emergency Medicine; Visit Provider Orthopaedic Surgery
DX: M17.11 Unilateral primary osteoarthritis, right knee (principal); Z01.818 Encounter for other preprocedural examination
CPT/HCPCS: 80307; 83036; 85025; 86850; 86900; 86901; 87641

== ENCOUNTER 2025-03-05 09:08 | Observation (INO) | payer BC, SELFPAY ==
--- OUTSIDE RECORDS SUMMARY | 2016-11-28 07:35 | XMS_ITS | Continuity of Care Document ---
Author Organization [facility] Address [address] [place] [address] Phone Care Team Providers Care Supervisor Shuttle Preparation Name Role Phone Aldo Coronado MD Unavailable Unavailable Allergies, Adverse Reactions, Alerts Substance Reaction Status Criticality codeine Active No Information Penicillins Unknown Active No Information Medications Medication Instructions Dosage Effective Dates (start - stop) Status Comments TIROSINT (unknown strength) take 1 capsule by oral route every day Not Available - Active Procedures Procedure Date OFFICE/OUTPATIENT VISIT EST OFFICE/OUTPATIENT VISIT EST OFFICE/OUTPATIENT VISIT NEW POSTOP FOLLOW-UP VISIT OFFICE/OUTPATIENT VISIT EST OFFICE/OUTPATIENT VISIT NEW Advance Directives Directive Yes / No Effective Date File Name No Information Encounters Encounter Description Practice Location Reason(s) For Visit Diagnoses Date Provider Providers Copied on Encounter OFFICE/OUTPA TIENT VISIT EST [facility], [address], [place], [facility], tel:[phone] [facility] Impingement syndrome of right shoulder 7 Ivonne Carlson. [address], [place], [place], [id number]. tel:[phone] OFFICE/OUTPA TIENT VISIT EST [facility], [address], [place], [place], [facility], tel:[phone] [facility] Rotator cuff impingement syndrome of left shoulderImping ement syndrome of right shoulder 7 Ivonne Carlson. [address], [place], [place], [id number]. tel:[phone] OFFICE/OUTPA TIENT VISIT [facility], [address], [address], tel:[phone] [facility] Right rotator cuff tendonitis 1 7 Ivonne Carlson. [address], [place], [place], [id number]. tel:[phone] [facility], [address] [place] [address], [address], [place] tel:[phone] [facility] Knee pain, right Apr-3 0-201 4 Zelda Kelsy. [address] [address], [place], [place], [id number]. tel:[phone] OFFICE/OUTPA TIENT VISIT [facility], [address], [address], [place] tel:[phone] [facility] Knee pain, right May- 0-201 4 Zelda Kelsy. [address] [address], [place], [place], [id number]. tel:[phone] OFFICE/OUTPA TIENT VISIT [facility], [address], [address], [place] tel:[phone] [facility] Bakers cyst 7 4 Tru Gomez. [address] [place] [address], [id number]. tel:[phone] Family History Family Member Type Diagnosis Age At Onset Mother Problem (finding) Alive and well Payers Payer name Insurance type Covered republican ID Zulay fam(s) Blue Access PPO E2 OT [id number] Social History Type Description Quantity Date Captured Comments Alcohol Use Details Unknown Caffeine Use Details Unknown Tobacco Use Status Never smoked tobacco 2016 Smoking Status Never smoker Non-Smoking Tobacco Use Details : No Details Available : No Details Available Sex Female Chief Complaint And Reason For Visit No Information Reason For Referral Reason For Referral No Information Plan Of Treatment Date Type Action Status Referral Ordered: RADEX PAULO COMPL MINIMUM 2 VIEWS RT ordered Referral Ordered: MRI ANY JT LXTR C-MATRL RT knee Appointment date/timeframe: 06/15/2013 ordered History Of Present Illness Encounter Date Complaint History Of Prese nt Illness No Information Functional Status Date Functional Assessmen t No Information Instructions Date Instruction Additional Infor mation Elevate extremity above heart. R elated to Impingement syndrome of right shoulder Apply ice as tolerated. Related to Impingement syndrome of right shoulder Elevate extremity above heart. R elated to Impingement syndrome of right shoulder Apply ice as tolerated. Related to Impingement syndrome of right shoulder Elevate extremity above heart. R elated to Right rotator cuff tendonitis Apply ice as tolerated. Related to Right rotator cuff tendonitis Assessments Type Assessment Date assessment [facility] Patient Care Teams Name Effective Dates (start - stop) Status Members No Information
--- NOTE | 2025-02-17 09:20 | PC.NURSE ---
[facility] has started construction of its new state of the art ER which will open Spring 2026. With this, we anticipate parking may be a challenge for some our surgical patients and families. Parking spaces are limited but are available for all Surgical, obstetrics, and ER patients sharing this lot. If you arrive and find you are having a hard time finding a parking space, please note that we understand the challenges, please drive around the hospital and park near Hospital Entrance 1. When you enter this entrance, you can ask a volunteer to direct or take you back to the surgical waiting area to check in. We appreciate everyone?s understanding of these expected challenges while we build for your future. Report to the Outpatient Waiting Room, entrance under the green pavilion located off [address], at time _6 AM on date ___03/03/25____. Planned Procedure Time: __7:30 AM .? Time changes happen often and if your time is changed the preop area will call you the afternoon before. - You and your visitor will be asked to self-screen and do not enter if you have any COVID symptoms. Please call surgeon if you need to reschedule. - A mask is optional within the hospital at this time. Patients may have clear liquids (water, carbonated beverages, clear teas, apple juice) until 3 hours prior to surgery(4:30 AM) with a maximum of 20 ounces. - No food from midnight until time of surgery and no smoking, or chewing tobacco (or any form of nicotine). No chewing gum, candy or mints. Take only the following medications with a SIP of water on the morning of surgery: LEVOTHYROXINE DO NOT STOP ANY OF YOUR OTHER PRESCRIPTION MEDICATIONS PRIOR TO SURGERY EXCEPT THE FOLLOWING Hold all vitamins and supplements for 3 days per anesthesiologist.LAST DOSE 02/27/25 Medications to discontinue per physician ____ASPIRIN PER DR FRANKLIN Please no make-up, nail italian, hairspray, perfume, deodorant, or body powder the day of surgery.? No jewelry (including any body piercings) or valuables the day of surgery, leave them at home.? Please take a shower or bath the night before, or the morning of, surgery with an antibacterial soap.? Wear comfortable, loose fitting clothing.? Children are encouraged to wear pajamas. - Jewelry must be removed prior to entering the operating room.? Rings and piercings that are not removed may be cut off. - The hospital will not accept responsibility for valuables.? - Please leave all valuables, including medications, at home the day of surgery. If you are going home after surgery, a licensed route cdl driver must drive you home.? - NO public transportation without another adult if you receive anesthesia. - We recommend that an adult stay with you for 24 hours following discharge. - We also recommend that you do not drive, make important decision, drink alcoholic beverages, or take any drugs that were not prescribed by your health care provider for at least 24 hours after your discharge time. For Pediatric surgeries, we recommend two adults accompany the child home. Follow any additional instructions given to you from your surgeon. Telephone instructions given to ___PATIENT and asked if any additional questions and then verbalized understanding. Patient advised to call surgeon office or pre surgery nurse liaison [phone] if any additional questions.
[2025-02-17 09:39] VITALS: BMI 34.8
--- NOTE | 2025-03-02 07:24 | P.HP_ITS ---
H&P: HPI History of Present Illness Date/Time: 03/02/25 07:24 Chief Complaint: Patient has knee pain right. She has pyib-bw-vnen arthritis of her right knee and has failed conservative treatment. She would like to consider knee replacement surgery. I have discussed this with her. Review of Systems Musculoskeletal: Musculoskeletal: Reports arthralgias, Reports joint swelling and Reports stiffness Neurologic: Reports abnormal gait [facility] Past Medical History Medical History REBEKAH (obstructive sleep apnea) does not wear a CPAP Chronic sinusitis Hypothyroidism Hypertension Osteoarthritis Surgical History Surgical History S/P knee replacement (08/19/24) left knee History of right hip replacement 08/26/23 History of endometrial ablation (11/24/11) History of laparoscopy (09/17/11) With adhesiolysis. History of total abdominal hysterectomy and bilateral salpingo-oophorectomy (05/02/17) For uterine prolapse and cervical dysplasia. History of laser assisted in situ keratomileusis History of loop electrical excision procedure (LEEP) (1993) History of arthroscopy of left knee History of nasal surgery History of colposcopy (01/21/17) History of tonsillectomy History of partial thyroidectomy (2002) Right History of foot surgery right x 2 Family History Family History Sibling Diabetes mellitus Family history of seizure disorder Pancreatitis Father Family history of lung cancer, Onset Age: 59 Other Heart disease Mother COPD (chronic obstructive pulmonary disease) Emphysema/COPD Social History Social History (Updated 02/01/25 @ 15:11 by Adelita Bowers MA) Social History: Surrogate medical decision maker: Chica Anthony, sibling. Code status: Full code. Smoking status: Never smoker Second hand tobacco smoke exposure: No Additional smoking assessment comments: DENIES ANY FORM OF TOBACCO USE Alcohol intake: current Drinks per week: 2 Alcohol use details: BEER Substance use: current Substance use type: marijuana Other substance usage details: gummies to sleep Lack of Transportation: No Lack of Food: Never True Current Housing: I Have Housing Concerned About Future Housing: No Difficulty Paying Gas/Electric Bills: No Difficulty Paying for Meds: No Currently Unemployed: No Education: Bachelor's Degree Difficulty w/ Childcare or Family Care: No Living arrangements: alone Occupation/Education: occupation 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 Gender identity (if verbalized by the patient): Female Sexual Orientation (if Verbalized by the Patient): Straight or Heterosexual Spiritual care concerns: No Meds Home Medications and Allergies Home Medications ?Medication ?Instructions ?Recorded ?Confirmed ?Type omega 1-wcv-bjb-fish oil 1,000 mg 1 cap PO DAILY 04/0102/17/25 History (120 mg-180 mg) capsule (Fish Oil) fexofenadine 60 mg tablet (Yolande 60 mg PO QAM 02/17/25 History Allergy) cholecalciferol (vitamin D3) 50 100 mcg (2 x 50 mcg (2 ,000 unit)) 08/13/23 02/17/25 Rx mcg (2,000 unit) capsule PO DAILY #180 caps losartan 50 mg tablet See Rx Instructions .Route 0 07/10/24 02/17/25 Rx .COMPLEX #90 tabs azelastine 137 mcg (0.1 %) nasal 1 spray intranasal .q d-bid PRN 08/04/24 02/17/25 History spray allergy symptoms fluticasone propionate 50 1 spray intranasal BID PRN n nate 08/04/24 02/17/25 History mcg/actuation nasal congestion spray,suspension (Flonase Allergy Relief) levothyroxine 125 mcg tablet See Rx Instructions .Rout e 09/09/24 02/17/25 Rx .COMPLEX #90 tabs tolterodine 2 mg tablet 2 mg PO Q12H 10/27/24 History cetirizine 10 mg capsule (Zyrtec) 10 mg PO HS PRN stephen rgy symptoms 11/27/24 02/17/25 History acetaminophen 650 mg 1,300 mg PO PRN PRN pain 02/17/25 History tablet,extended release (8 Hour Pain Reliever) aspirin 325 mg tablet (Tyler 325 mg PO PRN 02/17/25 History Aspirin) Allergies Allergy/AdvReac Type Severity Reaction Status Date / Time No Known Allergies Allergy Verified 02/17/25 09:18 Exam Narrative: On exam she has motion about 3 to 105?. Varus deformity. Neurologically she is intact. She walks with antalgic gait. She has pain with any manipulation. She has mild swelling in the knee. Eyes: General: appearance normal, both eyes and all related structures Neck: Neck: supple Resp: Effort & Inspection: normal respiratory effort Cardio: Rate: regular rate Rhythm: regular rhythm Elbow X-Ray 11/10/24 Forearm X-Ray 10/24/24 Hip/Pelvis X-Ray 09/01/24 Knee X-Ray 10/27/24 Orthopedics Result Report 11/10/24 Assessment and Plan Assessment and plan (1) Osteoarthritis of right knee: Code(s): M17.11 - Unilateral primary osteoarthritis, right knee Status: Acute Assessment and Plan: Patient is knee pain right. She has zmzj-ki-ohyq arthritis. She has valgus deformity. Pain with any manipulation. She has a previous knee replacement on the left. Is doing well from that. She has failed conservative treatment like to consider knee replacement surgery. I discussed the risks, benefits, limitations, and alternatives the patient in detail. She understands and agrees. Will proceed per her request.
[2025-03-03] VITALS (17 sets, daily range): BP systolic 130–159; BP diastolic 70–100; PULSE 73–102; RESP 11–23; TEMP 36.2–36.4; O2SAT 90–99
--- OUTSIDE RECORDS SUMMARY | 2025-03-03 00:16 | XMS_ITS | Clinical Summary ---
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
--- OUTSIDE RECORDS SUMMARY | 2025-03-03 00:16 | XMS_ITS | Patient Health Record ---
Author Organization [facility] Address [address] [place], [place] [id number] Care Team Providers Care Ingredient Specialist Name Role Phone LIUS CERVANTES Unavailable [phone] Lucas Thomas Unavailable Unavailable Reason For Referral No Information Medications Medication SIG (Take, Route, Frequency, Duration) Notes Start Date End Date Status levothyroxine sodium 0.125 MG Oral Tablet ORAL levothyroxine sodium 0.125 MG Oral TabletOriginal Medicationlevothyroxine sodium 0.125 MG Oral Tablet *Reorder from OrderDynamicsan for eRx and Interaction Alerts* 6 Active Meloxicam 7.5 MG Oral Tablet ORAL meloxicam 7.5 MG Oral TabletOriginal Medicationmeloxicam 7.5 MG Oral Tablet *Reorder from Memvuspan for eRx and Interaction Alerts* 6 Active Social History Social History Additional Details Category Social Info Options Details Migrated Social History Migrated Social History History of tobacco use : , Alcohol intake : , Smoking Status : Never smoked Plan Of Treatment No Information Insurance Providers Payer Name Payer Address Payer Phone Subscriber Number Group Number Insured Name Patient Relationship to Insured Coverage Start Date Coverage End Date [facility] [address] [place], [place] [id number] 1 KARLEEWILY Spouse - patient is the spouse of the insured
--- OUTSIDE RECORDS SUMMARY | 2025-03-03 00:16 | XMS_ITS | Clinical Summary ---
Author Organization [facility] Address [address] [place] [id number] Care Team Providers Care Machine Compositor Name Role Phone Lucas Thomas MD Primary [...] 1 tablet (137 mcg total) by mouth fuel system maintenance supervisor before breakfast 3 Active losartan (COZAAR) 50 mg tabletIndications :hypertension Take 1 tablet (50 mg total) by mouth fuel system maintenance supervisor before breakfast 3 Active tolterodine (DETROL) 2 [...] 1 tablet (180 mg total) by mouth fuel system maintenance supervisor before breakfast Active cetirizine (ZyrTEC) 10 mg tabletIndications :Perennial Allergic Rhinitis,Seasonal Allergic Rhinitis Take 1 tablet (10 mg total) by mouth fuel system maintenance supervisor before breakfast Active cannabidiol, CBD, (EPIDIOLEX) 100 mg/mL solutionIndicatio ns:sleep Take 5 mg/kg by mouth nightly as needed (sleep) Active docosahexaenoic acid/epa (FISH OIL ORAL)Indications: supplement Take 1 tablet by mouth fuel system maintenance supervisor before breakfast Active aspirin 500 mg tablet Take 1 tablet (500 mg total) by mouth every 6 (six) hours as needed for pain or headaches Active sod ilgsm-euvbtm-bjhb ez bottle 2,300-700 mg kit Administer 1 [...] on file 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
[2025-03-03] MEDS: ACETAMINOPHEN 500 MG TABLET 1000 MG PO (06:20)
[2025-03-03] MEDS: TRANEXAMIC ACID 1,000MG/ISO100 1,000 MG/100 ML BAG 200 MG IVPB (06:25)
[2025-03-03] MEDS: LACTATED RINGERS 1,000 ML 30 ML IV CONT ×2 (06:25→10:15)
[2025-03-03] MEDS: VANCOMYCIN 1,500 MG/NS 500 ML BAG 250 MG IVPB (06:37)
--- NOTE | 2025-03-03 06:37 | WPDHPUPDATE1 ---
History and Physical Update Update Date/Time: 03/03/25 06:37 History and Physical has been reviewed, including an updated exam of the patient. There are NO changes in the patient's condition. Risks, benefits, and alternatives have been discussed and questions answered. Patient agrees to proceed with procedure.
--- NOTE | 2025-03-03 07:25 | WPDANESEPPF ---
Anes - Initial Pre Proc Eval Procedure: Operation Date: 03/03/25 07:30 Proposed Procedures p Right Total Knee Arthroplasty - Rupert Rico MD Date/Time: 03/03/25 07:25 Surgeon: Rupert Rico MD Pre Op Diagnosis: OA right knee Patient Data Age: 64 Gender: F Height: 1.68 m Weight: 98.6 kg Last Vital Signs Temp 36.4 C 03/03/25 05:55 Pulse 96 03/03/25 05:55 Resp 18 03/03/25 05:55 BP 136/83 03/03/25 06:30 Pulse Ox 97 03/03/25 05:55 O2 Del Method Room Air 03/03/25 05:55 Allergies Allergy/AdvReac Type Severity Reaction Status Date / Time No Known Allergies Allergy Verified 03/03/25 06:05 Home Medications ?Medication ?Instructions ?Recorded ?Confirmed ?Type omega 1-cdx-nfu-fish oil 1,000 mg 1 cap PO DAILY 04/01/20 03/03/25 History (120 mg-180 mg) capsule (Fish Oil) fexofenadine 60 mg tablet (Yolande 60 mg PO QAM 01/30/21 03/03/25 History Allergy) cholecalciferol (vitamin D3) 50 100 mcg (2 x 50 mcg (2,000 unit)) 08/13/23 03/03/25 Rx mcg (2,000 unit) capsule PO DAILY #180 caps losartan 50 mg tablet See Rx Instructions .Route 07/10/24 03/03/25 Rx .COMPLEX #90 tabs azelastine 137 mcg (0.1 %) nasal 1 spray intranasal .qd-bid PRN 08/04/24 03/03/25 History spray allergy symptoms fluticasone propionate 50 1 spray intranasal BID PRN nasal 08/04/24 02/17/25 History mcg/actuation nasal congestion spray,suspension (Flonase Allergy Relief) levothyroxine 125 mcg tablet See Rx Instructions .Route 09/09/24 03/03/25 Rx .COMPLEX #90 tabs tolterodine 2 mg tablet 2 mg PO Q12H 10/27/24 03/03/25 History cetirizine 10 mg capsule (Zyrtec) 10 mg PO HS PRN allergy symptoms 11/27/24 03/03/25 History acetaminophen 650 mg 1,300 mg PO PRN PRN pain 02/17/25 02/17/25 History tablet,extended release (8 Hour Pain Reliever) aspirin 325 mg tablet (Tyler 325 mg PO PRN 02/17/25 02/17/25 History Aspirin) Patient hx anesthesia problems: none Family hx anesthesia problems: none Results Review: All pre-operative results and documents have been reviewed as part of the pre-operative evaluation. [facility] Past Medical History Medical History REBEKAH (obstructive sleep apnea) does not wear a CPAP Chronic sinusitis Hypothyroidism Hypertension Osteoarthritis Surgical History Surgical History S/P knee replacement (08/19/24) left knee History of right hip replacement 08/26/23 History of endometrial ablation (11/24/11) History of laparoscopy (09/17/11) With adhesiolysis. History of total abdominal hysterectomy and bilateral salpingo-oophorectomy (05/02/17) For uterine prolapse and cervical dysplasia. History of laser assisted in situ keratomileusis History of loop electrical excision procedure (LEEP) (1993) History of arthroscopy of left knee History of nasal surgery History of colposcopy (01/21/17) History of tonsillectomy History of partial thyroidectomy (2002) Right History of foot surgery right x 2 Family History Family History Sibling Diabetes mellitus Family history of seizure disorder Pancreatitis Father Family history of lung cancer, Onset Age: 59 Other Heart disease Mother COPD (chronic obstructive pulmonary disease) Emphysema/COPD Social History Social History Social History: Surrogate medical decision maker: Chica Anthony, sibling. Code status: Full code. Smoking status: Never smoker Second hand tobacco smoke exposure: No Additional smoking assessment comments: never smoker Alcohol intake: current Drinks per week: 2 Alcohol use details: BEER Substance use: current Substance use type: marijuana Other substance usage details: gummies to sleep Lack of Transportation: No Lack of Food: Never True Current Housing: I Have Housing Concerned About Future Housing: No Difficulty Paying Gas/Electric Bills: No Difficulty Paying for Meds: No Currently Unemployed: No Education: Bachelor's Degree Difficulty w/ Childcare or Family Care: No Living arrangements: alone Occupation/Education: occupation 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 Gender identity (if verbalized by the patient): Female Sexual Orientation (if Verbalized by the Patient): Straight or Heterosexual Spiritual care concerns: No Anes - Eval Final PreProcedure Day of Procedure 03/03/25 07:25 Patient weight: obese Heart: regular rate and rhythm Lungs: clear to auscultation Airway: Mallampati scale class III Neurological: alert and oriented Last oral intake: >/= 8 hours ASA classification: III Emergent: no Anesthetic plan: proceed Anesthesia type and monitoring: general LMA and standard monitoring Results Review: All pre-operative results and documents have been reviewed as part of the pre-operative evaluation. Informed Consent: The patient's anesthetic plan and its attendant risks and benefits were discussed with the patient/family/POA. Questions were solicited and answers provided to the satisfaction of the patient/family/POA.
[2025-03-03] MEDS: ceFAZolin 2 GM in SODIUM CHLORIDE 0.9% IV 50 ML 100 ML IVPB ×2 (07:30→16:50)
[2025-03-03] MEDS: SODIUM CHLORIDE 0.9% IV 37.7 ML, MORPHINE SULFATE INJ (*CRX) 2 MG, ROPivacaine HCL 1% 2... INFILTRATE (08:07)
--- NOTE | 2025-03-03 09:03 | W.PM.PROC2 ---
Procedure Note - Detailed Date of Procedure 03/03/25 Pre-op Diagnosis Osteoarthritis right knee Post-op Diagnosis Same Procedure Performed RIGHT Total Knee arthroplasty Surgeon Rupert Rico MD Anesthesia General Indications Pain and Arthritis Description of Procedure The patient was brought to operating room #7. A general anesthetic was administered. Placed on the operating table and sterilely prepped and draped in usual manner. A longitudinal incision was made. Tourniquet inflated to 300 mmHg for a total of 48 minutes. Dissection was carried down to the fascia. Medial parapatellar incision was made and the patella subluxated laterally. Patella cut from 20 to 14 mm. The tibia was cut perpendicular to the long axis and femur cut in 7 degrees of valgus. The components were trialed and the knee was noted to be stable with excellent motion. The soft tissues balanced, hemostasis obtained. All [address], 63 tibia, 60 femur, 34 mm patella, and 11 mm poly. Motion was 0-125 degrees with good stability in both flexion and extension. The wound was closed with #2 Vicryl, 2-0 Vicryl and mary jane. [employer] Estimated Blood Loss 200 Drains No Packing No Pathology None sent Complications No immediate complications Condition Stable Disposition PACU [facility] Billing Surgery - Charge Forward: Surgery Billing ([id number] TKA)
[2025-03-03] MEDS: fentaNYL CITRATE INJ (*CRX) 100 MCG/2 ML VIAL 25 MCG IV PUSH ×6 (09:40→10:47)
[2025-03-03] MEDS: oxyCODONE HCL (*CRX) 5 MG TAB IR PO (11:07)
[2025-03-03] MEDS: HYDROmorphone HCL INJ (*CRX) 1 MG/ML SYR IV PUSH (14:13)
[2025-03-03] MEDS: ASPIRIN 325 MG TABLET PO (16:22)
[2025-03-03] MEDS: HYDROcodone/acetaminophen (*CRX) 7.5-325 MG TABLET 1 TAB PO ×2 (16:23→20:58)
[2025-03-03] MEDS: SENNA/DOCUSATE SODIUM TABLET 2 TAB PO (16:23)
[2025-03-03] MEDS: CELECOXIB 200 MG CAPSULE PO (16:24)
--- NOTE | 2025-03-03 19:42 | PM.IMCN2 ---
Assessment and Plan Assessment and plan (1) Osteoarthritis of right knee: Code(s): M17.11 - Unilateral primary osteoarthritis, right knee Status: Chronic Assessment and Plan: Total right knee arthroplasty done on 03/[address] Rico. Primary management through orthopedic team. - ambulate with assistance and up to chair - use IS - neurovasc checks every shift - SCDs and TEDs - analgesics and antiemetics p.r.n. - monitor labs in AM - CBC and BMP - bowel regimen: docusate/senna, polyethylene glycol - PT/OT (2) Hypertension: Qualifiers: Hypertension type: primary hypertension Qualified Code(s): I10 - Essential (primary) hypertension Code(s): I10 - Essential (primary) hypertension Status: Chronic Assessment and Plan: Continue Cozaar, (3) Hypothyroidism (acquired): Code(s): E03.9 - Hypothyroidism, unspecified Status: Chronic Assessment and Plan: Continue levothyroxine Plan Diet: Regular DVT prophylaxis: SCDs lines/drains: PIV Fluids: Intraoperative fluids Code status: Full Prior Studies I have reviewed the following patient records and this information was taken into consideration when formulating the assessment and plan.: previous labs, previous ER visits, previous hospitalizations and previous clinic visits Time Spent with Patient Time with patient: 45 - 74 minutes HPI Date of Consult Consult date: 03/04/25 Requesting Physician: Rupert Rico MD Primary Care Provider: Lucas Thomas MD Consult Narrative Reason for consult: Medical management Narrative: Manda Chavez is a 64 year old female with past medical history of REBEKAH without CPAP, hypothyroidism, hypertension presents to the surgery center on 03/03/2025 for a planned right total knee arthroplasty. She has memb-mu-nkoj arthritis in her left knee and has failed conservative treatments including cortisone and naproxen. Patient underwent a left total knee arthroplasty earlier this year and has progressed well from that. She would like to proceed with surgical intervention as she is having difficulty with her ADLs and pain with ambulation and climbing stairs. Postoperatively, she reports pain is moderate but tolerable. Using p.r.n. pain medications. No nausea or vomiting. Preoperative vital signs 153/100, 96 heart rate, respirations 18, afebrile and 97% on room air. Preop labs on 02/24 are stable with no leukocytosis or anemia. Hemoglobin A1c 5.8. Review of Systems Review of Systems: All systems reviewed & are unremarkable except as noted in HPI and below FOR[facility]LY [facility], [facility] Past Medical History Medical History (Updated 03/04/25 @ 00:52 by Candice Jones APRN) REBEKAH (obstructive sleep apnea) does not wear a CPAP Chronic sinusitis Hypothyroidism Hypertension Osteoarthritis Surgical History Surgical History S/P knee replacement (08/19/24) left knee History of right hip replacement 08/26/23 History of endometrial ablation (11/24/11) History of laparoscopy (09/17/11) With adhesiolysis. History of total abdominal hysterectomy and bilateral salpingo-oophorectomy (05/02/17) For uterine prolapse and cervical dysplasia. History of laser assisted in situ keratomileusis History of loop electrical excision procedure (LEEP) (1993) History of arthroscopy of left knee History of nasal surgery History of colposcopy (01/21/17) History of tonsillectomy History of partial thyroidectomy (2002) Right History of foot surgery right x 2 Family History Family History Sibling Diabetes mellitus Family history of seizure disorder Pancreatitis Father Family history of lung cancer, Onset Age: 59 Other Heart disease Mother COPD (chronic obstructive pulmonary disease) Emphysema/COPD Social History Social History Social History: Surrogate medical decision maker: Chica Anthony, sibling. Code status: Full code. Smoking status: Never smoker Second hand tobacco smoke exposure: No Additional smoking assessment comments: never smoker Alcohol intake: current Drinks per week: 2 Alcohol use details: BEER Substance use: current Substance use type: marijuana Other substance usage details: gummies to sleep Lack of Transportation: No Lack of Food: Never True Current Housing: I Have Housing Concerned About Future Housing: No Difficulty Paying Gas/Electric Bills: No Difficulty Paying for Meds: No Currently Unemployed: No Education: Bachelor's Degree Difficulty w/ Childcare or Family Care: No Living arrangements: alone Occupation/Education: occupation 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 Gender identity (if verbalized by the patient): Female Sexual Orientation (if Verbalized by the Patient): Straight or Heterosexual Spiritual care concerns: No Meds Home Medications and Allergies Home Medications ?Medication ?Instructions ?Recorded ?Confirmed ?Type omega 5-czz-zwu-fish oil 1,000 mg 1 cap PO DAILY 04/01/20 03/03/25 History (120 mg-180 mg) capsule (Fish Oil) fexofenadine 60 mg tablet (Yolande 60 mg PO QAM 01/30/21 03/03/25 History Allergy) cholecalciferol (vitamin D3) 50 100 mcg (2 x 50 mcg (2,000 unit)) 08/13/23 03/03/25 Rx mcg (2,000 unit) capsule PO DAILY #180 caps losartan 50 mg tablet See Rx Instructions .Route 07/10/24 03/03/25 Rx .COMPLEX #90 tabs azelastine 137 mcg (0.1 %) nasal 1 spray intranasal .qd-bid PRN 08/04/24 03/03/25 History spray allergy symptoms fluticasone propionate 50 1 spray intranasal BID PRN nasal 08/04/24 02/17/25 History mcg/actuation nasal congestion spray,suspension (Flonase Allergy Relief) levothyroxine 125 mcg tablet See Rx Instructions .Route 09/09/24 03/03/25 Rx .COMPLEX #90 tabs tolterodine 2 mg tablet 2 mg PO Q12H 10/27/24 03/03/25 History cetirizine 10 mg capsule (Zyrtec) 10 mg PO HS PRN allergy symptoms 11/27/24 03/03/25 History acetaminophen 650 mg 1,300 mg PO PRN PRN pain 02/17/25 02/17/25 History tablet,extended release (8 Hour Pain Reliever) aspirin 325 mg tablet (Tyler 325 mg PO PRN 02/17/25 02/17/25 History Aspirin) Allergies Allergy/AdvReac Type Severity Reaction Status Date / Time No Known Allergies Allergy Verified 03/03/25 11:59 Vital Signs Vital Signs - 24 hr 03/03/25 05:55 03/03/25 06:30 03/03/25 09:32 Temperature 97.6 F 97.5 F L Pulse Rate 96 102 H Respiratory Rate 18 14 Blood Pressure 153/100 H 136/83 149/89 H Pulse Oximetry 97 97 Oxygen Delivery Room Air Simple Face Mask Oxygen Flow Rate 8 03/03/25 09:45 03/03/25 10:00 03/03/25 10:15 Temperature Pulse Rate 92 90 86 Respiratory Rate 21 H 23 H 20 Blood Pressure 152/91 H 150/97 H 137/88 Pulse Oximetry 92 90 95 Oxygen Delivery Simple Face Mask Room Air Nasal Cannula Oxygen Flow Rate 8 2 03/03/25 10:30 03/03/25 10:45 03/03/25 11:00 Temperature Pulse Rate 84 80 87 Respiratory Rate 16 18 14 Blood Pressure 132/70 145/85 H 140/92 H Pulse Oximetry 97 93 98 Oxygen Delivery Nasal Cannula Nasal Cannula Nasal Cannula Oxygen Flow Rate 3 3 3 03/03/25 11:15 03/03/25 11:30 03/03/25 11:45 Temperature Pulse Rate 90 80 75 Respiratory Rate 11 L 19 Blood Pressure 140/94 H 140/94 H 159/96 H Pulse Oximetry 97 96 96 Oxygen Delivery Nasal Cannula Nasal Cannula Nasal Cannula Oxygen Flow Rate 3 2 2 03/03/25 12:00 03/03/25 12:30 03/03/25 13:30 Temperature Pulse Rate 75 73 98 Respiratory Rate Blood Pressure 145/86 H 147/88 H 148/76 H Pulse Oximetry 97 98 98 Oxygen Delivery Nasal Cannula Nasal Cannula Nasal Cannula Oxygen Flow Rate 2 2 2 03/03/25 14:00 03/03/25 14:02 03/03/25 15:42 Temperature Pulse Rate Respiratory Rate Blood Pressure Pulse Oximetry Oxygen Delivery Room Air Nasal Cannula Room Air Oxygen Flow Rate 2 03/03/25 17:36 Temperature 97.1 F L Pulse Rate 74 Respiratory Rate 14 Blood Pressure 150/90 H Pulse Oximetry 99 Oxygen Delivery Oxygen Flow Rate Exam Narrative: GENERAL: non-toxic appearing, in no acute distress. HEAD: Normocephalic, atraumatic. EYES: PERRLA. Conjunctivae clear. NOSE: Normal no drainage. THROAT: Pharynx clear, no exudate. NECK: Trachea midline. No adenopathy, no masses. RESPIRATORY: Airway patent, respirations nonlabored. CTA. CARDIOVASCULAR: Regular rate and rhythm BREASTS: Defer GASTROINTESTINAL: Abdomen is soft and nontender. No organomegaly. Bowel sounds normal in all quadrants. GENITOURINARY: Defer MUSCULOSKELETAL: Moves all extremities. Surgical dressing to right knee. No hematoma or excessive swelling. SKIN: Warm, dry, normal color. NEURO: A&O X4. Speech clear PSYCHIATRIC: Normal interaction Quality VTE Prophylaxis VTE prophylaxis: mechanical ordered Hospitalist MIPS Advance Care Plan I have confirmed that the patient's Advanced Care Plan is present, code status is documented, or surrogate decision maker is listed in patient medical record.: Yes Medication Reconciliation I have utilized all available resources to obtain, update and review the patients current medications (includes all prescriptions, OTC, herbals, cannabis, and nutritional supplements).: Yes
[2025-03-04] MEDS: ceFAZolin 2 GM in SODIUM CHLORIDE 0.9% IV 50 ML 100 ML IVPB ×2 (01:05→09:22)
[2025-03-04] MEDS: HYDROcodone/acetaminophen (*CRX) 7.5-325 MG TABLET 1 TAB PO ×4 (01:05→23:27)
[2025-03-04] MEDS: HYDROmorphone HCL INJ (*CRX) 1 MG/ML SYR IV PUSH (02:40)
[2025-03-04 06:25] LABS: Hematocrit 39.7 % (37.0-47.0); Hemoglobin 12.4 g/dL (12.0-15.0); Immature Granulocyte Percent A 0.3 % (0-0.5); Lymphocytes Absolute Auto 2.12 K/mm3 (0.9-3.2); Mean Corpuscular HGB Conc 31.2 g/dl (32-36); Mean Corpuscular Hemoglobin 26.8 pg (26-34); Mean Corpuscular Volume 85.9 fl (80-100); Nucleated Red Blood Cells Absolute Auto 0.000 K/mm3 (0.0-0.012); Nucleated Red Blood Cells Perc 0.0 % (0.0-0.2); Platelet Count Result 223 k/mm3 (150-375); Red Blood Count 4.62 M/mm3 (4.2-5.4); White Blood Count 10.7 K/mm3 (4.5-10.0)
[2025-03-04 06:47] LABS: Anion Gap 8 mmol/L (4-12); Blood Urea Nitrogen 20 mg/dL (7-17); Calcium 8.6 mg/dL (8.4-10.2); Carbon Dioxide 22 mmol/L (22-30); Chloride 105 mmol/L (98-107); Estimated CRCL calculation 75 ml/min; Estimated Glomerular Filt Rate > 60; Glucose 118 mg/dL (65-110); Potassium 4.1 mmol/L (3.4-5.0); Sodium 135 mmol/L (137-145)
[2025-03-04 06:55] VITALS: BP 108/78; PULSE 92; RESP 22; TEMP 36.1; O2SAT 96
--- NOTE | 2025-03-04 07:15 | PM.PNORT ---
Progress Note: A&P Assessment and Plan (1) History of knee replacement procedure of right knee: Code(s): Z96.651 - Presence of right artificial knee joint Status: Acute Assessment and Plan: Patient is status post right total knee arthroplasty. She is doing well postoperatively. She can be dismissed this afternoon. Follow up 10 to 14 days for sutures out. She can be full weight-bearing. If she has any changes or problems I have asked her to call. Subjective Subjective Date/Time Seen: 03/04/25 07:15 Post Op day: 1 Interval history: Right total knee arthroplasty for osteoarthritis Review of Systems Musculoskeletal: Musculoskeletal: Reports arthralgias, Reports joint swelling and Reports stiffness Neurologic: Reports abnormal gait Exam Narrative: Dressing is intact. Neurologically she wiggles her toes and good walk. Pain is under control. Objective Data Vital Signs Vital Signs: Vital Signs - 24 hr 03/03/25 09:32 03/03/25 09:45 03/03/25 10:00 Temperature 97.5 F L Pulse Rate 102 H 92 90 Respiratory Rate 14 21 H 23 H Blood Pressure 149/89 H 152/91 H 150/97 H Pulse Oximetry 97 92 90 Oxygen Delivery Simple Face Mask Simple Face Mask Room Air Oxygen Flow Rate 8 8 03/03/25 10:15 03/03/25 10:30 03/03/25 10:45 Temperature Pulse Rate 86 84 80 Respiratory Rate 20 16 18 Blood Pressure 137/88 132/70 145/85 H Pulse Oximetry 95 97 93 Oxygen Delivery Nasal Cannula Nasal Cannula Nasal Cannula Oxygen Flow Rate 2 3 3 03/03/25 11:00 03/03/25 11:15 03/03/25 11:30 Temperature Pulse Rate 87 90 80 Respiratory Rate 14 11 L 19 Blood Pressure 140/92 H 140/94 H 140/94 H Pulse Oximetry 98 97 96 Oxygen Delivery Nasal Cannula Nasal Cannula Nasal Cannula Oxygen Flow Rate 3 3 2 03/03/25 11:45 03/03/25 12:00 03/03/25 12:30 Temperature Pulse Rate 75 75 73 Respiratory Rate Blood Pressure 159/96 H 145/86 H 147/88 H Pulse Oximetry 96 97 98 Oxygen Delivery Nasal Cannula Nasal Cannula Nasal Cannula Oxygen Flow Rate 2 2 2 03/03/25 13:30 03/03/25 14:00 03/03/25 14:02 Temperature Pulse Rate 98 Respiratory Rate Blood Pressure 148/76 H Pulse Oximetry 98 Oxygen Delivery Nasal Cannula Room Air Nasal Cannula Oxygen Flow Rate 2 2 03/03/25 15:42 03/03/25 17:36 03/03/25 21:36 Temperature 97.1 F L 97.2 F L Pulse Rate 74 85 Respiratory Rate 14 18 Blood Pressure 150/90 H 130/78 Pulse Oximetry 99 99 Oxygen Delivery Room Air Oxygen Flow Rate Intake/Output Intake/Output: Intake & Output 03/01/25 03/02/25 03/03/25 03/04/25 23:59 23:59 23:59 23:59 Intake Total 1460 Balance 1460 Meds/Results Medications: Active Medications Generic Name Dose Route Start Last Admin Trade Name Freq PRN Reason Stop Dose Admin Hydrocodone Bitart/Acetaminophen 1 tab 03/03/25 15:43 Hydrocodone/Acetaminophen (*Crx) 5-325 Mg Tablet PO Q4H PRN Pain Rated 4-6 Hydrocodone Bitart/Acetaminophen 1 tab 03/03/25 15:43 03/04/25 05:30 Hydrocodone/Acetaminophen (*Crx) 7.5-325 Mg Tablet PO 1 tab Q4H PRN Administration Pain Rated 7-10 Aspirin 325 mg 03/03/25 17:00 03/03/25 16:22 Aspirin 325 Mg Tablet PO 325 mg DAILY@0800 FERMIN Administration Celecoxib 200 mg 03/03/25 17:00 03/03/25 16:24 Celecoxib 200 Mg Capsule PO 200 mg BIDWM FERMIN Administration Diphenhydramine HCl 25 mg 03/03/25 15:43 Diphenhydramine Hcl Inj 50 Mg/Ml Vial IV PUSH Q6H PRN Itching Hydromorphone HCl 1 mg 03/03/25 14:08 03/04/25 02:40 Hydromorphone Hcl Inj (*Crx) 1 Mg/Ml Syr IV PUSH 1 mg Q2H PRN Administration Breakthrough Pain Rated 7-10 or NPO Hydromorphone HCl 0.5 mg 03/03/25 14:08 Hydromorphone Hcl Inj (*Crx) 1 Mg/Ml Syr IV PUSH Q2H PRN Breakthrough Pain Rated 4-6 or NPO Cefazolin Sodium 2 gm/ Sodium 50 mls @ 100 mls/hr 03/03/25 17:00 03/04/25 01:05 Chloride IVPB 03/04/25 09:29 100 mls/hr Q8H FERMIN Administration Levothyroxine Sodium 125 mcg 03/04/25 06:30 03/04/25 05:31 Levothyroxine Sodium 125 Mcg Tablet FEED TUBE Not Given DAILY@0630 [facility] Losartan Potassium 50 mg 03/03/25 15:43 03/03/25 16:26 Losartan Potassium 50 Mg Tablet PO Not Given DAILY FERMIN Naloxone HCl 0.1 mg 03/03/25 15:43 Naloxone Hcl 0.4 Mg/Ml Vial IV PUSH Q2M PRN Opiate Reversal Ondansetron HCl 4 mg 03/03/25 15:43 Ondansetron Inj 4 Mg/2 Ml Vial IV PUSH Q4H PRN Nausea And Vomiting Polyethylene Glycol 17 gm 03/04/25 09:00 Polyethylene Glycol 3350 17 Gm Powd.Pack PO QAM [facility] Senna/Docusate Sodium 2 tab 03/03/25 17:00 03/03/25 16:23 Senna/Docusate Sodium Tablet PO 2 tab BID FERMIN Administration Tramadol HCl 50 mg 03/03/25 15:43 Tramadol Hcl (*Crx) 50 Mg Tablet PO Q4H PRN Pain Rated 1-3 Radiology Results: ITS Impressions Knee X-Ray 03/03/25 09:51 IMPRESSION: 1. Right total knee arthroplasty, negative for postoperative purposes. Labs Labs: Laboratory Results - last 24 hr 03/04/25 06:14 WBC 10.7 H RBC 4.62 Hgb 12.4 Hct 39.7 MCV 85.9 MCH 26.8 MCHC 31.2 L RDW 13.8 Plt Count 223 MPV 9.2 Immature Gran % (Auto) 0.3 Neut % (Auto) 67.6 Lymph % (Auto) 19.9 Morrow % (Auto) 11.5 H Eos % (Auto) 0.1 Baso % (Auto) 0.6 Lymph # (Auto) 2.12 Morrow # (Auto) 1.2 H Eos # (Auto) 0.0 Baso # (Auto) 0.1 Abs Immat Gran (auto) 0.03 Absolute Neuts (auto) 7.2 H Absolute Nucleated RBC 0.000 Nucleated RBC % 0.0 Sodium 135 L Potassium 4.1 Chloride 105 Carbon Dioxide 22 Anion Gap 8 BUN 20 H Creatinine 0.79 Estim Creat Clear Calc 75 Estimated GFR > 60 Glucose 118 H Calcium 8.6
--- NOTE | 2025-03-04 07:25 | PC.NURSE ---
Recieved in report yesterday that patient did not want to take her regular meds from the hospital because her insurance doesnt cover it. Day RN instructed patient not to take any of her medications without a doctor order here in the hospital. Over night, the patient admitted that during dayshift at dinner time she took her home medications. Instructed patient again on the importance of not taking any medications without the doctor orders. Patient states she understands and wont take anymore and does not have any more medications with her. Upon shift change this am, patients blood pressure was low and patient admitted to the [facility] that she took her home meds again this am. Patient told me and the day RN, Aristeo, that she no longer has any more meds with her. Patients blood pressure increased after position changing and patient upset and states that she didnt realize it could do that. I had instructed that the pain medications that i was giving plus being post op could lower her blood pressure. Patient states shes hot but no other complaints. Day Rn at bedside. Patient kept reiterating that her insurance wont pay for her medications in the hospital.
--- NOTE | 2025-03-04 08:47 | PCOTNOTE ---
Attempted to see. Per RN. Patient unable to be seen at this time. Patient took her home medication and her pain medication this A.M. , now having low blood pressure, RN stated she will notify therapy when she is appropriate for services.
[2025-03-04] MEDS: CELECOXIB 200 MG CAPSULE PO ×2 (09:21→17:46)
[2025-03-04] MEDS: ASPIRIN 325 MG TABLET PO (09:22)
[2025-03-04] MEDS: SENNA/DOCUSATE SODIUM TABLET 2 TAB PO ×2 (09:22→17:46)
[2025-03-04 09:36] VITALS: BP 88/68; PULSE 86; RESP 16; TEMP 36.6; O2SAT 99
[2025-03-04 10:11] VITALS: BP 102/74; PULSE 81; RESP 18; TEMP 36.2; O2SAT 93
--- NOTE | 2025-03-04 13:01 | PM.IMCN2 ---
HPI Date of Consult Consult date: 03/04/25 Requesting Physician: Rupert Rico MD Primary Care Provider: Lucas Thomas MD Consult Narrative Narrative: Manda Chavez is a 64 year old female [facility] Past Medical History Medical History (Updated 03/04/25 @ 00:52 by Candice Jones APRN) REBEKAH (obstructive sleep apnea) does not wear a CPAP Chronic sinusitis Hypothyroidism Hypertension Osteoarthritis Surgical History Surgical History (Updated 03/04/25 @ 07:16 by Rupert Rico MD) S/P knee replacement (08/19/24) left knee History of right hip replacement 08/26/23 History of endometrial ablation (11/24/11) History of laparoscopy (09/17/11) With adhesiolysis. History of total abdominal hysterectomy and bilateral salpingo-oophorectomy (05/02/17) For uterine prolapse and cervical dysplasia. History of laser assisted in situ keratomileusis History of loop electrical excision procedure (LEEP) (1993) History of arthroscopy of left knee History of nasal surgery History of colposcopy (01/21/17) History of tonsillectomy History of partial thyroidectomy (2002) Right History of foot surgery right x 2 Family History Family History Sibling Diabetes mellitus Family history of seizure disorder Pancreatitis Father Family history of lung cancer, Onset Age: 59 Other Heart disease Mother COPD (chronic obstructive pulmonary disease) Emphysema/COPD Social History Social History Social History: Surrogate medical decision maker: Chica Anthony, sibling. Code status: Full code. Smoking status: Never smoker Second hand tobacco smoke exposure: No Additional smoking assessment comments: never smoker Alcohol intake: current Drinks per week: 2 Alcohol use details: BEER Substance use: current Substance use type: marijuana Other substance usage details: gummies to sleep Lack of Transportation: No Lack of Food: Never True Current Housing: I Have Housing Concerned About Future Housing: No Difficulty Paying Gas/Electric Bills: No Difficulty Paying for Meds: No Currently Unemployed: No Education: Bachelor's Degree Difficulty w/ Childcare or Family Care: No Living arrangements: alone Occupation/Education: occupation 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 Gender identity (if verbalized by the patient): Female Sexual Orientation (if Verbalized by the Patient): Straight or Heterosexual Spiritual care concerns: No Meds Home Medications and Allergies Home Medications ?Medication ?Instructions ?Recorded ?Confirmed ?Type omega 6-ckc-xys-fish oil 1,000 mg 1 cap PO DAILY 04/01/20 03/03/25 History (120 mg-180 mg) capsule (Fish Oil) fexofenadine 60 mg tablet (Yolande 60 mg PO QAM 01/30/21 03/03/25 History Allergy) cholecalciferol (vitamin D3) 50 100 mcg (2 x 50 mcg (2,000 unit)) 08/13/23 03/03/25 Rx mcg (2,000 unit) capsule PO DAILY #180 caps losartan 50 mg tablet See Rx Instructions .Route 07/10/24 03/03/25 Rx .COMPLEX #90 tabs azelastine 137 mcg (0.1 %) nasal 1 spray intranasal .qd-bid PRN 08/04/24 03/03/25 History spray allergy symptoms fluticasone propionate 50 1 spray intranasal BID PRN nasal 08/04/24 02/17/25 History mcg/actuation nasal congestion spray,suspension (Flonase Allergy Relief) levothyroxine 125 mcg tablet See Rx Instructions .Route 09/09/24 03/03/25 Rx .COMPLEX #90 tabs tolterodine 2 mg tablet 2 mg PO Q12H 10/27/24 03/03/25 History cetirizine 10 mg capsule (Zyrtec) 10 mg PO HS PRN allergy symptoms 11/27/24 03/03/25 History acetaminophen 650 mg 1,300 mg PO PRN PRN pain 02/17/25 02/17/25 History tablet,extended release (8 Hour Pain Reliever) aspirin 325 mg tablet (Tyler 325 mg PO PRN 02/17/25 02/17/25 History Aspirin) doxycycline hyclate 100 mg tablet 100 mg PO BID #20 tabs 03/04/25 Rx hydrocodone 7.5 mg-acetaminophen 1 tablet PO Q6H PRN pain #40 tabs 03/04/25 Rx 300 mg tablet hydrocodone 7.5 mg-acetaminophen 1 tablet PO Q4H PRN pain #40 tabs 03/04/25 Rx 325 mg tablet Allergies Allergy/AdvReac Type Severity Reaction Status Date / Time No Known Allergies Allergy Verified 03/03/25 11:59 Vital Signs Vital Signs - 24 hr 03/03/25 13:30 03/03/25 14:00 03/03/25 14:02 Temperature Pulse Rate 98 Respiratory Rate Blood Pressure 148/76 H Pulse Oximetry 98 Oxygen Delivery Nasal Cannula Room Air Nasal Cannula Oxygen Flow Rate 2 2 03/03/25 15:42 03/03/25 17:36 03/03/25 21:36 Temperature 97.1 F L 97.2 F L Pulse Rate 74 85 Respiratory Rate 14 18 Blood Pressure 150/90 H 130/78 Pulse Oximetry 99 99 Oxygen Delivery Room Air Oxygen Flow Rate 03/04/25 06:55 03/04/25 08:00 03/04/25 09:36 Temperature 97.0 F L 97.8 F Pulse Rate 92 86 Respiratory Rate 22 H 16 Blood Pressure 108/78 88/68 L Pulse Oximetry 96 99 Oxygen Delivery Room Air Oxygen Flow Rate 03/04/25 10:11 Temperature 97.2 F L Pulse Rate 81 Respiratory Rate 18 Blood Pressure 102/74 Pulse Oximetry 93 Oxygen Delivery Oxygen Flow Rate Results Labs 03/04/25 06:14 03/04/25 06:14 Labs: Short CBC 03/04/25 Range/Units 06:14 WBC 10.7 H (4.5-10.0) K/mm3 Hgb 12.4 (12.0-15.0) g/dL Hct 39.7 (37.0-47.0) % Plt Count 223 (150-375) k/mm3 BMP 03/04/25 06:14 Sodium 135 L Potassium 4.1 Chloride 105 Carbon Dioxide 22 BUN 20 H Creatinine 0.79 Glucose 118 H Calcium 8.6
--- NOTE | 2025-03-04 13:02 | PM.IMPN2 ---
Assessment and Plan Assessment and Plan (1) Osteoarthritis of right knee: Code(s): M17.11 - Unilateral primary osteoarthritis, right knee Status: Chronic Assessment and Plan: Total right knee arthroplasty done on 03/[address] Rico. Primary management through orthopedic team. - ambulate with assistance and up to chair - use IS - neurovasc checks every shift - SCDs and TEDs - analgesics and antiemetics p.r.n. - bowel regimen: docusate/senna, polyethylene glycol - PT/OT (2) Hypertension: Qualifiers: Hypertension type: primary hypertension Qualified Code(s): I10 - Essential (primary) hypertension Code(s): I10 - Essential (primary) hypertension Status: Chronic Assessment and Plan: Continue Cozaar, bp borderline this am. hold bp meds (3) Hypothyroidism (acquired): Code(s): E03.9 - Hypothyroidism, unspecified Status: Chronic Assessment and Plan: Continue levothyroxine Plan Diet: Regular DVT prophylaxis: SCDs lines/drains: PIV Fluids: Intraoperative fluids Code status: Full Subjective Date/time seen: 03/04/25 13:02 Interval history: no overnight events, ambulated with threapy. no fever, chills, sob, cehst pain Review of Systems Review of Systems: All systems reviewed & are unremarkable except as noted in HPI and below Exam Narrative: GENERAL: non-toxic appearing, in no acute distress. HEAD: Normocephalic, atraumatic. EYES: PERRLA. Conjunctivae clear. NOSE: Normal no drainage. THROAT: Pharynx clear, no exudate. NECK: Trachea midline. No adenopathy, no masses. RESPIRATORY: Airway patent, respirations nonlabored. CTA. CARDIOVASCULAR: Regular rate and rhythm BREASTS: Defer GASTROINTESTINAL: Abdomen is soft and nontender. No organomegaly. Bowel sounds normal in all quadrants. GENITOURINARY: Defer MUSCULOSKELETAL: Moves all extremities. Surgical dressing to right knee. No hematoma or excessive swelling. SKIN: Warm, dry, normal color. NEURO: A&O X4. Speech clear PSYCHIATRIC: Normal interaction Objective Data Vital Signs Vital Signs: Vital Signs - 24 hr 03/03/25 13:30 03/03/25 14:00 03/03/25 14:02 Temperature Pulse Rate 98 Respiratory Rate Blood Pressure 148/76 H Pulse Oximetry 98 Oxygen Delivery Nasal Cannula Room Air Nasal Cannula Oxygen Flow Rate 2 2 03/03/25 15:42 03/03/25 17:36 03/03/25 21:36 Temperature 97.1 F L 97.2 F L Pulse Rate 74 85 Respiratory Rate 14 18 Blood Pressure 150/90 H 130/78 Pulse Oximetry 99 99 Oxygen Delivery Room Air Oxygen Flow Rate 03/04/25 06:55 03/04/25 08:00 03/04/25 09:36 Temperature 97.0 F L 97.8 F Pulse Rate 92 86 Respiratory Rate 22 H 16 Blood Pressure 108/78 88/68 L Pulse Oximetry 96 99 Oxygen Delivery Room Air Oxygen Flow Rate 03/04/25 10:11 Temperature 97.2 F L Pulse Rate 81 Respiratory Rate 18 Blood Pressure 102/74 Pulse Oximetry 93 Oxygen Delivery Oxygen Flow Rate Intake/Output Intake/Output: Intake & Output 03/01/25 03/02/25 03/03/25 03/04/25 23:59 23:59 23:59 23:59 Intake Total 1460 766 Balance 1460 766 Meds/Results Medications: Active Medications Generic Name Dose Route Start Last Admin Trade Name Freq PRN Reason Stop Dose Admin Hydrocodone Bitart/Acetaminophen 1 tab 03/03/25 15:43 Hydrocodone/Acetaminophen (*Crx) 5-325 Mg Tablet PO Q4H PRN Pain Rated 4-6 Hydrocodone Bitart/Acetaminophen 1 tab 03/03/25 15:43 03/04/25 05:30 Hydrocodone/Acetaminophen (*Crx) 7.5-325 Mg Tablet PO 1 tab Q4H PRN Administration Pain Rated 7-10 Aspirin 325 mg 03/03/25 17:00 03/04/25 09:22 Aspirin 325 Mg Tablet PO 325 mg DAILY@0800 FERMIN Administration Celecoxib 200 mg 03/03/25 17:00 03/04/25 09:21 Celecoxib 200 Mg Capsule PO 200 mg BIDWM FERMIN Administration Diphenhydramine HCl 25 mg 03/03/25 15:43 Diphenhydramine Hcl Inj 50 Mg/Ml Vial IV PUSH Q6H PRN Itching Hydromorphone HCl 1 mg 03/03/25 14:08 03/04/25 02:40 Hydromorphone Hcl Inj (*Crx) 1 Mg/Ml Syr IV PUSH 1 mg Q2H PRN Administration Breakthrough Pain Rated 7-10 or NPO Hydromorphone HCl 0.5 mg 03/03/25 14:08 Hydromorphone Hcl Inj (*Crx) 1 Mg/Ml Syr IV PUSH Q2H PRN Breakthrough Pain Rated 4-6 or NPO Levothyroxine Sodium 125 mcg 03/04/25 06:30 03/04/25 05:31 Levothyroxine Sodium 125 Mcg Tablet FEED TUBE Not Given DAILY@0630 [facility] Losartan Potassium 50 mg 03/03/25 15:43 03/03/25 16:26 Losartan Potassium 50 Mg Tablet PO Not Given DAILY [facility] Naloxone HCl 0.1 mg 03/03/25 15:43 Naloxone Hcl 0.4 Mg/Ml Vial IV PUSH Q2M PRN Opiate Reversal Ondansetron HCl 4 mg 03/03/25 15:43 Ondansetron Inj 4 Mg/2 Ml Vial IV PUSH Q4H PRN Nausea And Vomiting Polyethylene Glycol 17 gm 03/04/25 09:00 03/04/25 09:21 Polyethylene Glycol 3350 17 Gm Powd.Pack PO 17 gm QAM FERMIN Administration Senna/Docusate Sodium 2 tab 03/03/25 17:00 03/04/25 09:22 Senna/Docusate Sodium Tablet PO [address] [facility] Administration Tramadol HCl 50 mg 03/03/25 15:43 Tramadol Hcl (*Crx) 50 Mg Tablet PO Q4H PRN Pain Rated 1-3 Wound Care/Dressing Products 1 each 03/04/25 09:00 Calcium-Sodium Alginate Bandage TOPICAL DAILY [facility] Radiology Results: ITS Impressions Knee X-Ray 03/03/25 09:51 IMPRESSION: 1. Right total knee arthroplasty, negative for postoperative purposes. Labs Labs: Laboratory Results - last 24 hr 03/04/25 06:14 WBC 10.7 H RBC 4.62 Hgb 12.4 Hct 39.7 MCV 85.9 MCH 26.8 MCHC 31.2 L RDW 13.8 Plt Count 223 MPV 9.2 Immature Gran % (Auto) 0.3 Neut % (Auto) 67.6 Lymph % (Auto) 19.9 [place] % (Auto) 11.5 H Eos % (Auto) 0.1 Baso % (Auto) 0.6 Lymph # (Auto) 2.12 [place] # (Auto) 1.2 H Eos # (Auto) 0.0 Baso # (Auto) 0.1 Abs Immat Gran (auto) 0.03 Absolute Neuts (auto) 7.2 H Absolute Nucleated RBC 0.000 Nucleated RBC % 0.0 Sodium 135 L Potassium 4.1 Chloride 105 Carbon Dioxide 22 Anion Gap 8 BUN 20 H Creatinine 0.79 Estim Creat Clear Calc 75 Estimated GFR > 60 Glucose 118 H Calcium 8.6
[2025-03-04 13:36] VITALS: BP 110/82; PULSE 140; RESP 18; TEMP 37.1; O2SAT 98
[2025-03-04] MEDS: SODIUM CHLORIDE 0.9% IV 1,000 ML 100 ML IV CONT (13:40)
--- NOTE | 2025-03-04 13:42 | ECG_ITS ---
Test Date: 2025-03-04 13:54:09 Measurements Intervals [place] Rate: 104 P: 60 MO: 147 QRS: -8 QRSD: 88 T: 61 QT: 319 QTc: 420 Interpretive Statements SINUS TACHYCARDIA BORDERLINE T WAVE ABNORMALITY- ANTERIOR LEADS BASELINE ARTIFACT- I, III, AVL, V1, V5-V6 BORDERLINE ECG Compared to ECG 06/24/2024 09:06:52 HEART RATE HAS INCREASED Electronically Signed On 03-04-2025 13:56:16 FLAME CUTTING MACHINE OPERATOR by Daryn Knott D.O.
[2025-03-04 14:10] VITALS: PULSE 104
[2025-03-04] MEDS: HYDROcodone/acetaminophen (*CRX) 5-325 MG TABLET 1 TAB PO (15:33)
--- NOTE | 2025-03-04 16:29 | PC.NURSE ---
This RN did bedside shift report with the night RN. Pt had taken her AM losartan and at shift change, initial reading for BP was 70s/30s with HR 180. Manual BP taken. BP 90/62 R arm, HR 132. Close monitoring with frequent vitals by RNs today. Pt had been educated by this RN on admission at 03/03/25 that she should not take her own home medications. Pt visitor stated she had her medications with her. This RN instructed the visitor to take the home meds home. Pt and visitor agreeable. Pt was choosing which of her scheduled medications she would take. She was insistent she would only take medications that she had not been previously prescribed because her insurance would not pay for them. This RN educated pt on the importance of taking her daily medications (such as levothyroxine) and the importance of closely monitoring her BP while on her narcotics. Pt voices understanding. Night RN stated that she had admitted to taking some of her own medications after we left the room, and the night RN reiterated that she should not be taking any medications without her RN's awareness. Night RN stated she voiced understanding. Pain medications held this AM and early afternoon as pt vitals/BP were insufficient for narcotic administration. Pt upset, but states she understands, even though she repeatedly states that it worked last time she was in (surgery on her L knee). Hospitalist was called to determine if they felt patient was stable to discharge today. Hospitalist stated she needed to remain here overnight to monitor BP/pain medication administration. Pt also very concerned that her insurance company was telling [facility] they would fill her pain meds at [facility] 7[facility]5/300 or [facility] 7/325 with qty 40. Call made to MD Jacky to request prescription update and notify him that pt would remain here overnight.
[2025-03-04 21:28] VITALS: BP 132/62; PULSE 103; RESP 16; TEMP 36.3; O2SAT 97
--- NOTE | ~2025-03-05 | XR_ITS ---
EXAMINATION: [id number] DATE: 03/03/2025 09:50 INDICATION: Postoperative evaluation following right knee arthroplasty. TECHNIQUE: Anteroposterior and lateral views of the right knee were obtained. COMPARISON: None. FINDINGS: Right total knee arthroplasty with patellar resurfacing appears well seated and in near anatomic alignment. No fractures identified. Expected postoperative subcutaneous and intra-articular gas. Anterior skin mary jane. IMPRESSION: 1. Right total knee arthroplasty, negative for postoperative purposes. Reviewed, dictated and finalized at location A. 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
[2025-03-05] MEDS: HYDROcodone/acetaminophen (*CRX) 7.5-325 MG TABLET 1 TAB PO (05:19)
[2025-03-05 05:51] VITALS: BP 150/80; PULSE 88; RESP 16; TEMP 36.2; O2SAT 99
[2025-03-05 06:25] LABS: Hematocrit 39.3 % (37.0-47.0); Hemoglobin 11.9 g/dL (12.0-15.0); Immature Granulocyte Percent A 0.3 % (0-0.5); Lymphocytes Absolute Auto 1.40 K/mm3 (0.9-3.2); Mean Corpuscular HGB Conc 30.3 g/dl (32-36); Mean Corpuscular Hemoglobin 26.6 pg (26-34); Mean Corpuscular Volume 87.7 fl (80-100); Nucleated Red Blood Cells Absolute Auto 0.000 K/mm3 (0.0-0.012); Nucleated Red Blood Cells Perc 0.0 % (0.0-0.2); Platelet Count Result 161 k/mm3 (150-375); Red Blood Count 4.48 M/mm3 (4.2-5.4); White Blood Count 7.9 K/mm3 (4.5-10.0)
[2025-03-05 06:48] LABS: Alanine Aminotransferase 38 U/L (6-35); Albumin Level 3.5 g/dL (3.5-5.1); Alkaline Phosphatase 75 U/L (38-126); Anion Gap 2 mmol/L (4-12); Aspartate Amino Transferase 42 U/L (14-36); Bilirubin,Total 0.7 mg/dL (0.2-1.3); Blood Urea Nitrogen 18 mg/dL (7-17); Calcium 9.1 mg/dL (8.4-10.2); Carbon Dioxide 26 mmol/L (22-30); Chloride 107 mmol/L (98-107); Estimated CRCL calculation 77 ml/min; Estimated Glomerular Filt Rate > 60; Glucose 110 mg/dL (65-110); Magnesium 2.1 mg/dL (1.6-2.3); Potassium 4.3 mmol/L (3.4-5.0); Sodium 135 mmol/L (137-145); Total Protein 5.8 g/dL (6.3-8.2)
[2025-03-05] MEDS: CELECOXIB 200 MG CAPSULE PO (08:09)
[2025-03-05] MEDS: ASPIRIN 325 MG TABLET PO (08:09)
--- NOTE | 2025-03-05 10:33 | P.PNIM_ITS ---
Assessment and Plan Assessment and Plan (1) Osteoarthritis of right knee: Code(s): M17.11 - Unilateral primary osteoarthritis, right knee Status: Chronic Assessment and Plan: Total right knee arthroplasty done on 03/[address] Rico. Primary management through orthopedic team. - ambulate with assistance and up to chair - use IS - neurovasc checks every shift - SCDs and TEDs - analgesics and antiemetics p.r.n. - bowel regimen: polyethylene glycol, can change docusate/senna to PRN - PT/OT (2) Hypertension: Qualifiers: Hypertension type: primary hypertension Qualified Code(s): I10 - Essential (primary) hypertension Code(s): I10 - Essential (primary) hypertension Status: Chronic Assessment and Plan: Continue Cozaar, reduce from 50>25 pending follow up bp 150's this morning. 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 Patient took a dose of losartan 50mg from her home medications, also her tolterodine 2mg. Has been refusing medications here because she was worried about cost of medications, that they would be charged on top of her hospitalization. Home med: Losartan 50mg daily. Reduce to 25mg for discharge since BP 88/68. Likely lower than usual in the setting of pain medications. Can likely resume home dose at follow up with PCP Otherwise reports having a BP today, explosive after laxatives Review of Systems Review of Systems: All systems reviewed & are unremarkable except as noted in HPI and below Exam Narrative: GENERAL: non-toxic appearing, in no acute distress. HEAD: Normocephalic, atraumatic. EYES: PERRLA. Conjunctivae clear. NOSE: Normal no drainage. THROAT: Pharynx clear, no exudate. NECK: Trachea midline. No adenopathy, no masses. RESPIRATORY: Airway patent, respirations nonlabored. CTA. CARDIOVASCULAR: Regular rate and rhythm BREASTS: Defer GASTROINTESTINAL: Abdomen is soft and nontender. No organomegaly. Bowel sounds normal in all quadrants. GENITOURINARY: Defer MUSCULOSKELETAL: Moves all extremities. Surgical dressing to right knee. No hematoma or excessive swelling. SKIN: Warm, dry, normal color. NEURO: A&O X4. Speech clear PSYCHIATRIC: Normal interaction Objective Data Vital Signs Vital Signs: Vital Signs - 24 hr 03/04/25 13:36 03/04/25 14:10 03/04/25 21:28 Temperature 98.7 F 97.4 F L Pulse Rate 140 H 104 H 103 H Respiratory Rate 18 16 Blood Pressure 110/82 132/62 Pulse Oximetry 98 97 Oxygen Delivery 03/05/25 05:51 03/05/25 08:00 Temperature 97.2 F L Pulse Rate 88 Respiratory Rate 16 Blood Pressure 150/80 H Pulse Oximetry 99 Oxygen Delivery Room Air Intake/Output Intake/Output: Intake & Output 03/02/25 03/03/25 03/04/25 03/05/25 23:59 23:59 23:59 23:59 Intake Total 1460 1345.3 540 Balance 1460 1345.3 540 Meds/Results Medications: Active Medications Generic Name Dose Route Start Last Admin Trade Name Freq PRN Reason Stop Dose Admin Hydrocodone Bitart/Acetaminophen 1 tab 03/03/25 15:43 03/04/25 15:33 Hydrocodone/Acetaminophen (*Crx) 5-325 Mg Tablet PO 1 tab Q4H PRN Administration Pain Rated 4-6 Hydrocodone Bitart/Acetaminophen 1 tab 03/03/25 15:43 03/05/25 05:19 Hydrocodone/Acetaminophen (*Crx) 7.5-325 Mg Tablet PO 1 tab Q4H PRN Administration Pain Rated 7-10 Aspirin 325 mg 03/03/25 17:00 03/05/25 08:09 Aspirin 325 Mg Tablet PO 325 mg DAILY@0800 FERMIN Administration Celecoxib 200 mg 03/03/25 17:00 03/05/25 08:09 Celecoxib 200 Mg Capsule PO 200 mg BIDWM FERMIN Administration Diphenhydramine HCl 25 mg 03/03/25 15:43 Diphenhydramine Hcl Inj 50 Mg/Ml Vial IV PUSH Q6H PRN Itching Hydromorphone HCl 1 mg 03/03/25 14:08 03/04/25 02:40 Hydromorphone Hcl Inj (*Crx) 1 Mg/Ml Syr IV PUSH 1 mg Q2H PRN Administration Breakthrough Pain Rated 7-10 or NPO Hydromorphone HCl 0.5 mg 03/03/25 14:08 Hydromorphone Hcl Inj (*Crx) 1 Mg/Ml Syr IV PUSH Q2H PRN Breakthrough Pain Rated 4-6 or NPO Sodium Chloride 1,000 mls @ 100 mls/hr 03/04/25 13:45 03/04/25 19:00 Normal Saline Iv IV CONT Not Given .Q10H [facility] Levothyroxine Sodium 125 mcg 03/04/25 06:30 03/05/25 05:20 Levothyroxine Sodium 125 Mcg Tablet FEED TUBE Not Given DAILY@0630 [facility] Losartan Potassium 50 mg 03/03/25 15:43 03/05/25 08:13 Losartan Potassium 50 Mg Tablet PO Not Given DAILY [facility] Naloxone HCl 0.1 mg 03/03/25 15:43 Naloxone Hcl 0.4 Mg/Ml Vial IV PUSH Q2M PRN Opiate Reversal Ondansetron HCl 4 mg 03/03/25 15:43 Ondansetron Inj 4 Mg/2 Ml Vial IV PUSH Q4H PRN Nausea And Vomiting Polyethylene Glycol 17 gm 03/04/25 09:00 03/05/25 06:17 Polyethylene Glycol 3350 17 Gm Powd.Pack PO Not Given QAM [facility] Senna/Docusate Sodium 2 tab 03/03/25 17:00 03/05/25 06:16 Senna/Docusate Sodium Tablet PO Not Given BID [facility] Tramadol HCl 50 mg 03/03/25 15:43 Tramadol Hcl (*Crx) 50 Mg Tablet PO Q4H PRN Pain Rated 1-3 Wound Care/Dressing Products 1 each 03/04/25 09:00 03/04/25 15:56 Calcium-Sodium Alginate Bandage TOPICAL Not Given DAILY [facility] Radiology Results: ITS Impressions Knee X-Ray 03/03/25 09:51 IMPRESSION: 1. Right total knee arthroplasty, negative for postoperative purposes. Labs Labs: Laboratory Results - last 24 hr 03/05/25 06:06 WBC 7.9 RBC 4.48 Hgb 11.9 L Hct 39.3 MCV 87.7 MCH 26.6 MCHC 30.3 L RDW 14.2 Plt Count 161 MPV 9.4 Immature Gran % (Auto) 0.3 Neut % (Auto) 66.3 Lymph % (Auto) 17.8 L [place] % (Auto) 11.0 H Eos % (Auto) 3.8 Baso % (Auto) 0.8 Lymph # (Auto) 1.40 [place] # (Auto) 0.9 H Eos # (Auto) 0.3 Baso # (Auto) 0.1 Abs Immat Gran (auto) 0.02 Absolute Neuts (auto) 5.2 Absolute Nucleated RBC 0.000 Nucleated RBC % 0.0 Sodium 135 L Potassium 4.3 Chloride 107 Carbon Dioxide 26 Anion Gap 2 L BUN 18 H Creatinine 0.77 Estim Creat Clear Calc 77 Estimated GFR > 60 Glucose 110 Calcium 9.1 Magnesium 2.1 Total Bilirubin 0.7 AST 42 H ALT 38 H Alkaline Phosphatase 75 Total Protein 5.8 L Albumin 3.5 Quality VTE Prophylaxis VTE prophylaxis: mechanical ordered Hospitalist MIPS Advance Care Plan I have confirmed that the patient's Advanced Care Plan is present, code status is documented, or surrogate decision maker is listed in patient medical record.: Yes Medication Reconciliation I have utilized all available resources to obtain, update and review the patients current medications (includes all prescriptions, OTC, herbals, cannabis, and nutritional supplements).: Yes
--- NOTE | 2025-03-05 11:06 | PM.DS ---
DS: Admitting Diagnosis Discharge Date 03/05/2025 Admitting Diagnosis Osteoarthritis Right Knee DS: Discharge Diagnosis Discharge Diagnosis Plan Right knee replacement DS: Summary Hospital Course Hospital Course: Patient underwent TKA Right for osteoarthritis. This was complicated by a drop in Blood Pressure necessitating an extra day. She is now able to be discharged home. Follow up 2 weeks. Status at Discharge Functional status at discharge: uses cane/walker Time Spent with Patient Time attestation: Total time spent providing and/or coordinating discharge services: Exam Narrative: Dressing is intact. Neurologically she wiggles her toes and good walk. Pain is under control. DS: Data Data Completed and Pending Labs on day of discharge: Labs from last 24 hours 03/05/25 06:06 WBC 7.9 RBC 4.48 Hgb 11.9 L Hct 39.3 MCV 87.7 MCH 26.6 MCHC 30.3 L RDW 14.2 Plt Count 161 MPV 9.4 Immature Gran % (Auto) 0.3 Neut % (Auto) 66.3 Lymph % (Auto) 17.8 L [place] % (Auto) 11.0 H Eos % (Auto) 3.8 Baso % (Auto) 0.8 Lymph # (Auto) 1.40 [place] # (Auto) 0.9 H Eos # (Auto) 0.3 Baso # (Auto) 0.1 Abs Immat Gran (auto) 0.02 Absolute Neuts (auto) 5.2 Absolute Nucleated RBC 0.000 Nucleated RBC % 0.0 Sodium 135 L Potassium 4.3 Chloride 107 Carbon Dioxide 26 Anion Gap 2 L BUN 18 H Creatinine 0.77 Estim Creat Clear Calc 77 Estimated GFR > 60 Glucose 110 Calcium 9.1 Magnesium 2.1 Total Bilirubin 0.7 AST 42 H ALT 38 H Alkaline Phosphatase 75 Total Protein 5.8 L Albumin 3.5 Discharge Plan Discharge Attending physician on discharge: Rupert Rico Consulting providers: Candice Jones; Suzie Delgado Discharging Clinician: Rupert Rico Patient Disposition: Home with Home Health Service Activity: unlimited Diet: as tolerated Wound Care Instructions: keep dressing dry Discharge Instructions: Dr. Rupert Rico M.D [address] [facility] [address] [place] [id number] POST-OPERATIVE DISCHARGE INSTRUCTIONS TOTAL KNEE ARTHROPLASTY 1. When resting, do not rest in the chair.When resting, lie on your back, with back flat on the couch or bed, with leg elevated above heart to minimize swelling. You may put a pillow under your head. . Significant swelling could indicate a blood clot and if this occurs call the office (or go to the ER) to have a venous ultrasound. Therefore, do not rest in a chair. 2. At least five times a day spend several minutes stretching your knee into flexion while sitting in the chair and also stretching your knee out straight The abilities to bend your knee fulling and straighten your knee fully are two most important knee functions to focus on during your recovery. 3. It is ok to sit in chair to eat, use the toilet and receive a guest and to do your stretching exercises, but, sitting in a chair will cause your leg to swell. Therefore, avoid additional time sitting in the chair. and don't rest in the chair. 4. Wound Care: Nursing will give you an additional Mepilex dressing at the time of discharge. Patient to remove the dressing and apply a new Mepilex dressing at home 7 days after surgery and leave the dressing on until seen in office. 5. May shower with a Mepilex dressing in place.The water will run off the dressing. 6. Unless you are told otherwise, you may put full weight on your operated leg. Use a walker for balance and practice walking as normally as you can, ideally for a few minutes every hour while you are awake. 7. I would advise against putting ice packs on your knee incision. Ice constricts blood flow which can impar healing of the knee incision. IMPORTANT: Remember not to sit in the chair for more than 30 minutes at a time. As a rule, during the first 14 days after surgery, only sit in the chair to work on the chair knee bending stretch exercise, for meals or for use of the restroom. Sitting in the chair promotes significant swelling in the knee and leg which will make your knee stiff and more painful and which simulates having a blood clot in the veins of the leg. If this type of significant diffuse swelling occurs, an ultrasound at the hospital will be necessary to rule out a blood clot. Be up walking around with the walker for a few minutes every hour while awake and then rest laying on your back on the couch or in bed with your leg elevated on cushions or pillows. Do not rest in the chair. Patient Instructions: Antibiotic Form Patient Language: Croatian Stand Alone Forms: General Discharge Information, General Discharge Instructions Follow-up/Referrals: Rupert Rico MD [Physician, Orthopedics] Discharge Medications: New doxycycline hyclate 100 mg tablet 100 mg PO BID Qty: 20 0RF Continued fexofenadine [Yolande Allergy] 60 mg tablet 60 mg PO QAM Patient Comments: TAKES 180 MG Zyrtec 10 mg capsule 10 mg PO HS PRN (Reason: allergy symptoms) tolterodine 2 mg tablet 2 mg PO Q12H fluticasone propionate [Flonase Allergy Relief] 50 mcg/actuation spray,suspension 1 spray intranasal BID PRN (Reason: nasal congestion) Rx Instructions: administer into each nostril azelastine 137 mcg (0.1 %) spray,non-aerosol 1 spray intranasal .qd-bid PRN (Reason: allergy symptoms) Rx Instructions: administer into each nostril. Aim back/up/out omega 1-qab-awn-fish oil [Fish Oil] 1,000 mg (120 mg-180 mg) Capsule 1 cap PO DAILY acetaminophen [8 Hour Pain Reliever] 650 mg tablet extended release 1,300 mg PO PRN PRN (Reason: pain) aspirin [Tylre Aspirin] 325 mg tablet 325 mg PO PRN cholecalciferol (vitamin D3) 50 mcg (2,000 unit) capsule 100 mcg PO DAILY Qty: 180 2RF losartan 50 mg tablet See Rx Instructions .ROUTE .COMPLEX Qty: 90 2RF Dose Instruction: TAKE 1 TABLET BY MOUTH DAILY Rx Instructions: TAKE 1 TABLET BY MOUTH DAILY levothyroxine 125 mcg tablet See Rx Instructions .ROUTE .COMPLEX Qty: 90 2RF Dose Instruction: TAKE 1 TABLET BY MOUTH DAILY Rx Instructions: TAKE 1 TABLET BY MOUTH DAILY No Action hydrocodone-acetaminophen 7.5-325 mg tablet 1 tablet PO Q4H PRN (Reason: pain) Qty: 28 0RF Date of admission: 03/05/25 09:08 Primary Care Provider: Lucas Thomas Admitting Provider: Rupert Rico Attending physician on admission: Rupert Rico Condition: Improved
== END 2025-03-05 12:10 | disposition home health service (06) ==
LOC: ANHSURGERY 09:10 → ANH3MEDSUR 09:10
PROVIDERS: Internal Medicine; Admitting Provider Orthopaedic Surgery; PCP Emergency Medicine; Visit Provider Orthopaedic Surgery
PROC: (CPT 27447; principal; 2025-03-03 07:30)
DX: M17.11 Unilateral primary osteoarthritis, right knee (principal); G47.33 Obstructive sleep apnea (adult) (pediatric); E03.9 Hypothyroidism, unspecified; I10 Essential (primary) hypertension; Z96.652 Presence of left artificial knee joint; Z96.641 Presence of right artificial hip joint
CPT/HCPCS: 27447; 36415; 73560; 80048; 80053; 83735; 85025; 93005; 97110; 97161; 97166; 97530; 97535; J0690; A9270; C1713; C1776; G0378; J0166; J1100; J1171; J1885; J2270; J2405; J2704; J2795; J3010; J3290; J3373; J7030; J7120